=== PATIENT | male | born 1975 | race Caucasian/White ===

== ENCOUNTER 2023-07-24 17:08 | Inpatient (IN) ==
[2023-07-24 18:01] LABS: Basophils # (auto) 0.06 K/uL (0.00-0.20); Basophils % (auto) 0.9 %; Eosinophils # (auto) 0.17 K/uL (0.00-0.50); Eosinophils % (auto) 2.6 %; Hematocrit (blood only) 46.2 % (42.0-52.0); Hemoglobin 16.9 g/dl (14.0-18.0); Immature Granulocytes # (auto) 0.01 K/uL (0.01-0.20); Immature Granulocytes % (auto) 0.2 %; Lymphocytes # (auto) 1.49 K/uL (1.20-3.40); Lymphocytes % (auto) 23.1 %; Mean Corpuscular Hemoglobin 31.5 pg (25.0-34.0); Mean Corpuscular Hgb Conc 36.6 g/dL (32.0-36.0); Mean Corpuscular Volume 86.2 fL (80.0-100.0); Mean Platelet Volume 10.9 fL (9.4-12.4); Monocytes # (auto) 0.62 K/uL (0.11-0.59); Monocytes % (auto) 9.6 %; Neutrophils % (auto) 63.6 %; Platelet Count 216 K/uL (130-400); RDW Coefficient of Variation 12.5 % (11.5-14.5); RDW Standard Deviation 39.3 fL (36.4-46.3); Red Blood Count 5.36 M/uL (4.70-6.10); White Blood Count 6.45 K/ul (4.8-10.8)
[2023-07-24 18:17] LABS: Albumin Globulin Ratio 1.7 (0.9-2); Albumin Level 4.6 gm/dl (3.4-5.0); BUN Creatinine Ratio 18.9 (10-20); Bilirubin,Total 0.5 mg/dl (0.2-1.0); Calcium 9.6 mg/dl (8.6-10.3); Creatinine Clr Calc Pharmacy 104.6 ml/min; Est GFR (Non-African American) 99.2 ml/min; Globulin 2.7 gm/dl (2.5-4.0); Potassium 3.9 mmol/L (3.5-5.1); Total Protein 7.3 gm/dl (6.0-8.3)
[2023-07-24 18:20] LABS: Appearance Urine Clear (Clear); Bilirubin Urine Negative (Negative); Blood Urine Negative (Negative); Color Urine Yellow; Glucose Urine UA Negative (Negative); Ketones Urine Negative (Negative); Leukocyte Esterase Urine Negative (Negative); Nitrite Urine Negative (Negative); Protein Urine Negative (Negative); Specific Gravity Urine 1.006 (1.000-1.030); Urobilinogen Urine Negative (Negative)
[2023-07-24 18:22] LABS: Acetaminophen < 3 ug/ml (10-30); Salicylate < 3.0 mg/dl (3.0-30)
[2023-07-24 18:30] LABS: Thyroid Stimulating Hormone 2.228 uIu/ml (0.300-4.500)
[2023-07-24] MEDS ORDERED: LORazepam 1 MG TAB SL STA (19:07)
[2023-07-24 19:25] LABS: Amphetamines+Metham, Urine Neg (Neg); Barbiturates, Urine Neg (Neg); Benzodiazepine, Urine Neg (Neg); Cocaine, Urine Neg (Neg); MDMA (Ecstacy), Urine Neg (Neg); Marijuana, Urine Neg (Neg); Methadone, Urine Neg (Neg); Opiate, Urine Neg (Neg); Phencyclidine, Urine Neg (Neg)
[2023-07-24] MEDS ORDERED: MAGNESIUM HYDROXIDE SUSP 30 ML UDC PO PRN (21:13)
[2023-07-24] MEDS ORDERED: BISMUTH SUBSALICYLATE LIQD 236 ML PO PRN (21:13)
[2023-07-24] MEDS ORDERED: ALUMINUM/MAGNESIUM SUSP 30 ML UDC PO PRN (21:13)
[2023-07-24] MEDS ORDERED: ACETAMINOPHEN 325 MG TAB PO PRN (21:13)
[2023-07-24] MEDS ORDERED: SODIUM CHLORIDE 0.65% NA SOLN 45 ML (OCEAN) PRN (21:13)
[2023-07-24] MEDS ORDERED: hydrOXYzine HCl 25 MG TAB PO PRN (21:13)
--- NOTE | 2023-07-24 21:30 | Emergency Department Note ---
History of Present Illness General Chief complaint: Mental Health Evaluation Stated complaint: MENTAL EVAL Time Seen by Provider: 07/24/23 17:19 Source: patient and family () History of Present Illness Provider complaint: Mental health evaluation 48-year-old male presents emergency department for mental health evaluation. Patient states he has a history of depression and anxiety. He states he has been feeling suicidal for the last 2 months and recently confessed to his that he is plan to kill himself by shooting himself. He does have access to guns. reports that the patient has not been taking his medications Lexapro or buspirone. The patient does report increased alcohol usage in the last week due to his depression. Past Med/Surg History Medical History No pertinent family history Depression Anxiety Surgical History No pertinent past surgical history Social History Smoking Status: Current some day smoker Preferred Language: Guyanese Feels Safe at Home: Yes Gender Identity: Male Physical Exam Vital Signs Vital Signs - 24 hr 07/24/23 17:13 07/24/23 18:09 Temperature 36.7 C 36.5 C Temperature Source Temporal Artery Scan Oral Pulse Rate 86 Respiratory Rate 19 20 Respiratory Effort / Characteristics Non-Labored Non-Labored Respiratory Depth Normal Normal Blood Pressure 138/93 Blood Pressure [Right Arm] 126/96 Blood Pressure Mean 108 Blood Pressure Mean [Right Arm] 106 Blood Pressure Position [Right Arm] Sitting Pulse Oximetry 99 97 Oxygen Delivery Method Room Air Room Air Sepsis Recent Fever Within 48 Hours No Sepsis New/Unexplained Change in Mental Status No Sepsis Action Taken by Nursing No Action Required Physical Exam GENERAL: oriented to person, place, and time. appears well-developed and well- nourished. HENT: Exam performed. - Head: Normocephalic and atraumatic. EYES: Conjunctivae and EOM are normal. Right eye exhibits no discharge. Left eye exhibits no discharge. No scleral icterus. NECK: Normal range of motion. Neck supple. No JVD present. CV: Normal rate, regular rhythm, normal heart sounds and intact distal pulses. There is no peripheral edema. Palpable radial pulses bue. PULM/CHEST: Effort normal and breath sounds normal. No respiratory distress. No stridor. no wheezes. no rales. ABD: The abdomen is soft. There is no tenderness. NEURO: Motor and sensation grossly intact. SKIN: Skin is warm and dry. He is not diaphoretic. PSYCH: Depressed suicidal. Course Course 171: The patient was evaluated in room B8. A complete history and physical exam was performed 1800: Patient medically cleared. Awaiting psychiatric evaluation and placement. Patient placed in observation at this time. 2100: Patient excepted to 3 S. Administered Medications Discontinued Medications Lorazepam (Lorazepam 1 Mg Tab) 1 mg SL NOW STA Stop: 07/24/23 19:08 Last Admin: 07/24/23 19:12 Dose: 1 mg Documented By: ED Medical Decision Making Laboratory Data Attestation: I reviewed the patient's lab results. 07/24/23 17:31 07/24/23 17:31 Lab Results 07/24/23 07/24/23 07/24/23 Range/Units 17:31 17:32 18:05 WBC 6.45 (4.8-10.8) K/ul RBC 5.36 (4.70-6.10) M/uL Hgb 16.9 (14.0-18.0) g/dl Hct 46.2 (42.0-52.0) % MCV 86.2 (80.0-100.0) fL MCH 31.5 (25.0-34.0) pg MCHC 36.6 H (32.0-36.0) g/dL RDW Std Deviation 39.3 (36.4-46.3) fL RDW Coeff of David 12.5 (11.5-14.5) % Plt Count 216 (130-400) K/uL MPV 10.9 (9.4-12.4) fL Immature Gran % (Auto) 0.2 % Neut % (Auto) 63.6 % Lymph % (Auto) 23.1 % [place] % (Auto) 9.6 % Eos % (Auto) 2.6 % Baso % (Auto) 0.9 % Neut # (Auto) 4.10 (1.40-6.50) K/uL Lymph # (Auto) 1.49 (1.20-3.40) K/uL [place] # (Auto) 0.62 H (0.11-0.59) K/uL Eos # (Auto) 0.17 (0.00-0.50) K/uL Baso # (Auto) 0.06 (0.00-0.20) K/uL Immature Gran # (Auto) 0.01 (0.01-0.20) K/uL Sodium 139 (136-145) mmol/L Potassium 3.9 (3.5-5.1) mmol/L Chloride 104 (98-107) mmol/L Carbon Dioxide 29 (21-32) mmol/L Anion Gap 6 (3-11) BUN 17 (6-23) mg/dl Creatinine 0.90 (0.6-1.4) mg/dl Est Cr Clr Drug Dosing 104.6 ml/min Est GFR ( Amer) 115.0 ml/min Est GFR (Non-Af Amer) 99.2 ml/min BUN/Creatinine Ratio 18.9 (10-20) Glucose 104 H (70-99(Fasting)) mg/dl Calcium 9.6 (8.6-10.3) mg/dl Total Bilirubin 0.5 (0.2-1.0) mg/dl AST 24 (13-39) U/L ALT 29 (7-52) U/L Alkaline Phosphatase 74 (34-104) U/L Total Protein 7.3 (6.0-8.3) gm/dl Albumin 4.6 (3.4-5.0) gm/dl Globulin 2.7 (2.5-4.0) gm/dl Albumin/Globulin Ratio 1.7 (0.9-2) TSH 2.228 (0.300-4.500) uIu/ml Urine Color Yellow Urine Appearance Clear (Clear) Urine pH 7.0 (4.5-7.5) Ur Specific [place] 1.006 (1.000-1.030) Urine Protein Negative (Negative) Urine Glucose (UA) Negative (Negative) Urine Ketones Negative (Negative) Urine Blood Negative (Negative) Urine Nitrite Negative (Negative) Urine Bilirubin Negative (Negative) Urine Urobilinogen Negative (Negative) Ur Leukocyte Esterase Negative (Negative) Salicylates < 3.0 L (3.0-30) mg/dl Urine Opiates Screen Neg (Neg) Ur Methadone, Qual Neg (Neg) Acetaminophen < 3 L (10-30) ug/ml Urine Barbiturates Neg (Neg) Ur Phencyclidine (PCP) Neg (Neg) U Amphetamin/Meth Scrn Neg (Neg) MDMA (Ecstasy) Screen Neg (Neg) U Benzodiazepines Scrn Neg (Neg) Ur Cocaine Metabolite Neg (Neg) U Marijuana (THC) Screen Neg (Neg) Ethyl Alcohol mg/dL < 10.0 (<10.0) mg/dl SARS-CoV-2, RNA, NAAT NEGATIVE (NEGATIVE) MDM Narrative 1719: The patient was evaluated in room B8. A complete history and physical exam was performed 1800: Patient medically cleared. Awaiting psychiatric evaluation and placement. Patient placed in observation at this time. 2100: Patient excepted to 3 S. Observation note Indication: Psych eval/placement Patient, with depression, anxiety was first seen at 1719 hrs and the observation time began at 1800 hrs and was necessary in order to have psych evaluation completed . Upon re-evaluation, 3 hours of observation revealed that the patient should be admitted to 3 S. Disposition date and time July 24, 2023 2100. Impression & Plan Depression with suicidal ideation Discharge Plan Visit Data Chief Complaint: Mental Health Evaluation Stated Complaint: MENTAL EVAL ED Provider: Miguel Laws Discharge Problem: Depression with suicidal ideation Patient Disposition: Admitted As Inpatient Forms Stand Alone Forms: [facility], Suicide Prevention Resources Referrals Referrals: Tate Deluca D.O. [Primary Care Provider] -
[2023-07-24] MEDS: hydrOXYzine HCl 25 MG TAB PO PRN (22:23)
--- NOTE | 2023-07-25 08:02 | History & Physical ---
Date of Service July 25, 2023 Impression / Recommendations Impression 48 yo male with hx of anxiety and previous depression with worsening symptoms in past 2-4 weeks, hx of side effects to multiple SSRIs, Lexapro was most helpful but will not restart as caused hair loss and ?burning in arms. 65 min spent Overall, I spent with this case, including review of chart, direct evaluation of the patient, counseling the patient, coordination with nursing and social work , risk assessment, and documentation. (1) Major depressive disorder, recurrent episode: (2) Generalized anxiety disorder: Plan The patient was admitted to the [facility] ([facility]) on q15 min checks (behavioral with suicide precautions) for safety. The patient will participate in group, recreational, and milieu therapies and will be off ered additional individual and family sessions as clinically appropriate. Discussed possible trial of an SNRI. Inventory Assets Strengths: verbal, utilizes family supports Needs: improve coping skills, safety plan around weapons Suicide Risk Level Suicide Risk Level: High-Moderate (q15 min suicide checks) Risk Factors Assessment Male: Yes : Yes Do You Have Access To A Gun?: Yes ( to secure) Mental Health Diagnoses: Yes Substance Use Disorders: No Previous Attempt: No Family History of Suicide: Yes Previous Psychiatric Hospitalization: No Protective Factors Assessment Baptism Beliefs: Yes : Yes Employed: Yes Supportive Family: Yes Psychiatric History Identifying Data COLIN MEJIAS is a 48-year-old M who currently lives in [place], has no prior inpatient hospitalizations, and was admitted on 07/24/23 21:13 on a 201 voluntary commitment for SI with plan. Chief Complaint "It's hard to explain, I just feel like I could melt." History of Present Illness Today the patient reports dealing with longstanding anxiety mixed with intermittent periods of depression since his 20s. He has taken several medications through his primary care office with some perceived benefit but side effects such as restlessness, "stopped working," or having skin irritation. He hasn't taken any medication for a few months after feeling "off" with Seroquel and Buspar. He notes that life in general is "fine" in that he has stable employment and good relationships with his family. 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 But there is a general decline in his ability to interact socially, and he is very sefl-critical. His sleep is more disrupted due to his anxiety and he has had thoughts of suicide over the past 2 weeks. His therapist encouraged him to go to the ED. His most recent exacerbation was over the summer following a shoulder s urgery. He denies any history of stephy. He confirmed his history as documented by ED CM. as per ED CM last pm: Completed psychiatric assessment with Colin. His Nona remains in the room with his consent and provides some history. Colin follows with an outpatient therapist, Josephine Priest, who referred him to [facility] for treatment. He has no psychiatrist - he was previously prescribed Lexapro and Buspar by his family doctor. He is not taking any medications and has not for approximately one year. He endorses depressive symptoms of sadness, crying spells, feelings of helplessness and hopelessness, self-devaluation, poor concentration, decreased appetite, and difficulty with his sleep. He wakes frequently during the night with severe anxious. He struggles to rate his anxiet y but his states that it is a 10/10. Colin reports that he lives with significant anxiety most of the time so it is hard for him to recognize when it becomes more acute. He endorses hx of panic attacks that can range in frequency and duration. He reports some last several hours and some have lasted several days. He has a family history of depression and anxiety with an uncle and a cousin completing suicide. Colin denies A/V hallucinations, HI and SIB. Denies more than occasional alcohol usage, no tobacco, and no substances. He lives at home with his and two daughters and is employed at [employer]. He does feel his work has been negatively impacted by his mental health. He denies any health problems and does not take any maintenance medications for his health. He is willing and voluntary for treatment with preference to placement to [address] [place] [address]. Past Psychiatric History Previous Psych History: meds per PCP, previous course of therapy Current Psychiatric Diagnosis: MDD, KANA Outpatient Services: therapy with Josephine Priest Previous Psych Admissions: no Do You Have Access To A Gun?: Yes ( to secure) History of Previous Suicide Attempt: No Past Medication Trials: Paxil, Lexapro, Buspar, Wellbutrin (for tobacco cessation), Prozac, Seroquel Allergies Allergy/AdvReac Type Severity Reaction Status Date / Time escitalopram [From Lexapro] AdvReac Intermediate Rash Unverified 07/24/23 22:25 Family History Family History of: Depression (father but also vet) and Suicide Completion (maternal uncle, cousin) Alcohol History Hx of Alcohol Use Over the Past 12 Months: Yes (occasional drinker) AUDIT Total Score: 2 Smoking Use Have You Smoked or Used Tobacco Products in the Last 30 Days: Yes tobacco type: cigars Smoking Status: Current some day smoker Smoking packs per day: 1 Substance History Hx of Prescription Med Misuse Over the Past 12 Months: No Hx of Over the Counter Med Misuse Over the Past 12 Months: No Hx of Inhalent Misuse Over the Past 12 Months: No Hx of Organic Substance Use Over the Past 12 Months: No Hx of Illegal Substances/Street Drug Use Over Past 12 Months: No Problems as a Result of Past Substance Use: None Identified Personal History Living Arrangements: Home Highest Grade Completed: Some College (2 years at [employer]) 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 Marital Status: Number Of Children: 2 young adult daughters living at home Beliefs That Will Affect Care: None Current Legal Problems: No Hx Traumatic Life Events: No Patient History Medical History (Updated 07/25/23 @ 10:34 by Tonya Chen MD) Crohn's disease No pertinent family history Depression Anxiety Surgical History No pertinent past surgical history Social History Smoking Status: Current some day smoker Preferred Language: Luxembourgish Communication Ability: Effective 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: No Beliefs That Will Affect Care: None Feels Safe at Home: Yes Gender Identity: Male Assistive Devices: None Review of Systems Review of Systems: All systems reviewed & are unremarkable except as noted in HPI & below Physical Exam Psychiatric: Orientation: alert and oriented x 3 Apperance: appropriately dressed and appropriately groomed Eye Contact: good eye contact Motor Behavior: no abnormal motor movements Speech: normal rate/rhythm/volume of speech Affect: + depressed affect Mood: + depressed mood Thought Proces s: goal directed thought process Thought Content: reality based without delusions Suicidal Thoughts: + reports suicidal thoughts and + reports suicidal plan (gun was "one way") Homicidal Thoughts: denies homicidal thoughts Hallucinations: no auditory hallucinations and no visual hallucinations Cognition: attention grossly intact and language grossly intact Estimated Intelligence: consistent with education level Insight: + limited insight Judgment: + limited judgement Vital Signs (Past 24 Hours): Last Vital Signs Temp 36.7 C 07/25/23 06:40 Pulse 81 07/25/23 06:41 Resp 18 07/25/23 06:40 BP 117/74 07/25/23 06:41 Pulse Ox 98 07/24/23 21:55 O2 Del Method Room Air 07/24/23 21:55 Exam Statement: A physical exam was performed in the ED by Dr. Laws for the purposes of medical clearance. I accept that physical as correct and adequate for the purposes of the inpatient physical exam. Results & Data ([facility]) Laboratory Results Laboratory Results - last 24 hr 07/24/23 07/24/23 07/24/23 17:31 17:32 18:05 WBC 6.45 RBC 5.36 Hgb 16.9 Hct 46.2 MCV 86.2 MCH 31.5 MCHC 36.6 H RDW Std Deviation 39.3 RDW Coeff of David 12.5 Plt Count 216 MPV 10.9 Immature Gran % (Auto) 0.2 Neut % (Auto) 63.6 Lymph % (Auto) 23.1 [place] % (Auto) 9.6 Eos % (Auto) 2.6 Baso % (Auto) 0.9 Neut # (Auto) 4.10 Lymph # (Auto) 1.49 [place] # (Auto) 0.62 H Eos # (Auto) 0.17 Baso # (Auto) 0.06 Immature Gran # (Auto) 0.01 Sodium 139 Potassium 3.9 Chloride 104 Carbon Dioxide 29 Anion Gap 6 BUN 17 Creatinine 0.90 Est Cr Clr Drug Dosing 104.6 Est GFR ( Amer) 115.0 Est GFR (Non-Af Amer) 99.2 BUN/Creatinine Ratio 18.9 Glucose 104 H Calcium 9.6 Total Bilirubin 0.5 AST 24 ALT 29 Alkaline Phosphatase 74 Total Protein 7.3 Albumin 4.6 Globulin 2.7 Albumin/Globulin Ratio 1.7 TSH 2.228 Urine Color Yellow Urine Appearance Clear Urine pH 7.0 Ur Specific [place] 1.006 Urine Protein Negative Urine Glucose (UA) Negative Urine Ketones Negative Urine Blood Negative Urine Nitrite Negative Urine Bilirubin Negative Urine Urobilinogen Negative Ur Leukocyte Esterase Negative Salicylates < 3.0 L Urine Opiates Screen Neg Ur Methadone, Qual Neg Acetaminophen < 3 L Urine Barbiturates Neg Ur Phencyclidine (PCP) Neg U Amphetamin/Meth Scrn Neg MDMA (Ecstasy) Screen Neg U Benzodiazepines Scrn Neg Ur Cocaine Metabolite Neg U Marijuana (THC) Screen Neg Ethyl Alcohol mg/dL < 10.0 SARS-CoV-2, RNA, NAAT NEGATIVE Current Inpatient Medications Current Inpatient Medications: Current Inpatient Medications Acetaminophen (Acetaminophen 325 Mg Tab) 650 mg PO Q4H PRN PRN Reason: Headache or Minor Fever Stop: 08/23/23 21:12 Al Hydrox/Mg Hydrox/Simethicone (Aluminum/Magnesium Susp 30 Ml Udc) 30 ml PO Q4H PRN PRN Reason: GI Upset Stop: 08/23/23 21:12 Bismuth Subsalicylate (Bismuth Subsalicylate Liqd 236 Ml) 15 ml PO PRN PRN PRN Reason: Loose Stool Stop: 08/23/23 21:12 Hydroxyzine HCl (Hydroxyzine Hcl 25 Mg Tab) 50 mg PO HSZ PRN PRN Reason: Insomnia Stop: 08/23/23 21:12 Last Admin: 07/24/23 22:23 Dose: 50 mg Hydroxyzine HCl (Hydroxyzine Hcl 25 Mg Tab) 25 mg PO Q4H PRN PRN Reason: Anxiety Stop: 08/23/23 21:12 Lorazepam (Lorazepam 1 Mg Tab) 1 mg PO BID PRN PRN Reason: Anxiety/Insomnia Stop: 08/23/23 21:23 Magnesium Hydroxide (Magnesium Hydroxide Susp 30 Ml Udc) 30 ml PO DAILY PRN PRN Reason: Constipation Stop: 08/23/23 21:12 Sodium Chloride (Sodium Chloride 0.65% Na Soln 45 Ml ([place])) 1 - 2 sprays NA PRN PRN PRN Reason: Nasal Dryness/Congestion Stop: 08/23/23 21:12
[2023-07-25] MEDS: LORazepam 1 MG TAB PO PRN (19:44)
[2023-07-25] MEDS: hydrOXYzine HCl 25 MG TAB PO PRN (22:12)
[2023-07-26] MEDS ORDERED: buPROPion HCl 75 MG TABLET PO STA (13:31)
--- NOTE | 2023-07-26 15:31 | Electrocardiogram Report ---
Test Reason : Blood Pressure : / mmHG Vent. Rate : 070 BPM Atrial Rate : 070 BPM P-R Int : 144 ms QRS Dur : 106 ms QT Int : 402 ms P-R-T Axes : 038 029 029 degrees QTc Int : 434 ms Normal sinus rhythm Normal ECG No previous ECGs available Confirmed by Saurabh Thomas ([id number]) on 07/26/2023 3:30:50 PM Referred By: REFERRED SELF Confirmed By:Saurabh Thomas
[2023-07-26] MEDS: LORazepam 1 MG TAB PO PRN (15:40)
--- NOTE | 2023-07-26 18:24 | Psychiatric Progress Note ---
Date of Service July 26, 2023 Impression / Recommendations Impression 48 yo male with hx of anxiety and previous depression with worsening symptoms in past 2-4 weeks, hx of side effects to multiple SSRIs, Lexapro was most helpful but will not restart as caused hair loss and ?burning in arms. 45 min spent spent with this case, including review of chart, direct evaluation of the patient, counseling the patient, coordination with treatment team, ordering medication, documentation. (1) Major depressive disorder, recurrent episode: (2) Generalized anxiety disorder: Plan 07/26/2023: Risks/benefits/alternatives reviewed re: antidepressants for the treatment of depression and/or anxiety. The patient agreed to a trial of Wellbutrin 75 mg this afternoon then 150 mg SR qam with plan to shift to XL if sleep remains OK. 07/25/2023: The patient was admitted to the [facility] ([facility] mental health unit) on q15 min checks (behavioral with suicide precautions) for safety. The patient will participate in group, recreational, and milieu therapies and will be offered additional individual and family sessions as clinically appropriate. Discussed possible trial of an SNRI. Inventory Assets Strengths: verbal, utilizes family supports Needs: improve coping skills, safety plan around weapons Suicide Risk Level Suicide Risk Level: Moderate (q15 min suicide checks) Risk Factors Assessment Male: Yes : Yes Do You Have Access To A Gun?: Yes ( to secure) Mental Health Diagnoses: Yes Substance Use Disorders: No Previous Attempt: No Family History of Suicide: Yes Previous Psychiatric Hospitalization: No Protective Factors Assessment Gnosticist Beliefs: Yes : Yes Employed: Yes Supportive Family: Yes Interval History Identifying Information DALIA MEJIAS is a 48-year-old M who currently lives in [place], has no prior inpatient hospitalizations, and was admitted on 07/24/23 21:13 on a 201 voluntary commitment for SI with plan. Chief Complaint "I didn't realize so many people had problems." Review of Systems Sleep Information Total Hours of Sleep: 6.5 Meal Information Percent Meal Consumed - Breakfast: 100 Percent Meal Consumed - Lunch: 100 Percent Meal Consumed - Dinner: 100 Subjective Subjective Patient was seen & assessed and interval progress reviewed with treatment team. Notes relief of meeting other patients with similar symptoms as doesn't feel as overwhelmed or alone. He is agreeable to retry antidepressant medication. Although anxiety is "constant for years" views his depressive symptoms as more impairing as harder to make decisions, motivate and focus. He has taken Wellbutrin previously and tolerated it without jitteriness so feels most comfortable starting there. Physical Exam Psychiatric Orientation: alert and oriented x 3 Apperance: appropriately dressed and appropriately groomed Eye Contact: good eye contact Motor Behavior: no abnormal motor movements Speech: normal rate/rhythm/volume of speech Affect: + depressed affect Mood: + depressed mood Thought Process: goal directed thought process Thought Content: reality based without delusions Suicidal Thoughts: denies suicidal thoughts (but worried how he'd deal at home) Homicidal Thoughts: denies homicidal thoughts Hallucinations: no auditory hallucinations and no visual hallucinations Cognition: attention grossly intact and language grossly intact Estimated Intelligence: consistent with education level Insight: + limited insight Judgment: + limited judgement Vital Signs (Past 24 Hours) Last Vital Signs Temp 37 C 07/26/23 06:50 Pulse 101 H 07/26/23 06:50 Resp 16 07/26/23 06:50 BP 112/75 07/26/23 06:50 Pulse Ox 98 07/24/23 21:55 O2 Del Method Room Air 07/24/23 21:55 Results & Data ([facility]) Current Inpatient Medications Current Inpatient Medications: Current Inpatient Medications Acetaminophen (Acetaminophen 325 Mg Tab) 650 mg PO Q4H PRN PRN Reason: Headache or Minor Fever Stop: 08/23/23 21:12 Al Hydrox/Mg Hydrox/Simethicone (Aluminum/Magnesium Susp 30 Ml Udc) 30 ml PO Q4H PRN PRN Reason: GI Upset Stop: 08/23/23 21:12 Bismuth Subsalicylate (Bismuth Subsalicylate Liqd 236 Ml) 15 ml PO PRN PRN PRN Reason: Loose Stool Stop: 08/23/23 21:12 Bupropion HCl (Bupropion Sr 150 Mg Tabcr) 150 mg PO QAM JOSELYN Stop: 08/26/23 08:59 Hydroxyzine HCl (Hydroxyzine Hcl 25 Mg Tab) 50 mg PO HSZ PRN PRN Reason: Insomnia Stop: 08/23/23 21:12 Last Admin: 07/25/23 22:12 Dose: 50 mg Hydroxyzine HCl (Hydroxyzine Hcl 25 Mg Tab) 25 mg PO Q4H PRN PRN Reason: Anxiety Stop: 08/23/23 21:12 Lorazepam (Lorazepam 1 Mg Tab) 1 mg PO BID PRN PRN Reason: Anxiety/Insomnia Stop: 08/23/23 21:23 Last Admin: 07/26/23 15:40 Dose: 1 mg Magnesium Hydroxide (Magnesium Hydroxide Susp 30 Ml Udc) 30 ml PO DAILY PRN PRN Reason: Constipation Stop: 08/23/23 21:12 Sodium Chloride (Sodium Chloride 0.65% Na Soln 45 Ml ([place])) 1 - 2 sprays NA PRN PRN PRN Reason: Nasal Dryness/Congestion Stop: 08/23/23 21:12 Mental Health & Subst Abuse Tx Therapist Name of Therapist: Josephine Priest
[2023-07-26] MEDS: hydrOXYzine HCl 25 MG TAB PO PRN (22:35)
[2023-07-27] MEDS: buPROPion SR 150 MG TABCR PO SCH (08:54)
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
[2023-07-27] MEDS: hydrOXYzine HCl 25 MG TAB PO PRN (22:12)
[2023-07-28] MEDS: buPROPion SR 150 MG TABCR PO SCH (08:57)
--- NOTE | 2023-07-28 15:37 | Psychiatric Progress Note ---
Date of Service July 28, 2023 Impression / Recommendations Impression 48 yo male with hx of anxiety and previous depression with worsening symptoms in past 2-4 weeks, hx of side effects to multiple SSRIs, Lexapro was most helpful but will not restart as caused hair loss and ?burning in arms. 07/28/23: improving, tolerating Wellbutrin 40 min spent spent with this case, including review of chart, direct evaluation of the patient, counseling the patient, coordination with treatment team, documentation. (1) Major depressive disorder, recurrent episode: (2) Generalized anxiety disorder: Plan 07/28/23: continue Wellbutrin SR 150 mg. Family meeting. 07/27/23: no evidence of activation on Wellbutrin. Obessive thoughts experiencing are typical of what he was experiencing at home. New disclosure re: past trauma exposure and act of furtherance. 07/26/23: Risks/benefits/alternatives reviewed re: antidepressants for the treatment of depression and/or anxiety. The patient agreed to a trial of Wellbutrin 75 mg this afternoon then 150 mg SR qam with plan to shift to XL if sleep remains OK. 07/25/23: The patient was admitted to the [facility] ([facility] mental health unit) on q15 min checks (behavioral with suicide precautions) for safety. The patient will participate in group, recreational, and milieu therapies and will be offered additional individual and family sessions as clinically appropriate. Discussed possible trial of an SNRI. Inventory Assets Strengths: verbal, utilizes family supports Needs: improve coping skills, safety plan around weapons Suicide Risk Level Suicide Risk Level: Moderate (q15 min suicide checks) Risk Factors Assessment Male: Yes : Yes Do You Have Access To A Gun?: Yes ( to secure) Mental Health Diagnoses: Yes Substance Use Disorders: No Previous Attempt: No Family History of Suicide: Yes Previous Psychiatric Hospitalization: No Protective Factors Assessment Mormonism Beliefs: Yes : Yes Employed: Yes Supportive Family: Yes Interval History Identifying Information DALIA MEJIAS is a 48-year-old M who currently lives in [place], has no prior inpatient hospitalizations, and was admitted on 07/24/23 21:13 on a 201 voluntary commitment for SI with plan. Chief Complaint "I feel more hopeful today". Review of Systems Sleep Information Total Hours of Sleep: 6.5 Meal Information Percent Meal Consumed - Breakfast: 100 Percent Meal Consumed - Lunch: 100 Percent Meal Consumed - Dinner: 100 Subjective Subjective Patient was seen & assessed and interval progress reviewed with treatment team. Patients mood improved as day progressed and denies any recurrence of intrussive suicidal thoughts. He notes minimal jitteriness/light headedness due to medication. Doesn't seem worse any time of day and sleep is intact. Declines decrease to 100 mg SR. Discussed various dosing options (SR vs XL). Physical Exam Psychiatric Orientation: alert and oriented x 3 Apperance: appropriately dressed and appropriately groomed Eye Contact: good eye contact Motor Behavior: no abnormal motor movements Speech: normal rate/rhythm/volume of speech Affect: euthymic affect Mood: + depressed mood Thought Process: goal directed thought process Thought Content: reality based without delusions Suicidal Thoughts: denies suicidal thoughts Homicidal Thoughts: denies homicidal thoughts Hallucinations: no auditory hallucinations and no visual hallucinations Cognition: attention grossly intact and language grossly intact Estimated Intelligence: consistent with education level Vital Signs (Past 24 Hours) Last Vital Signs Temp 36.7 C 07/28/23 06:37 Pulse 82 07/28/23 06:37 Resp 16 07/28/23 06:37 BP 115/80 07/28/23 06:37 Pulse Ox 98 07/24/23 21:55 O2 Del Method Room Air 07/24/23 21:55 Results & Data ([facility]) Current Inpatient Medications Current Inpatient Medications: Current Inpatient Medications Acetaminophen (Acetaminophen 325 Mg Tab) 650 mg PO Q4H PRN PRN Reason: Headache or Minor Fever Stop: 08/23/23 21:12 Al Hydrox/Mg Hydrox/Simethicone (Aluminum/Magnesium Susp 30 Ml Udc) 30 ml PO Q4H PRN PRN Reason: GI Upset Stop: 08/23/23 21:12 Bismuth Subsalicylate (Bismuth Subsalicylate Liqd 236 Ml) 15 ml PO PRN PRN PRN Reason: Loose Stool Stop: 08/23/23 21:12 Bupropion HCl (Bupropion Sr 150 Mg Tabcr) 150 mg PO QAM JOSELYN Stop: 08/26/23 08:59 Last Admin: 07/28/23 08:57 Dose: 150 mg Hydroxyzine HCl (Hydroxyzine Hcl 25 Mg Tab) 50 mg PO HSZ PRN PRN Reason: Insomnia Stop: 08/23/23 21:12 Last Admin: 07/27/23 22:12 Dose: 50 mg Hydroxyzine HCl (Hydroxyzine Hcl 25 Mg Tab) 25 mg PO Q4H PRN PRN Reason: Anxiety Stop: 08/23/23 21:12 Lorazepam (Lorazepam 1 Mg Tab) 1 mg PO BID PRN PRN Reason: Anxiety/Insomnia Stop: 08/23/23 21:23 Last Admin: 07/26/23 15:40 Dose: 1 mg Magnesium Hydroxide (Magnesium Hydroxide Susp 30 Ml Udc) 30 ml PO DAILY PRN PRN Reason: Constipation Stop: 08/23/23 21:12 Sodium Chloride (Sodium Chloride 0.65% Na Soln 45 Ml ([place])) 1 - 2 sprays NA PRN PRN PRN Reason: Nasal Dryness/Congestion Stop: 08/23/23 21:12 Mental Health & Subst Abuse Tx Psychiatrist Name of Psychiatrist: [facility] Date Of Appointment With Psychiatric Provider: 09/05/2022 Time of Appointment with Psychiatrist: 10:30am Psychiatric Appointment Comment: [address] [facility] [place] [id number] Therapist Name of Therapist: Josephine Priest Post Discharge Appointments Primary Care Physician Name Of Family Doctor/PCP: Jason Deluca DO at [facility] Date of Future Appointment with PCP: 07/04/23 Time of Appointment with PCP: 1:30pm Provider Appointment Comment: [place] [id number]
[2023-07-29] MEDS: hydrOXYzine HCl 25 MG TAB PO PRN ×2 (00:23→22:38)
[2023-07-29] MEDS: LORazepam 1 MG TAB PO PRN ×2 (14:43→23:08)
[2023-07-29] MEDS: buPROPion SR 150 MG TABCR PO SCH (15:32)
--- NOTE | 2023-07-29 17:43 | Psychiatric Progress Note ---
Date of Service July 29, 2023 Impression / Recommendations Impression 48 yo male with hx of anxiety and previous depression with worsening symptoms in past 2-4 weeks, hx of side effects to multiple SSRIs, Lexapro was most helpful but will not restart as caused hair loss and ?burning in arms. : Profoundly depressed man who during an extended meeting with nephrology social worker and revealed broad extent of suicidality, e.g., carrying a rifle when he went for walks, scoping out the most appropriate place to shoot himself so his body would be found in time that his organs could be transplanted while minimizing distress to those who found his body; having written a suicide note that he locked in the gun safe so his wouldn't happen upon it and become distressed, but so it'd be ready for use when he needed it. Pt has been very anxious and says this is one of the reasons he's been contemplating suicide. Today reports feeling "wound up" since bupropion was started. Reviewed a broad range of options, including adding an SNRI to the bupropion. However, pt acknowledges a predisposition against using medication and doesn't think he'd continue a multi-drug regimen. Risks and benefits of, and alternatives to, the use of duloxetine (Cymbalta) for Major Depression and Generalized Anxiety Disorder symptoms were reviewed. This discussion included but was not limited to issues known potentially to be associated with use of such medication, especially at high doses or with longer use, including sedation, weight gain, GI side effects, or rarely elevated blood pressure or severe diaphoresis. Discussed the need to avoid abrupt cessation due to risk of discontinuation syndrome. The patient agreed to start a trial of duloxetine. 07/28/23: improving, tolerating Wellbutrin (1) Major depressive disorder, recurrent episode: (2) Generalized anxiety disorder: Plan 07/29/2023: * stop bupropion XL - started 07/26/2023 at 75 mg, increased to 150 mg * start duloxetine 20 mg QAM, anticipate rapid titration to target of 60 mg daily * In addition to the screening labs ordered in the ED, will order vitamin B12 level, folic acid level, 25-OH vitamin D level, ESR to rule out conditions pertinent to psychiatric symptoms. 07/28/23: continue Wellbutrin SR 150 mg. Family meeting. 07/27/23: no evidence of activation on Wellbutrin. Obessive thoughts experiencing are typical of what he was experiencing at home. New disclosure re: past trauma exposure and act of furtherance. 07/26/23: Risks/benefits/alternatives reviewed re: antidepressants for the treatment of depression and/or anxiety. The patient agreed to a trial of Wellbutrin 75 mg this afternoon then 150 mg SR qam with plan to shift to XL if sleep remains OK. 07/25/23: The patient was admitted to the [facility] ([facility] mental health unit) on q15 min checks (behavioral with suicide precautions) for safety. The patient will participate in group, recreational, and milieu therapies and will be offered additional individual and family sessions as clinically appropriate. Discussed possible trial of an SNRI. Inventory Assets Strengths: verbal, utilizes family supports Needs: improve coping skills, safety plan around weapons Suicide Risk Level Suicide Risk Level: Moderate (q15 min suicide checks) Risk Factors Assessment Male: Yes : Yes Do You Have Access To A Gun?: Yes ( to secure) Health Problems: No Mental Health Diagnoses: Yes Substance Use Disorders: No Previous Attempt: No Family History of Suicide: Yes Previous Psychiatric Hospitalization: No Hopelessness: Yes Protective Factors Assessment Judaism Beliefs: Yes : Yes Employed: Yes Stable Relationships: Yes Supportive Family: Yes Interval History Identifying Information DALIA MEJIAS is a 48-year-old M who currently lives in [place], has no prior inpatient hospitalizations, and was admitted on 07/24/23 21:13 on a 201 voluntary commitment for SI with plan. Chief Complaint "Been more wound up". Review of Systems Sleep Information Total Hours of Sleep: 3.5 Meal Information Percent Meal Consumed - Breakfast: 100 Percent Meal Consumed - Lunch: 100 Percent Meal Consumed - Dinner: 100 Subjective Subjective The patient was seen and assessed and interval progress reviewed in a multidisciplinary team meeting with the treatment team. For details, see the "Impression" section. Overall I spent a total of 74 minutes for this inpatient follow-up including review of chart records, review of test results, direct evaluation of the patient [id number], counseling the patient, reconciling and ordering medication, medication education with the patient, risk assessment, discussion during interdisciplinary treatment rounds, and documentation in the electronic health record. Physical Exam Psychiatric Orientation: alert, oriented to person, oriented to place, oriented to time and cooperative Apperance: appropriately dressed and appropriately groomed Eye Contact: + fair eye contact Motor Behavior: no abnormal motor movements Speech: normal rate/rhythm/volume of speech Affect: + constricted affect Mood: + depressed mood and + anxious mood Thought Process: goal directed thought process Thought Content: reality based without delusions Suicidal Thoughts: denies suicidal thoughts, denies suicidal plan (on unit) and denies suicidal intent Homicidal Thoughts: denies homicidal thoughts Hallucinations: no auditory hallucinations and no visual hallucinations Cognition: attention grossly intact and language grossly intact Estimated Intelligence: consistent with education level Insight: + limited insight Judgment: + limited judgement Vital Signs (Past 24 Hours) Last Vital Signs Temp 36.6 C 07/29/23 06:43 Pulse 73 07/29/23 06:43 Resp 18 07/29/23 06:43 BP 128/76 07/29/23 06:43 Pulse Ox 98 07/29/23 06:43 O2 Del Method Room Air 07/29/23 06:43 Results & Data ([facility]) Current Inpatient Medications Current Inpatient Medications: Current Inpatient Medications Acetaminophen (Acetaminophen 325 Mg Tab) 650 mg PO Q4H PRN PRN Reason: Headache or Minor Fever Stop: 08/23/23 21:12 Al Hydrox/Mg Hydrox/Simethicone (Aluminum/Magnesium Susp 30 Ml Udc) 30 ml PO Q4H PRN PRN Reason: GI Upset Stop: 08/23/23 21:12 Bismuth Subsalicylate (Bismuth Subsalicylate Liqd 236 Ml) 15 ml PO PRN PRN PRN Reason: Loose Stool Stop: 08/23/23 21:12 Duloxetine HCl (Duloxetine Hcl 20 Mg Cap) 20 mg PO QAM JOSELYN Stop: 08/29/23 08:59 Hydroxyzine HCl (Hydroxyzine Hcl 25 Mg Tab) 50 mg PO HSZ PRN PRN Reason: Insomnia Stop: 08/23/23 21:12 Last Admin: 07/29/23 00:23 Dose: 50 mg Hydroxyzine HCl (Hydroxyzine Hcl 25 Mg Tab) 25 mg PO Q4H PRN PRN Reason: Anxiety Stop: 08/23/23 21:12 Lorazepam (Lorazepam 1 Mg Tab) 1 mg PO BID PRN PRN Reason: Anxiety/Insomnia Stop: 08/23/23 21:23 Last Admin: 07/29/23 14:43 Dose: 1 mg Magnesium Hydroxide (Magnesium Hydroxide Susp 30 Ml Udc) 30 ml PO DAILY PRN PRN Reason: Constipation Stop: 08/23/23 21:12 Sodium Chloride (Sodium Chloride 0.65% Na Soln 45 Ml ([place])) 1 - 2 sprays NA PRN PRN PRN Reason: Nasal Dryness/Congestion Stop: 08/23/23 21:12 Mental Health & Subst Abuse Tx Psychiatrist Name of Psychiatrist: [facility] Date Of Appointment With Psychiatric Provider: 09/05/2022 Time of Appointment with Psychiatrist: 10:30am Psych[facility] [address] [facility] [place] [address] Therapist Name of Therapist: Josephine Priest Post Discharge Appointments Primary Care Physician Name Of Family Doctor/PCP: Jason Deluca DO at [facility] Date of Future Appointment with PCP: 07/04/23 Time of Appointment with PCP: 1:30pm Provider Appointment Comment: [place] [id number]
[2023-07-29 19:16] LABS: Folate (Folic Acid),Ser orPlas 8.22 ng/ml (>5.38)
[2023-07-30] MEDS ORDERED: DULoxetine HCL 20 MG CAP PO SCH (09:00)
[2023-07-30] MEDS: LORazepam 1 MG TAB PO PRN (09:04)
[2023-07-30] MEDS: ERGOCALCIFEROL 50,000 UNITS 1250 MCG CAP PO SCH (14:22)
[2023-07-30] MEDS: LORazepam 1 MG TAB PO SCH ×2 (14:22→21:51)
--- NOTE | 2023-07-30 16:57 | Psychiatric Progress Note ---
Date of Service July 30, 2023 Impression / Recommendations Impression 48 yo male with hx of anxiety and previous depression with worsening symptoms in past 2-4 weeks, hx of side effects to multiple SSRIs, Lexapro was most helpful but will not restart as caused hair loss and ?burning in arms. 07/30/2023: Guardedly reports feeling somewhat less awful. He says he slept better last night. He tolerated start of duloxetine 20 mg this morning, would like to proceed as planned with increase to 40 mg. Reviewed lab results showing moderate vitamin D deficience and the need to treat this. Discussed again likely benefit and more rapid benefit with addition of a mood stabilizer, to which he remains opposed. : Profoundly depressed man who during an extended meeting with high school social studies tutor and revealed broad extent of suicidality, e.g., carrying a rifle when he went for walks, scoping out the most appropriate place to shoot himself so his body would be found in time that his organs could be transplanted while minimizing distress to those who found his body; having written a suicide note that he locked in the gun safe so his wouldn't happen upon it and become distressed, but so it'd be ready for use when he needed it. Pt has been very anxious and says this is one of the reasons he's been contemplating suicide. Today reports feeling "wound up" since bupropion was started. Reviewed a broad range of options, including adding an SNRI to the bupropion. However, pt acknowledges a predisposition against using medication and doesn't think he'd continue a multi-drug regimen. Risks and benefits of, and alternatives to, the use of duloxetine (Cymbalta) for Major Depression and Generalized Anxiety Disorder symptoms were reviewed. This discussion included but was not limited to issues known potentially to be associated with use of such medication, especially at high doses or with longer use, including sedation, weight gain, GI side effects, or rarely elevated blood pressure or severe diaphoresis. Discussed the need to avoid abrupt cessation due to risk of discontinuation syndrome. The patient agreed to start a trial of duloxetine. 07/28/23: improving, tolerating Wellbutrin (1) Major depressive disorder, recurrent episode: (2) Generalized anxiety disorder: (3) Vitamin D deficiency: Plan 07/30/2023: * increase duloxetine to 40 mg QAM, anticipate rapid titration to target of 60 mg daily * start ergocalciferol 50,000 IU 2 x/wk 07/29/2023: * stop bupropion XL - started 07/26/2023 at 75 mg, increased to 150 mg * start duloxetine 20 mg QAM, anticipate rapid titration to target of 60 mg radha ly * In addition to the screening labs ordered in the ED, will order vitamin B12 level, folic acid level, 25-OH vitamin D level, ESR to rule out conditions pertinent to psychiatric symptoms. 07/28/23: continue Wellbutrin SR 150 mg. Family meeting. 07/27/23: no evidence of activation on Wellbutrin. Obessive thoughts experiencing are typical of what he was experiencing at home. New disclosure re: past trauma exposure and act of furtherance. 07/26/23: Risks/benefits/alternatives reviewed re: antidepressants for the treatment of depression and/or anxiety. The patient agreed to a trial of Wellb utrin 75 mg this afternoon then 150 mg SR qam with plan to shift to XL if sleep remains OK. 07/25/23: The patient was admitted to the [facility] ([facility] unit) on q15 min checks (behavioral with suicide precautions) for safety. The patient will participate in group, recreational, and milieu therapies and will be offered additional individual and family sessions as clinically appropriate. Discussed possible trial of an SNRI. Inventory Assets Strengths: verbal, utilizes family supports Needs: improve coping skills, safety plan around weapons Suicide Risk Level Suicide Risk Level: Moderate (q15 min suicide checks) Risk Factors Assessment Male: Yes : Yes Do You Have Access To A Gun?: Yes ( to secure) Health Problems: No Mental Health Diagnoses: Yes Substance Use Disorders: No Previous Attempt: No Family History of Suicide: Yes Previous Psychiatric Hospitalization: No Hopelessness: Yes Protective Factors Assessment Yazidism Beliefs: Yes : Yes Employed: Yes Stable Relationships: Yes Supportive Family: Yes Interval History Identifying Information DALIA MEJIAS is a 48-year-old M who currently lives in [place], has no prior inpatient hospitalizations, and was admitted on 07/24/23 21:13 on a 201 voluntary commitment for SI with plan. Chief Complaint "I'm not sure how I'm doing". Review of Systems Sleep Information Total Hours of Sleep: 6 Meal Information Percent Meal Consumed - Breakfast: 100 Percent Meal Consumed - Lunch: 100 Percent Meal Consumed - Dinner: 100 Subjective Subjective The patient was seen and assessed and interval progress reviewed in a multidisciplinary team meeting with the treatment team. For details, see the "Impression" section. Overall I spent a total of 57 minutes for this inpatient follow-up including review of chart records, review of test results, direct evaluation of the patient [id number], counseling the patient, reconciling and ordering medication, medication education with the patient, risk assessment, discussion during interdisciplinary treatment rounds, and documentation in the electronic health record. Physical Exam Psychiatric Orientation: alert, oriented to person, oriented to place, oriented to time and cooperative Apperance: appropriately dressed and appropriately groomed Eye Contact: + fair eye contact Motor Behavior: no abnormal motor movements Speech: normal rate/rhythm/volume of speech Affect: + constricted affect Mood: + depressed mood and + anxious mood Thought Process: goal directed thought process Thought Content: reality based without delusions Suicidal Thoughts: denies suicidal thoughts, denies suicidal plan (on unit) and denies suicidal intent Homicidal Thoughts: denies homicidal thoughts Hallucinations: no auditory hallucinations and no visual hallucinations Cognition: attention grossly intact and language grossly intact Estimated Intelligence: consistent with education level Insight: + limited insight Judgment: + limited judgement Vital Signs (Past 24 Hours) Last Vital Signs Temp 36.5 C 07/30/23 06:00 Pulse 80 07/30/23 06:47 Resp 14 07/30/23 06:00 BP 113/79 07/30/23 06:47 Pulse Ox 98 07/29/23 06:43 O2 Del Method Room Air 07/29/23 06:43 Results & Data ([facility]) Laboratory Results Laboratory Results - last 24 hr 07/29/23 18:05 ESR < 1 Vitamin B12 404 25-OH Vitamin D Total 19.5 L Folate 8.22 Current Inpatient Medications Current Inpatient Medications: Current Inpatient Medications Acetaminophen (Acetaminophen 325 Mg Tab) 650 mg PO Q4H PRN PRN Reason: Headache or Minor Fever Stop: 08/23/23 21:12 Al Hydrox/Mg Hydrox/Simethicone (Aluminum/Magnesium Susp 30 Ml Udc) 30 ml PO Q4H PRN PRN Reason: GI Upset Stop: 08/23/23 21:12 Bismuth Subsalicylate (Bismuth Subsalicylate Liqd 236 Ml) 15 ml PO PRN PRN PRN Reason: Loose Stool Stop: 08/23/23 21:12 Duloxetine HCl (Duloxetine Hcl 20 Mg Cap) 40 mg PO QAM [facility] Stop: 08/30/23 08:59 Ergocalciferol (Ergocalciferol 50,000 Units 1250 Mcg Cap) 50,000 units PO SuWe@1400 [facility] Stop: 08/29/23 13:59 Last Admin: 07/30/23 14:22 Dose: 50,000 units Hydroxyzine HCl (Hydroxyzine Hcl 25 Mg Tab) 50 mg PO HSZ PRN PRN Reason: Insomnia Stop: 08/23/23 21:12 Last Admin: 07/29/23 22:38 Dose: 50 mg Hydroxyzine HCl (Hydroxyzine Hcl 25 Mg Tab) 25 mg PO Q4H PRN PRN Reason: Anxiety Stop: 08/23/23 21:12 Lorazepam (Lorazepam 1 Mg Tab) 1 mg PO BID PRN PRN Reason: Anxiety/Insomnia Stop: 08/23/23 21:23 Last Admin: 07/30/23 09:04 Dose: 1 mg Lorazepam (Lorazepam 1 Mg Tab) 1 mg PO Q8 [facility] Stop: 08/29/23 13:59 Last Admin: 07/30/23 14:22 Dose: 1 mg Magnesium Hydroxide (Magnesium Hydroxide Susp 30 Ml Udc) 30 ml PO DAILY PRN PRN Reason: Constipation Stop: 08/23/23 21:12 Sodium Chloride (Sodium Chloride 0.65% Na Soln 45 Ml ([place])) 1 - 2 sprays NA PRN PRN PRN Reason: Nasal Dryness/Congestion Stop: 08/23/23 21:12 Mental Health & Subst Abuse Tx Psychiatrist Name of Psychiatrist: [facility] Date Of Appointment With Psychiatric Provider: 09/05/2022 Time of Appointment with Psychiatrist: 10:30am Psychiatric Appointment Comment: [address] [facility] [place] [address] Therapist Name of Therapist: Josephine Priest Post Discharge Appointments Primary Care Physician Name Of Family Doctor/PCP: Jason Deluca DO at [facility] Date of Future Appointment with PCP: 07/04/23 Time of Appointment with PCP: 1:30pm Provider Appointment Comment: [place] [address] [id number]
[2023-07-30] MEDS: hydrOXYzine HCl 25 MG TAB PO PRN (21:51)
[2023-07-31] MEDS: LORazepam 1 MG TAB PO SCH ×3 (06:27→22:30)
[2023-07-31] MEDS: DULoxetine HCL 20 MG CAP PO SCH (08:54)
--- NOTE | 2023-07-31 10:39 | Psychiatric Progress Note ---
Date of Service July 31, 2023 Impression / Recommendations Impression 48 yo male with hx of anxiety and previous depression with worsening symptoms in past 2-4 weeks, hx of side effects to multiple SSRIs, Lexapro was most helpful but will not restart as caused hair loss and ?burning in arms. 07/31/2023: Reviewed pt's suicide note (scanned into chart, q.v.) that was oddly cheerful and didn't address directly suicidality rather than alluding to it obliquely. It ended by encouraging to take a beach vacation. Presents as brighter, with occasional smile. Has been participating in groups fairly well. Still minimizes reasons for concern about suicide, since as far as he's concerned that was in the past. Discussed at some length plan of titrating duloxetine and whether to add a mood stabilizer such as aripiprazole. 07/30/2023: Guardedly reports feeling somewhat less awful. He says he slept better last night. He tolerated start of duloxetine 20 mg this morning, would like to proceed as planned with increase to 40 mg. Reviewed lab results showing moderate vitamin D deficiency and the need to treat this. Discussed again likely benefit and more rapid benefit with addition of a mood stabilizer, to which he remains opposed. : Profoundly depressed man who during an extended meeting with social science instructor and revealed broad extent of suicidality, e.g., carrying a rifle when he went for walks, scoping out the most appropriate place to shoot himself so his body would be found in time that his organs could be transplanted while minimizing distress to those who found his body; having written a suicide note that he locked in the gun safe so his wouldn't happen upon it and become distressed, but so it'd be ready for use when he needed it. Pt has been very anxious and says this is one of the reasons he's been contemplating suicide. Today reports feeling "wound up" since bupropion was started. Reviewed a broad range of options, including adding an SNRI to the bupropion. However, pt acknowledges a predisposition against using medication and doesn't think he'd continue a multi-drug regimen. Risks and benefits of, and alternatives to, the use of duloxetine (Cymbalta) for Major Depression and Generalized Anxiety Disorder symptoms were reviewed. This discussion included but was not limited to issues known potentially to be associated with use of such medication, especially at high doses or with longer use, including sedation, weight gain, GI side effects, or rarely elevated blood pressure or severe diaphoresis. Discussed the need to avoid abrupt cessation due to risk of discontinuation syndrome. The patient agreed to start a trial of duloxetine. 07/28/23: improving, tolerating Wellbutrin (1) Major depressive disorder, recurrent episode: (2) Generalized anxiety disorder: (3) Vitamin D deficiency: Plan 07/31/2023: * increase duloxetine to 60 mg daily * continue ergocalciferol 50,000 IU 2 x/wk 07/30/2023: * increase duloxetine to 40 mg QAM, anticipate rapid titration to target of 60 mg daily * start ergocalciferol 50,000 IU 2 x/wk 07/29/2023: * stop bupropion XL - started 07/26/2023 at 75 mg, increased to 150 mg * start duloxetine 20 mg QAM, anticipate rapid titration to target of 60 mg daily * In addition to the screening labs ordered in the ED, will order vitamin B12 level, folic acid level, 25-OH vitamin D level, ESR to rule out conditions pertinent to psychiatric symptoms. 07/28/23: continue Wellbutrin SR 150 mg. Family meeting. 07/27/23: no evidence of activation on Wellbutrin. Obessive thoughts experiencing are typical of what he was experiencing at home. New disclosure re: past trauma exposure and act of furtherance. 07/26/23: Risks/benefits/alternatives reviewed re: antidepressants for the treatment of depression and/or anxiety. The patient agreed to a trial of Wellbutrin 75 mg this afternoon then 150 mg SR qam with plan to shift to XL if sleep remains OK. 07/25/23: The patient was admitted to the [facility] ([facility] mental health unit) on q15 min checks (behavioral with suicide precautions) for safety. The patient will participate in group, recreational, and milieu therapies and will be offered additional individual and family sessions as clinically appropriate. Discussed possible trial of an SNRI. Inventory Assets Strengths: verbal, utilizes family supports Needs: improve coping skills, safety plan around weapons Suicide Risk Level Suicide Risk Level: Moderate (q15 min suicide checks) Risk Factors Assessment Male: Yes : Yes Do You Have Access To A Gun?: Yes ( to secure) Health Problems: No Mental Health Diagnoses: Yes Substance Use Disorders: No Previous Attempt: No Family History of Suicide: Yes Previous Psychiatric Hospitalization: No Hopelessness: Yes Protective Factors Assessment Mormon Beliefs: Yes : Yes Employed: Yes Stable Relationships: Yes Supportive Family: Yes Interval History Identifying Information DALIA MEJIAS is a 48-year-old M who currently lives in [place], has no prior inpatient hospitalizations, and was admitted on 07/24/23 21:13 on a 201 voluntary commitment for SI with plan. Chief Complaint "I've been able to smile". Review of Systems Sleep Information Total Hours of Sleep: 6 Meal Information Percent Meal Consumed - Breakfast: 100 Percent Meal Consumed - Lunch: 100 Percent Meal Consumed - Dinner: 100 Subjective Subjective The patient was seen and assessed and interval progress reviewed in a multidisc iplinary team meeting with the treatment team. For details, see the "Impression" section. Overall I spent a total of 63 minutes for this inpatient follow-up including review of chart records, direct evaluation of the patient [id number], counseling the patient, reconciling and ordering medication, medication education with the patient, risk assessment, discussion during interdisciplinary treatment rounds, and documentation in the electronic health record. Physical Exam Psychiatric Orientation: alert, oriented to person, oriented to place, oriented to time and cooperative Apperance: appropriately dressed and appropriately groomed Eye Contact: + fair eye contact Motor Behavior: no abnormal motor movements Speech: normal rate/rhythm/volume of speech Affect: + constricted affect Mood: + depressed mood and + anxious mood Thought Process: goal directed thought process Thought Content: reality based without delusions Suicidal Thoughts: denies suicidal thoughts, denies suicidal plan (on unit) and denies suicidal intent Homicidal Thoughts: denies homicidal thoughts Hallucinations: no auditory hallucinations and no visual hallucinations Cognition: attention grossly intact and language grossly intact Estimated Intelligence: consistent with education level Insight: + limited insight Judgment: + limited judgement Vital Signs (Past 24 Hours) Last Vital Signs Temp 36.8 C 07/31/23 06:41 Pulse 80 07/31/23 06:41 Resp 16 07/31/23 06:41 BP 121/76 07/31/23 06:41 Pulse Ox 97 07/31/23 06:41 O2 Del Method Room Air 07/31/23 06:41 Results & Data ([facility]) Current Inpatient Medications Current Inpatient Medications: Current Inpatient Medications Acetaminophen (Acetaminophen 325 Mg Tab) 650 mg PO Q4H PRN PRN Reason: Headache or Minor Fever Stop: 08/23/23 21:12 Al Hydrox/Mg Hydrox/Simethicone (Aluminum/Magnesium Susp 30 Ml Udc) 30 ml PO Q4H PRN PRN Reason: GI Upset Stop: 08/23/23 21:12 Bismuth Subsalicylate (Bismuth Subsalicylate Liqd 236 Ml) 15 ml PO PRN PRN PRN Reason: Loose Stool Stop: 08/23/23 21:12 Duloxetine HCl (Duloxetine Hcl 20 Mg Cap) 40 mg PO QAM [facility] Stop: 08/30/23 08:59 Last Admin: 07/31/23 08:54 Dose: 40 mg Ergocalciferol (Ergocalciferol 50,000 Units 1250 Mcg Cap) 50,000 units PO SuWe@1400 [facility] Stop: 08/29/23 13:59 Last Admin: 07/30/23 14:22 Dose: 50,000 units Hydroxyzine HCl (Hydroxyzine Hcl 25 Mg Tab) 50 mg PO HSZ PRN PRN Reason: Insomnia Stop: 08/23/23 21:12 Last Admin: 07/30/23 21:51 Dose: 50 mg Hydroxyzine HCl (Hydroxyzine Hcl 25 Mg Tab) 25 mg PO Q4H PRN PRN Reason: Anxiety Stop: 08/23/23 21:12 Lorazepam (Lorazepam 1 Mg Tab) 1 mg PO BID PRN PRN Reason: Anxiety/Insomnia Stop: 08/23/23 21:23 Last Admin: 07/30/23 09:04 Dose: 1 mg Lorazepam (Lorazepam 1 Mg Tab) 1 mg PO Q8 [facility] Stop: 08/29/23 13:59 Last Admin: 07/31/23 06:27 Dose: 1 mg Magnesium Hydroxide (Magnesium Hydroxide Susp 30 Ml Udc) 30 ml PO DAILY PRN PRN Reason: Constipation Stop: 08/23/23 21:12 Sodium Chloride (Sodium Chloride 0.65% Na Soln 45 Ml ([place])) 1 - 2 sprays NA PRN PRN PRN Reason: Nasal Dryness/Congestion Stop: 08/23/23 21:12 Mental Health & Subst Abuse Tx Psychiatrist Name of Psychiatrist: [facility] Date Of Appointment With Psychiatric Provider: 09/05/2022 Time of Appointment with Psychiatrist: 10:30am Psychiatric App[facility]ment [facility] [address] [facility] [place] [address] Therapist Name of Therapist: Josephine Priest Post Discharge Appointments Primary Care Physician Name Of Family Doctor/PCP: Jason Deluca DO at [facility] Date of Future Appointment with PCP: 07/04/23 Time of Appointment with PCP: 1:30pm Provider Appointment Comment: [place] [id number] (1) Major depressive disorder, recurrent episode Major depression episode severity: severe Psychotic features: with psychotic features Qualified Code(s): F33.3 - Major depressive disorder, recurrent, severe with psychotic symptoms
[2023-08-01] MEDS: LORazepam 1 MG TAB PO SCH ×3 (06:19→21:41)
[2023-08-01] MEDS: DULoxetine HCL 20 MG CAP PO SCH (09:20)
--- NOTE | 2023-08-01 12:08 | Psychiatric Progress Note ---
Date of Service August 01, 2023 Impression / Recommendations Impression 48 yo male with hx of anxiety and previous depression with worsening symptoms in past 2-4 weeks, hx of side effects to multiple SSRIs, Lexapro was most helpful but will not restart as caused hair loss and ?burning in arms. 08/01/2023: Humorously chides me for not yet having tried a local brand of bologna he'd recommended to me yesterday. Affect continues gradually to brighten. He attends groups but doesn't interact much with peers outside of them. He thinks his anxiety is under much better control but worries because improvement in depressed mood has been much less noticeable. He tells me he's "not really" having any suicidal thoughts and is pretty vague when I try to get him to be more specific about "not really". He asks about transfer to a facility where ECT could be an option based on a discussion about ECT after I'd completed my note yesterday. I reminded him that while ECT is probably the depression treatment with the fastest results, it still usually takes a couple of weeks to see benefit and that I'm pretty confident that his symptoms will respond to medication. Duloxetine dose has just been increased to 60 mg, at which dose he reports no side effects. Reports middle insomnia but doesn't want to take "one of those sleeping pills that make things weird". Discussed a trial of melatonin, which he has not used before. As he typically does, asks when he can be discharged to which I responded that despite his improvement I still didn't think it was safe for him to be discharged and that he was clearly benefiting from being in the hospital as evidenced by consistent if incremental im provement. 07/31/2023: Reviewed pt's suicide note (scanned into chart, q.v.) that was oddly cheerful and didn't address directly suicidality rather than alluding to it obliquely. It ended by encouraging to take a beach vacation. Presents as brighter, with occasional smile. Has been participating in groups fairly well. Still minimizes reasons for concern about suicide, since as far as he's concerned that was in the past. Discussed at some length plan of titrating duloxetine and whether to add a mood stabilizer such as aripiprazole. 07/30/2023: Guardedly reports feeling somewhat less awful. He says he slept better last night. He tolerated start of duloxetine 20 mg this morning, would like to proceed as planned with increase to 40 mg. Reviewed lab results showing moderate vitamin D deficiency and the need to treat this. Discussed again likely benefit and more rapid benefit with addition of a mood stabilizer, to which he remains opposed. : Profoundly depressed man who during an extended meeting with manager social responsibility and revealed broad extent of suicidality, e.g., carrying a rifle when he went for walks, scoping out the most appropriate place to shoot himself so his body would be found in time that his organs could be transplanted while minimizing distress to those who found his body; having written a suicide note that he locked in the gun safe so his wouldn't happen upon it and become distressed, but so it'd be ready for use when he needed it. Pt has been very anxious and says this is one of the reasons he's been contemplating suicide. Today reports feeling "wound up" since bupropion was started. Reviewed a broad range of options, including adding an SNRI to the bupropion. However, pt acknowledges a predisposition against using medication and doesn't think he'd continue a multi-drug regimen. Risks and benefits of, and alternatives to, the use of duloxetine (Cymbalta) for Major Depression and Generalized Anxiety Disorder symptoms were reviewed. This discussion included but was not limited to issues known potentially to be associated with use of such medication, especially at high doses or with longer use, including sedation, weight gain, GI side effects, or rarely elevated blood pressure or severe diaphoresis. Discussed the need to avoid abrupt cessation due to risk of discontinuation syndrome. The patient agreed to start a trial of duloxetine. 07/28/23: improving, tolerating Wellbutrin (1) Major depressive disorder, recurrent episode: (2) Generalized anxiety disorder: (3) Vitamin D deficiency: Plan 07/31/2023: * continue duloxetine 60 mg daily * continue lorazepam 1 mg Q8H (scheduled) * continue ergocalciferol 50,000 IU 2 x/wk * trial melatonin 6 mg QHS (scheduled) 07/31/2023: * increase duloxetine to 60 mg daily * continue ergocalciferol 50,000 IU 2 x/wk 07/30/2023: * increase duloxetine to 40 mg QAM, anticipate rapid titration to target of 60 mg daily * start ergocalciferol 50,000 IU 2 x/wk 07/29/2023: * stop bupropion XL - started 07/26/2023 at 75 mg, increased to 150 mg * start duloxetine 20 mg QAM, anticipate rapid titration to target of 60 mg daily * In addition to the screening labs ordered in the ED, will order vitamin B12 level, folic acid level, 25-OH vitamin D level, ESR to rule out conditions pertinent to psychiatric symptoms. 07/28/23: continue Wellbutrin SR 150 mg. Family meeting. 07/27/23: no evidence of activation on Wellbutrin. Obessive thoughts experiencing are typical of what he was experiencing at home. New disclosure re: past trauma exposure and act of furtherance. 07/26/23: Risks/benefits/alternatives reviewed re: antidepressants for the treatment of depression and/or anxiety. The patient agreed to a trial of Wellbutrin 75 mg this afternoon then 150 mg SR qam with plan to shift to XL if sleep remains OK. 07/25/23: The patient was admitted to the [facility] ([facility] inpatient mental [facility] unit) on q15 min checks (behavioral with suicide precautions) for safety. The patient will participate in group, recreational, and milieu therapies and will be offered additional individual and family sessions as clinically appropriate. Discussed possible trial of an SNRI. Inventory Assets Strengths: verbal, utilizes family supports Needs: improve coping skills, safety plan around weapons Suicide Risk Level Suicide Risk Level: Moderate (q15 min suicide checks) Risk Factors Assessment Male: Yes : Yes Do You Have Access To A Gun?: Yes ( to secure) Health Problems: No Mental Health Diagnoses: Yes Substance Use Disorders: No Previous Attempt: No Family History of Suicide: Yes Previous Psychiatric Hospitalization: No Hopelessness: Yes Protective Factors Assessment Zoroastrian Beliefs: Yes : Yes Employed: Yes Stable Relationships: Yes Supportive Family: Yes Interval History Identifying Information DALIA MEJIAS is a 48-year-old M who currently lives in [place], has no prior inpatient hospitalizations, and was admitted on 07/24/23 21:13 on a 201 voluntary commitment for SI with plan. Chief Complaint "Anxiety's a lot better". Review of Systems Sleep Information Total Hours of Sleep: 6.5 Meal Information Percent Meal Consumed - Breakfast: 100 Percent Meal Consumed - Lunch: 100 Percent Meal Consumed - Dinner: 100 Subjective Subjective The patient was seen and assessed and interval progress reviewed in a multidisciplinary team meeting with the treatment team. For details, see the "Impression" section. Overall I spent a total of 48 minutes for this inpatient follow-up including review of chart records, direct evaluation of the patient [id number], counseling the patient, reconciling and ordering medication, medication education with the patient, risk assessment, discussion during interdisciplinary treatment rounds, and documentation in the electronic health record. Physical Exam Psychiatric Orientation: alert, oriented to person, oriented to place, oriented to time and cooperative Apperance: appropriately dressed and appropriately groomed Eye Contact: + fair eye contact Motor Behavior: no abnormal motor movements Speech: normal rate/rhythm/volume of speech Affect: + depressed affect and + constricted affect Mood: + depressed mood and + anxious mood Thought Process: goal directed thought process Thought Content: reality based without delusions Suicidal Thoughts: denies suicidal thoughts, denies suicidal plan (on unit) and denies suicidal intent Homicidal Thoughts: denies homicidal thoughts Hallucinations: no auditory hallucinations and no visual hallucinations Cognition: attention grossly intact and language grossly intact Estimated Intelligence: consistent with education level Insight: + limited insight Judgment: + limited judgement Vital Signs (Past 24 Hours) Last Vital Signs Temp 36.8 C 08/01/23 06:22 Pulse 94 H 08/01/23 06:23 Resp 16 08/01/23 06:22 BP 123/73 08/01/23 06:23 Pulse Ox 97 07/31/23 06:41 O2 Del Method Room Air 07/31/23 06:41 Results & Data ([facility]) Current Inpatient Medications Current Inpatient Medications: Current Inpatient Medications Acetaminophen (Acetaminophen 325 Mg Tab) 650 mg PO Q4H PRN PRN Reason: Headache or Minor Fever Stop: 08/23/23 21:12 Al Hydrox/Mg Hydrox/Simethicone (Aluminum/Magnesium Susp 30 Ml Udc) 30 ml PO Q4H PRN PRN Reason: GI Upset Stop: 08/23/23 21:12 Bismuth Subsalicylate (Bismuth Subsalicylate Liqd 236 Ml) 15 ml PO PRN PRN PRN Reason: Loose Stool Stop: 08/23/23 21:12 Duloxetine HCl (Duloxetine Hcl 20 Mg Cap) 40 mg PO QAM JOSELYN Stop: 08/30/23 08:59 Last Admin: 08/01/23 09:20 Dose: 40 mg Ergocalciferol (Ergocalciferol 50,000 Units 1250 Mcg Cap) 50,000 units PO SuWe@1400 JOSELYN Stop: 08/29/23 13:59 Last Admin: 07/30/23 14:22 Dose: 50,000 units Hydroxyzine HCl (Hydroxyzine Hcl 25 Mg Tab) 50 mg PO HSZ PRN PRN Reason: Insomnia Stop: 08/23/23 21:12 Last Admin: 07/30/23 21:51 Dose: 50 mg Hydroxyzine HCl (Hydroxyzine Hcl 25 Mg Tab) 25 mg PO Q4H PRN PRN Reason: Anxiety Stop: 08/23/23 21:12 Lorazepam (Lorazepam 1 Mg Tab) 1 mg PO BID PRN PRN Reason: Anxiety/Insomnia Stop: 08/23/23 21:23 Last Admin: 07/30/23 09:04 Dose: 1 mg Lorazepam (Lorazepam 1 Mg Tab) 1 mg PO Q8 JOSELYN Stop: 08/29/23 13:59 Last Admin: 08/01/23 06:19 Dose: 1 mg Magnesium Hydroxide (Magnesium Hydroxide Susp 30 Ml Udc) 30 ml PO DAILY PRN PRN Reason: Constipation Stop: 08/23/23 21:12 Sodium Chloride (Sodium Chloride 0.65% Na Soln 45 Ml ([place])) 1 - 2 sprays NA PRN PRN PRN Reason: Nasal Dryness/Congestion Stop: 08/23/23 21:12 Mental Health & Subst Abuse Tx Psychiatrist Name of Psychiatrist: [facility] Date Of Appointment With Psychiatric Provider: 09/05/2022 Time of Appointment with Psychiatrist: 10:30am Psychiatric Appointment Comment: [address] [place] [address] Therapist Name of Therapist: Josephine Priest Post Discharge Appointments Primary Care Physician Name Of Family Doctor/PCP: Jason Deluca DO at [facility] Date of Future Appointment with PCP: 07/04/23 Time of Appointment with PCP: 1:30pm Provider Appointment Comment: [place] [address] (1) Major depressive disorder, recurrent episode Major depression episode severity: severe Psychotic features: with psychotic features Qualified Code(s): F33.3 - Major depressive disorder, recurrent, severe with psychotic symptoms
[2023-08-01] MEDS ORDERED: MELATONIN 3 MG TAB PO SCH (22:00)
[2023-08-02] MEDS: LORazepam 1 MG TAB PO SCH ×3 (06:28→21:28)
[2023-08-02] MEDS: DULoxetine HCL 60 MG CAP PO SCH (08:51)
[2023-08-02] MEDS: ERGOCALCIFEROL 50,000 UNITS 1250 MCG CAP PO SCH (13:00)
--- NOTE | 2023-08-02 13:45 | Psychiatric Progress Note ---
Date of Service August 02, 2023 Impression / Recommendations Impression 48 yo male with hx of anxiety and previous depression with worsening symptoms in past 2-4 weeks, hx of side effects to multiple SSRIs, Lexapro was most helpful but will not restart as caused hair loss and ?burning in arms. 08/02/2023: Affect continues slowly to improve. He's attending most groups. Melatonin 6 mg taken last night appears to have been of no benefit for sleep. He reports finding himself very distracted by his roommate (who isn't objectively difficult-seeming) and unable to sleep with another person in the room. He's somewhat hesitant to use "a prescription for sleep". Reviewed the possibility of a mood stabilizer with sedating effects, which could also lead to faster mood response, but he was not comfortable with that option. Reviewed trazodone at some length, including rare risk of priapism. He'd like to try that. Has been tolerating duloxetine at a 60 mg dose without evidence of side effects. Will continue this dose. 08/01/2023: Humorously chides me for not yet having tried a local brand of bologna he'd recommended to me yesterday. Affect continues gradually to brighten. He attends groups but doesn't interact much with peers outside of them. He thinks his anxiety is under much better control but worries because improvement in depressed mood has been much less noticeable. He tells me he's "not really" having any suicidal thoughts and is pretty vague when I try to get him to be more specific about "not really". He asks about transfer to a facility where ECT could be an option based on a discussion about ECT after I'd completed my note yesterday. I reminded him that while ECT is probably the depression treatment with the fastest results, it still usually takes a couple of weeks to see benefit and that I'm pretty confident that his symptoms will respond to medication. Duloxetine dose has just been increased to 60 mg, at which dose he reports no side effects. Reports middle insomnia but doesn't want to take "one of those sleeping pills that make things weird". Discussed a trial of melatonin, which he has not used before. As he typically does, asks when he can be discharged to which I responded that despite his improvement I still didn't think it was safe for him to be discharged and that he was clearly benefiting from being in the hospital as evidenced by consistent if incremental improvement. 07/31/2023: Reviewed pt's suicide note (scanned into chart, q.v.) that was oddly cheerful and didn't address directly suicidality rather than alluding to it obliquely. It ended by encouraging to take a beach vacation. Presents as brighter, with occasional smile. Has been participating in groups fairly well. Still minimizes reasons for concern about suicide, since as far as he's concerned that was in the past. Discussed at some length plan of titrating duloxetine and whether to add a mood stabilizer such as aripiprazole. 07/30/2023: Guardedly reports feeling somewhat less awful. He says he slept better last night. He tolerated start of duloxetine 20 mg this morning, would like to proceed as planned with increase to 40 mg. Reviewed lab results showing moderate vitamin D deficiency and the need to treat this. Discussed again likely benefit and more rapid benefit with addition of a mood stabilizer, to which he remains opposed. : Profoundly depressed man who during an extended meeting with social professionals and revealed broad extent of suicidality, e.g., carrying a rifle when he went for walks, scoping out the most appropriate place to shoot himself so his body would be found in time that his organs could be transplanted while minimizing distress to those who found his body; having written a suicide note that he locked in the gun safe so his wouldn't happen upon it and become distressed, but so it'd be ready for use when he needed it. Pt has been very anxious and says this is one of the reasons he's been contemplating suicide. Today reports feeling "wound up" since bupropion was started. Reviewed a broad range of options, including adding an SNRI to the bupropion. However, pt acknowledges a predisposition against using medication and doesn't think he'd continue a multi-drug regimen. Risks and benefits of, and alternatives to, the use of duloxetine (Cymbalta) for Major Depression and Generalized Anxiety Disorder symptoms were reviewed. This discussion included but was not limited to issues known potentially to be associated with use of such medication, especially at high doses or with longer use, including sedation, weight gain, GI side effects, or rarely elevated blood pressure or severe diaphoresis. Discussed the need to avoid abrupt cessation due to risk of discontinuation syndrome. The patient agreed to start a trial of duloxetine. 07/28/23: improving, tolerating Wellbutrin (1) Major depressive disorder, recurrent episode: (2) Generalized anxiety disorder: (3) Vitamin D deficiency: Plan 08/02/2023: * continue duloxetine 60 mg daily * continue lorazepam 1 mg Q8H (scheduled) * continue ergocalciferol 50,000 IU 2 x/wk * stop melatonin * trial trazodone 100 mg QHS with repeat of 50 mg if not asleep within 1 hour * A private room is medically necessary for the safety of self and others. 08/01/2023: * continue duloxetine 60 mg daily * continue lorazepam 1 mg Q8H (scheduled) * continue ergocalciferol 50,000 IU 2 x/wk * trial melatonin 6 mg QHS (scheduled) 07/31/2023: * increase duloxetine to 60 mg daily * continue ergocalciferol 50,000 IU 2 x/wk 07/30/2023: * increase duloxetine to 40 mg QAM, anticipate rapid titration to target of 60 mg daily * start ergocalciferol 50,000 IU 2 x/wk 07/29/2023: * stop bupropion XL - started 07/26/2023 at 75 mg, increased to 150 mg * start duloxetine 20 mg QAM, anticipate rapid titration to target of 60 mg daily * In addition to the screening labs ordered in the ED, will order vitamin B12 level, folic acid level, 25-OH vitamin D level, ESR to rule out conditions pertinent to psychiatric symptoms. 07/28/23: continue Wellbutrin SR 150 mg. Family meeting. 07/27/23: no evidence of activation on Wellbutrin. Obessive thoughts experiencing are typical of what he was experiencing at home. New disclosure re: past trauma exposure and act of furtherance. 07/26/23: Risks/benefits/alternatives reviewed re: antidepressants for the treatment of depression and/or anxiety. The patient agreed to a trial of Wellbutrin 75 mg this afternoon then 150 mg SR qam with plan to shift to XL if sleep remains OK. 07/25/23: The patient was admitted to the [facility] ([facility] mental [facility] unit) on q15 min checks (behavioral with suicide precautions) for safety. The patient will participate in group, recreational, and milieu therapies and will be offered additional individual and family sessions as clinically appropriate. Discussed possible trial of an SNRI. Inventory Assets Strengths: verbal, utilizes family supports Needs: improve coping skills, safety plan around weapons Suicide Risk Level Suicide Risk Level: Moderate (q15 min suicide checks) Risk Factors Assessment Male: Yes : Yes Do You Have Access To A Gun?: Yes ( to secure) Health Problems: No Mental Health Diagnoses: Yes Substance Use Disorders: No Previous Attempt: No Family History of Suicide: Yes Previous Psychiatric Hospitalization: No Hopelessness: Yes Protective Factors Assessment Adventism Beliefs: Yes : Yes Employed: Yes Stable Relationships: Yes Supportive Family: Yes Interval History Identifying Information DALIA MEJIAS is a 48-year-old M who currently lives in [place], has no prior inpatient hospitalizations, and was admitted on 07/24/23 21:13 on a 201 voluntary commitment for SI with plan. Chief Complaint "Not sleeping too well". Review of Systems Sleep Information Total Hours of Sleep: 6.5 Sleep Comments: Pt gets Ativan and Melatonin for sleep. Meal Information Percent Meal Consumed - Breakfast: 100 Percent Meal Consumed - Lunch: 100 Percent Meal Consumed - Dinner: 100 Subjective Subjective The patient was seen and assessed and interval progress reviewed in a multidisciplinary team meeting with the treatment team. For details, see the "Impression" section. Overall I spent a total of 53 minutes for this inpatient follow-up including review of chart records, review of test results, direct evaluation of the patient [id number], counseling the patient, reconciling and ordering medication, medication education with the patient, risk assessment, discussion during interdisciplinary treatment rounds, and documentation in the electronic health record. Physical Exam Psychiatric Orientation: alert, oriented to person, oriented to place, oriented to time and cooperative Apperance: appropriately dressed and appropriately groomed Eye Contact: + fair eye contact Motor Behavior: no abnormal motor movements Speech: normal rate/rhythm/volume of speech Affect: + depressed affect and + constricted affect Mood: + depressed mood and + anxious mood Thought Process: goal directed thought process Thought Content: reality based without delusions Suicidal Thoughts: denies suicidal thoughts, denies suicidal plan (on unit) and denies suicidal intent Homicidal Thoughts: denies homicidal thoughts Hallucinations: no auditory hallucinations and no visual hallucinations Cognition: attention grossly intact and language grossly intact Estimated Intelligence: consistent with education level Insight: + limited insight Judgment: + limited judgement Vital Signs (Past 24 Hours) Last Vital Signs Temp 36.4 C L 08/02/23 06:27 Pulse 81 08/02/23 06:28 Resp 16 08/02/23 06:27 BP 114/73 08/02/23 06:28 Pulse Ox 97 07/31/23 06:41 O2 Del Method Room Air 07/31/23 06:41 Results & Data ([facility]) Current Inpatient Medications Current Inpatient Medications: Current Inpatient Medications Acetaminophen (Acetaminophen 325 Mg Tab) 650 mg PO Q4H PRN PRN Reason: Headache or Minor Fever Stop: 08/23/23 21:12 Al Hydrox/Mg Hydrox/Simethicone (Aluminum/Magnesium Susp 30 Ml Udc) 30 ml PO Q4H PRN PRN Reason: GI Upset Stop: 08/23/23 21:12 Bismuth Subsalicylate (Bismuth Subsalicylate Liqd 236 Ml) 15 ml PO PRN PRN PRN Reason: Loose Stool Stop: 08/23/23 21:12 Duloxetine HCl (Duloxetine Hcl 60 Mg Cap) 60 mg PO QAM JOSELYN Stop: 09/01/23 08:59 Last Admin: 08/02/23 08:51 Dose: 60 mg Ergocalciferol (Ergocalciferol 50,000 Units 1250 Mcg Cap) 50,000 units PO SuWe@1400 JOSELYN Stop: 08/29/23 13:59 Last Admin: 08/02/23 13:00 Dose: 50,000 units Hydroxyzine HCl (Hydroxyzine Hcl 25 Mg Tab) 50 mg PO HSZ PRN PRN Reason: Insomnia Stop: 08/23/23 21:12 Last Admin: 07/30/23 21:51 Dose: 50 mg Hydroxyzine HCl (Hydroxyzine Hcl 25 Mg Tab) 25 mg PO Q4H PRN PRN Reason: Anxiety Stop: 08/23/23 21:12 Lorazepam (Lorazepam 1 Mg Tab) 1 mg PO BID PRN PRN Reason: Anxiety/Insomnia Stop: 08/23/23 21:23 Last Admin: 07/30/23 09:04 Dose: 1 mg Lorazepam (Lorazepam 1 Mg Tab) 1 mg PO Q8 JOSELYN Stop: 08/29/23 13:59 Last Admin: 08/02/23 13:00 Dose: 1 mg Magnesium Hydroxide (Magnesium Hydroxide Susp 30 Ml Udc) 30 ml PO DAILY PRN PRN Reason: Constipation Stop: 08/23/23 21:12 Melatonin (Melatonin 3 Mg Tab) 6 mg PO HS JOSELYN Stop: 08/31/23 21:59 Last Admin: 08/01/23 21:41 Dose: 6 mg Sodium Chloride (Sodium Chloride 0.65% Na Soln 45 Ml ([place])) 1 - 2 sprays NA PRN PRN PRN Reason: Nasal Dryness/Congestion Stop: 08/23/23 21:12 Mental Health & Subst Abuse Tx Psychiatrist Name of Psychiatrist: [facility] Date Of Appointment With Psychiatric Provider: 09/05/2022 Time of Appointment with Psychiatrist: 10:30am Psychiatric Appointment Comment: [address] [facility] [place] [address] Therapist Name of Therapist: Josephine Priest Post Discharge Appointments Primary Care Physician Name Of Family Doctor/PCP: Jason Deluca DO at [facility] Date of Future Appointment with PCP: 07/04/23 Time of Appointment with PCP: 1:30pm Provider Appointment Comment: [place], [place] [id number] (1) Major depressive disorder, recurrent episode Major depression episode severity: severe Psychotic features: with psychotic features Qualified Code(s): F33.3 - Major depressive disorder, recurrent, severe with psychotic symptoms
[2023-08-02] MEDS ORDERED: traZODone HCL 50 MG TAB PO PRN (18:14)
[2023-08-02] MEDS: traZODone HCL 100 MG TAB PO SCH (21:28)
[2023-08-03] MEDS: LORazepam 1 MG TAB PO SCH ×3 (06:32→21:22)
[2023-08-03] MEDS: DULoxetine HCL 60 MG CAP PO SCH (08:30)
--- NOTE | 2023-08-03 10:33 | Psychiatric Progress Note ---
Date of Service August 03, 2023 Impression / Recommendations Impression 48 yo male with hx of anxiety and previous depression with worsening symptoms in past 2-4 weeks, hx of side effects to multiple SSRIs, Lexapro was most helpful but will not restart as caused hair loss and ?burning in arms. 08/03/2023: Slept much better last night after taking trazodone (with no repeat) and with no roommate. His affect continues to improve, but he reports ongoing suicidal thoughts. These have a ruminative or almost obsessive quality and he tells me that at times these thoughts are ego-dystonic but that the more he "chews them over, the harder they are to shake". He really doesn't seem to have any other obsessive thoughts or any compulsive behaviors so I doubt this represents OCD. However, there certainly is a strong ruminative quality to what he describes. Discussed with pt that duloxetine is a good option for actual OCD and that the mood stabilizer olanzapine has been shown to reduce obsessive thoughts and might help reduce the intrusive and repetitive suicidal thoughts. He's really not interested in adding such a medication. 08/02/2023: Affect continues slowly to improve. He's attending most groups. Melatonin 6 mg taken last night appears to have been of no benefit for sleep. He reports finding himself very distracted by his roommate (who isn't objectively difficult-seeming) and unable to sleep with another person in the room. He's somewhat hesitant to use "a prescription for sleep". Reviewed the possibility of a mood stabilizer with sedating effects, which could also lead to faster mood response, but he was not comfortable with that option. Reviewed trazodone at so me length, including rare risk of priapism. He'd like to try that. Has been tolerating duloxetine at a 60 mg dose without evidence of side effects. Will continue this dose. 08/01/2023: Humorously chides me for not yet having tried a local brand of bologna he'd recommended to me yesterday. Affect continues gradually to brighten. He attends groups but doesn't interact much with peers outside of [facility]. He thinks his anxiety is under much better control but worries because improvement in depressed mood has been much less noticeable. He tells me he's "not really" having any suicidal thoughts and is pretty vague when I try to get him to be more specific about "not really". He asks about transfer to a facility where ECT could be an option based on a discussion about ECT after I'd completed my note yesterday. I reminded him that while ECT is probably the depression treatment with the fastest results, it still usually takes a couple of weeks to see benefit and that I'm pretty confident that his symptoms will respond to medication. Duloxetine dose has just been increased to 60 mg, at which dose he reports no side effects. Reports middle insomnia but doesn't want to take "one of those sleeping pills that make things weird". Discussed a trial of melatonin, which he has not used before. As he typically does, asks when he can be discharged to which I responded that despite his improvement I still didn't think it was safe for him to be discharged and that he was clearly benefiting from being in the hospital as evidenced by consistent if incremental improvement. 07/31/2023: Reviewed pt's suicide note (scanned into [facility], [employer] that was oddly cheerful and didn't address directly suicidality rather than alluding to it obliquely. It ended by encouraging to take a beach vacation. Presents as brighter, with occasional smile. Has been participating in groups fairly well. Still minimizes reasons for concern about suicide, since as far as he's concerned that was in the past. Discussed at some length plan of titrating duloxetine and whether to add a mood stabilizer such as aripiprazole. 07/30/2023: Guardedly reports feeling somewhat less awful. He says he slept better last night. He tolerated start of duloxetine 20 mg this morning, would like to proceed as planned with increase to 40 mg. Reviewed lab results showing moderate vitamin D deficiency and the need to treat this. Discussed again likely benefit and more rapid benefit with addition of a mood stabilizer, to which he remains opposed. : Profoundly depressed man who during an extended meeting with social media specialist and revealed broad extent of suicidality, e.g., carrying a rifle when he went for walks, scoping out the most appropriate place to shoot himself so his body would be found in time that his organs could be transplanted while minimizing distress to those who found his body; having written a suicide note that he locked in the gun safe so his wouldn't happen upon it and become distressed, but so it'd be ready for use when he needed it. Pt has been very anxious and says this is one of the reasons he's been contemplating suicide. Today reports feeling "wound up" since bupropion was started. Reviewed a broad range of options, including adding an SNRI to the bupropion. However, pt acknowledges a predisposition against using medication and doesn't think he'd continue a multi-drug regimen. Risks and benefits of, and alternatives to, the use of duloxetine (Cymbalta) for Major Depression and Generalized Anxiety Disorder symptoms were reviewed. This discussion included but was not limited to issues known potentially to be associated with use of such medication, especially at high doses or with longer use, including sedation, weight gain, GI side effects, or rarely elevated blood pressure or severe diaphoresis. Discussed the need to avoid abrupt cessation due to risk of discontinuation syndrome. The patient agreed to start a trial of duloxetine. 07/28/23: improving, tolerating Wellbutrin (1) Major depressive disorder, recurrent episode: (2) Generalized anxiety disorder: (3) Vitamin D deficiency: Plan 08/03/2023: * continue duloxetine 60 mg daily * continue lorazepam 1 mg Q8H (scheduled) * continue ergocalciferol 50,000 IU 2 x/wk * continue trazodone 100 mg QHS with repeat of 50 mg if not asleep within 1 hour * A private room is medically necessary for the safety of self and others. 08/02/2023: * continue duloxetine 60 mg daily * continue lorazepam 1 mg Q8H (scheduled) * continue ergocalciferol 50,000 IU 2 x/wk * stop melatonin * trial trazodone 100 mg QHS with repeat of 50 mg if not asleep within 1 hour * A private room is medically necessary for the safety of self and others. 08/01/2023: * continue duloxetine 60 mg daily * continue lorazepam 1 mg Q8H (scheduled) * continue ergocalciferol 50,000 IU 2 x/wk * trial melatonin 6 mg QHS (scheduled) 07/31/2023: * increase duloxetine to 60 mg daily * continue ergocalciferol 50,000 IU 2 x/wk 07/30/2023: * increase duloxetine to 40 mg QAM, anticipate rapid titration to target of 60 mg daily * start ergocalciferol 50,000 IU 2 x/wk 07/29/2023: * stop bupropion XL - started 07/26/2023 at 75 mg, increased to 150 mg * start duloxetine 20 mg QAM, anticipate rapid titration to target of 60 mg daily * In addition to the screening labs ordered in the ED, will order vitamin B12 level, folic acid level, 25-OH vitamin D level, ESR to rule out conditions pertinent to psychiatric symptoms. 07/28/23: continue Wellbutrin SR 150 mg. Family meeting. 07/27/23: no evidence of activation on Wellbutrin. Obessive thoughts experiencing are typical of what he was experiencing at home. New disclosure re: past trauma exposure and act of furtherance. 07/26/23: Risks/benefits/alternatives reviewed re: antidepressants for the treatment of depression and/or anxiety. The patient agreed to a trial of Wellbutrin 75 mg this afternoon then 150 mg SR qam with plan to shift to XL if sleep remains OK. 07/25/23: The patient was admitted to the [facility] ([facility] inpatient mental health unit) on q15 min checks (behavioral with suicide precautions) for safety. The patient will participate in group, recreational, and milieu therapies and will be offered additional individual and family sessions as clinically appropriate. Discussed possible trial of an SNRI. Inventory Assets Strengths: verbal, utilizes family supports Needs: improve coping skills, safety plan around weapons Suicide Risk Level Suicide Risk Level: Moderate (q15 min suicide checks) Risk Factors Assessment Male: Yes : Yes Do You Have Access To A Gun?: Yes ( to secure) Health Problems: No Mental Health Diagnoses: Yes Substance Use Disorders: No Previous Attempt: No Family History of Suicide: Yes Previous Psychiatric Hospitalization: No Hopelessness: Yes Protective Factors Assessment Jain Beliefs: Yes : Yes Employed: Yes Stable Relationships: Yes Supportive Family: Yes Interval History Identifying Information DALIA MEJIAS is a 48-year-old M who currently lives in [place], has no prior inpatient hospitalizations, and was admitted on 07/24/23 21:13 on a 201 voluntary commitment for SI with plan. Chief Complaint "Slept a lot better". Review of Systems Sleep Information Total Hours of Sleep: 6.75 Meal Information Percent Meal Consumed - Breakfast: 100 Percent Meal Consumed - Lunch: 100 Percent Meal Consumed - Dinner: 100 Subjective Subjective The patient was seen and assessed and interval progress reviewed in a multidisciplinary team meeting with the treatment team. For details, see the "Impression" section. Overall I spent a total of 54 minutes for this inpatient follow-up including review of chart records, direct evaluation of the patient [id number], counseling the patient, reconciling and ordering medication, medication education with the patient, risk assessment, discussion during interdisciplinary treatment rounds, and documentation in the electronic health record. Physical Exam Psychiatric Orientation: alert, oriented to person, oriented to place, oriented to time and cooperative Apperance: appropriately dressed and appropriately groomed Eye Contact: + fair eye contact Motor Behavior: no abnormal motor movements Speech: normal rate/rhythm/volume of speech Affect: + constricted affect Mood: + depressed mood and + anxious mood Thought Process: goal directed thought process Thought Content: reality based without delusions Suicidal Thoughts: denies suicidal plan (on unit) and denies suicidal intent; + reports suicidal thoughts Homicidal Thoughts: denies homicidal thoughts Hallucinations: no auditory hallucinations and no visual hallucinations Cognition: attention grossly intact and language grossly intact Estimated Intelligence: consistent with education level Insight: + limited insight Judgment: + limited judgement Vital Signs (Past 24 Hours) Last Vital Signs Temp 36.9 C 08/03/23 06:00 Pulse 89 08/03/23 07:01 Resp 16 08/03/23 06:00 BP 98/61 L 08/03/23 07:01 Pulse Ox 97 07/31/23 06:41 O2 Del Method Room Air 07/31/23 06:41 Results & Data ([facility]) Current Inpatient Medications Current Inpatient Medications: Current Inpatient Medications Acetaminophen (Acetaminophen 325 Mg Tab) 650 mg PO Q4H PRN PRN Reason: Headache or Minor Fever Stop: 08/23/23 21:12 Al Hydrox/Mg Hydrox/Simethicone (Aluminum/Magnesium Susp 30 Ml Udc) 30 ml PO Q4H PRN PRN Reason: GI Upset Stop: 08/23/23 21:12 Bismuth Subsalicylate (Bismuth Subsalicylate Liqd 236 Ml) 15 ml PO PRN PRN PRN Reason: Loose Stool Stop: 08/23/23 21:12 Duloxetine HCl (Duloxetine Hcl 60 Mg Cap) 60 mg PO QAM [facility] Stop: 09/01/23 08:59 Last Admin: 08/03/23 08:30 Dose: 60 mg Ergocalciferol (Ergocalciferol 50,000 Units 1250 Mcg Cap) 50,000 units PO SuWe@1400 [facility] Stop: 08/29/23 13:59 Last Admin: 08/02/23 13:00 Dose: 50,000 units Hydroxyzine HCl (Hydroxyzine Hcl 25 Mg Tab) 50 mg PO HSZ PRN PRN Reason: Insomnia Stop: 08/23/23 21:12 Last Admin: 07/30/23 21:51 Dose: 50 mg Hydroxyzine HCl (Hydroxyzine Hcl 25 Mg Tab) 25 mg PO Q4H PRN PRN Reason: Anxiety Stop: 08/23/23 21:12 Lorazepam (Lorazepam 1 Mg Tab) 1 mg PO BID PRN PRN Reason: Anxiety/Insomnia Stop: 08/23/23 21:23 Last Admin: 07/30/23 09:04 Dose: 1 mg Lorazepam (Lorazepam 1 Mg Tab) 1 mg PO Q8 [facility] Stop: 08/29/23 13:59 Last Admin: 08/03/23 06:32 Dose: 1 mg Magnesium Hydroxide (Magnesium Hydroxide Susp 30 Ml Udc) 30 ml PO DAILY PRN PRN Reason: Constipation Stop: 08/23/23 21:12 Sodium Chloride (Sodium Chloride 0.65% Na Soln 45 Ml ([place])) 1 - 2 sprays NA PRN PRN PRN Reason: Nasal Dryness/Congestion Stop: 08/23/23 21:12 Trazodone HCl (Trazodone Hcl 100 Mg Tab) 100 mg PO HS [facility] Stop: 09/01/23 21:59 Last Admin: 08/02/23 21:28 Dose: 100 mg Trazodone HCl (Trazodone Hcl 50 Mg Tab) 50 mg PO HS PRN PRN Reason: if not asleep within 1 hour of initial dose Stop: 09/01/23 21:59 Mental Health & Subst Abuse Tx Psychiatrist Name of Psychiatrist: [facility] Date Of Appointment With Psychiatric Provider: 09/05/2022 Time of Appointment with Psychiatrist: 10:30am Psychiatric Appointment Comment: [address], [place] [id number] Therapist Name of Therapist: Josephine Priest [facility] Discharge Appointments Primary Care Physician Name Of Family Doctor/PCP: Jason Deluca DO at [facility] Date of Future Appointment with PCP: 07/04/23 Time of Appointment with PCP: 1:30pm Provider Appointment Comment: [place] [address] (1) Major depressive disorder, recurrent episode Major depression episode severity: severe Psychotic features: with psychotic features Qualified Code(s): F33.3 - Major depressive disorder, recurrent, severe with psychotic symptoms
[2023-08-03] MEDS: traZODone HCL 100 MG TAB PO SCH (21:21)
[2023-08-04] MEDS: LORazepam 1 MG TAB PO SCH ×3 (06:09→22:07)
[2023-08-04] MEDS: DULoxetine HCL 60 MG CAP PO SCH (08:39)
--- NOTE | 2023-08-04 09:27 | Psychiatric Progress Note ---
Date of Service August 04, 2023 Impression / Recommendations Impression 48 yo male with hx of anxiety and previous depression with worsening symptoms in past 2-4 weeks, hx of side effects to multiple SSRIs, Lexapro was most helpful but will not restart as caused hair loss and ?burning in arms. 08/04/2023: Again reports having slept very well last night. He says his "mood has been a little better". He now says that the "dark" (suicidal) thoughts have been somewhat less frequent, though no less severe. Reports no new or worse symptoms. Discussed mood stabilizer to augment antidepressant response. Risks and benefits of, and alternatives to, the use of aripiprazole (Abilify) for mood were reviewed. This discussion included but was not limited to issues known potentially to be associated with use of such medication, especially at high doses or with longer use, including sedation, weight gain, problems with glucose metabolism including Type II diabetes, problems with lipid metabolism, cardiac conduction problems, or rarely involuntary movements, parkinsonian symptoms, or even acute dystonia or life-threatening Neuroleptic Malignant Syndrome. Discussed the need for periodic monitoring of fasting glucose or Hemoglobin A1c and fasting lipid panel, which the patient declined, for baseline monitoring. The patient agreed to start a trial of aripiprazole. 08/03/2023: Slept much better last night after taking trazodone (with no repeat) and with no roommate. His affect continues to improve, but he reports ongoing suicidal thoughts. These have a ruminative or almost obsessive quality and he tells me that at times these thoughts are ego-dystonic but that the more he "c hews them over, the harder they are to shake". He really doesn't seem to have any other obsessive thoughts or any compulsive behaviors so I doubt this represents OCD. However, there certainly is a strong ruminative quality to what he describes. Discussed with pt that duloxetine is a good option for actual OCD and that the mood stabilizer olanzapine has been shown to reduce obsessive thoughts and might help reduce the intrusive and repetitive suicidal thoughts. He's really not interested in adding such a medication. 08/02/2023: Affect continues slowly to improve. He's attending most groups. Me latonin 6 mg taken last night appears to have been of no benefit for sleep. He reports finding himself very distracted by his roommate (who isn't objectively difficult-seeming) and unable to sleep with another person in the room. He's somewhat hesitant to use "a prescription for sleep". Reviewed the possibility of a mood stabilizer with sedating effects, which could also lead to faster mood response, but he was not comfortable with that option. Reviewed trazodone at some length, including rare risk of priapism. He'd like to try that. Has been tolerating duloxetine at a 60 mg dose without evidence of side effects. Will continue this dose. 08/01/2023: Humorously chides me for not yet having tried a local brand of bologna he'd recommended to me yesterday. Affect continues gradually to brigh ten. He attends groups but doesn't interact much with peers outside of them. He thinks his anxiety is under much better control but worries because improvement in depressed mood has been much less noticeable. He tells me he's "not really" having any suicidal thoughts and is pretty vague when I try to get him to be more specific about "not really". He asks about transfer to a facility where ECT could be an option based on a discussion about ECT after I'd completed my note yesterday. I reminded him that while ECT is probably the depression treatment with the fastest results, it still usually takes a couple of weeks to see benefit and that I'm pretty confident that his symptoms will respond to medication. Duloxetine dose has just been increased to 60 mg, at which dose he reports no side effects. Reports middle insomnia but doesn't want to take "one of those sleeping pills that make things weird". Discussed a trial of melatonin, which he has not used before. As he typically does, asks when he can be discharged to which I responded that despite his improvement I still didn't think it was safe for him to be discharged and that he was clearly benefiting from being in the hospital as evidenced by consistent if incremental improvement. 07/31/2023: Reviewed pt's suicide note (scanned into chart, q.v.) that was oddly cheerful and didn't address directly suicidality rather than alluding to it obliquely. It ended by encouraging to take a beach vacation. Presents as brighter, with occasional smile. Has been participating in groups fairly well. Still minimizes reasons for concern about suicide, since as far as he's concerned that was in the past. Discussed at some length plan of titrating duloxetine and whether to add a mood stabilizer such as aripiprazole. 07/30/2023: Guardedly reports feeling somewhat less awful. He says he slept better last night. He tolerated start of duloxetine 20 mg this morning, would like to proceed as planned with increase to 40 mg. Reviewed lab results showing moderate vitamin D deficiency and the need to treat this. Discussed again likely benefit and more rapid benefit with addition of a mood stabilizer, to which he remains opposed. : Profoundly depressed man who during an extended meeting with social work specialist and revealed broad extent of suicidality, e.g., carrying a rifle when he went for walks, scoping out the most appropriate place to shoot himself so his body would be found in time that his organs could be transplanted while minimizing distress to those who found his body; having written a suicide note that he locked in the gun safe so his wouldn't happen upon it and become distressed, but so it'd be ready for use when he needed it. Pt has been very anxious and says this is one of the reasons he's been contemplating suicide. Today reports feeling "wound up" since bupropion was started. Reviewed a broad range of options, including adding an SNRI to the bupropion. However, pt acknowledges a predisposition against using medication and doesn't think he'd continue a multi-drug regimen. Risks and benefits of, and alternatives to, the use of duloxetine (Cymbalta) for Major Depression and Generalized Anxiety Disorder symptoms were reviewed. This discussion included but was not limited to issues known potentially to be associated with use of such medication, especially at high doses or with longer use, including sedation, weight gain, GI side effects, or rarely elevated blood pressure or severe diaphoresis. Discussed the need to avoid abrupt cessation due to risk of discontinuation syndrome. The patient agreed to start a trial of duloxetine. 07/28/23: improving, tolerating Wellbutrin (1) Major depressive disorder, recurrent episode: (2) Generalized anxiety disorder: (3) Vitamin D deficiency: Plan 08/04/2023: * continue duloxetine 60 mg daily * continue lorazepam 1 mg Q8H (scheduled) * continue ergocalciferol 50,000 IU 2 x/wk * continue trazodone 100 mg QHS with repeat of 50 mg if not asleep within 1 hour * A private room is medically necessary for the safety of self and others. 08/03/2023: * continue duloxetine 60 mg daily * continue lorazepam 1 mg Q8H (scheduled) * continue ergocalciferol 50,000 IU 2 x/wk * continue trazodone 100 mg QHS with repeat of 50 mg if not asleep within 1 hour * A private room is medically necessary for the safety of self and others. 08/02/2023: * continue duloxetine 60 mg daily * continue lorazepam 1 mg Q8H (scheduled) * continue ergocalciferol 50,000 IU 2 x/wk * stop melatonin * trial trazodone 100 mg QHS with repeat of 50 mg if not asleep within 1 hour * A private room is medically necessary for the safety of self and others. 08/01/2023: * continue duloxetine 60 mg daily * continue lorazepam 1 mg Q8H (scheduled) * continue ergocalciferol 50,000 IU 2 x/wk * trial melatonin 6 mg QHS (scheduled) 07/31/2023: * increase duloxetine to 60 mg daily * continue ergocalciferol 50,000 IU 2 x/wk 07/30/2023: * increase duloxetine to 40 mg QAM, anticipate rapid titration to target of 60 mg daily * start ergocalciferol 50,000 IU 2 x/wk 07/29/2023: * stop bupropion XL - started 07/26/2023 at 75 mg, increased to 150 mg * start duloxetine 20 mg QAM, anticipate rapid titration to target of 60 mg daily * In addition to the screening labs ordered in the ED, will order vitamin B12 level, folic acid level, 25-OH vitamin D level, ESR to rule out conditions pertinent to psychiatric symptoms. 07/28/23: continue Wellbutrin SR 150 mg. Family meeting. 07/27/23: no evidence of activation on Wellbutrin. Obessive thoughts experiencing are typical of what he was experiencing at home. New disclosure re: past trauma exposure and act of furtherance. 07/26/23: Risks/benefits/alternatives reviewed re: antidepressants for the treatment of depression and/or anxiety. The patient agreed to a trial of Wellbutrin 75 mg this afternoon then 150 mg SR qam with plan to shift to XL if sleep remains OK. 07/25/23: The patient was admitted to the [facility] ([facility]) on q15 min checks (behavioral with suicide precautions) for safety. The patient will participate in group, recreational, and milieu therapies and will be offered additional individual and family sessions as clinically appropriate. Discussed possible trial of an SNRI. Inventory Assets Strengths: verbal, utilizes family supports Needs: improve coping skills, safety plan around weapons Suicide Risk Level Suicide Risk Level: Moderate (q15 min suicide checks) Risk Factors Assessment Male: Yes : Yes Do You Have Access To A Gun?: Yes ( to secure) Health Problems: No Mental Health Diagnoses: Yes Substance Use Disorders: No Previous Attempt: No Family History of Suicide: Yes Previous Psychiatric Hospitalization: No Hopelessness: Yes Protective Factors Assessment Judaism Beliefs: Yes : Yes Employed: Yes Stable Relationships: Yes Supportive Family: Yes Interval History Identifying Information DALIA MEJIAS is a 48-year-old M who currently lives in [place], has no prior inpatient hospitalizations, and was admitted on 07/24/23 21:13 on a 201 vo luntary commitment for SI with plan. Chief Complaint "Mood's a little better". Review of Systems Sleep Information Total Hours of Sleep: 7 Meal Information Percent Meal Consumed - Breakfast: 100 Percent Meal Consumed - Lunch: 100 Percent Meal Consumed - Dinner: 100 Subjective Subjective The patient was seen and assessed and interval progress reviewed in a multidisciplinary team meeting with the treatment team. For details, see the "Impression" section. Overall I spent a total of 52 minutes for this inpatient follow-up including review of test results, direct evaluation of the patient [id number], counseling the patient, reconciling and ordering medication, medication education with the patient, risk assessment, discussion during interdisciplinary treatment rounds, and documentation in the electronic health record. Physical Exam Psychiatric Orientation: alert, oriented to person, oriented to place, oriented to time and cooperative Apperance: appropriately dressed and appropriately groomed Eye Contact: good eye contact and + fair eye contact Motor Behavior: no abnormal motor movements Speech: normal rate/rhythm/volume of speech Affect: + depressed affect and + constricted affect Mood: + depressed mood and + anxious mood Thought Process: goal directed thought process Thought Content: reality based without delusions Suicidal Thoughts: denies suicidal plan (on unit) and denies suicidal intent; + reports suicidal thoughts Homicidal Thoughts: denies homicidal thoughts Hallucinations: no auditory hallucinations and no visual hallucinations Cognition: attention grossly intact and language grossly intact Estimated Intelligence: consistent with education level Insight: + limited insight Judgment: + limited judgement Vital Signs (Past 24 Hours) Last Vital Signs Temp 36 C L 08/04/23 06:00 Pulse 93 H 08/04/23 06:24 Resp 16 08/04/23 06:00 BP 94/58 L 08/04/23 06:24 Pulse Ox 97 07/31/23 06:41 O2 Del Method Room Air 07/31/23 06:41 Results & Data ([facility]) Current Inpatient Medications Current Inpatient Medications: Current Inpatient Medications Acetaminophen (Acetaminophen 325 Mg Tab) 650 mg PO Q4H PRN PRN Reason: Headache or Minor Fever Stop: 08/23/23 21:12 Al Hydrox/Mg Hydrox/Simethicone (Aluminum/Magnesium Susp 30 Ml Udc) 30 ml PO Q4H PRN PRN Reason: GI Upset Stop: 08/23/23 21:12 Bismuth Subsalicylate (Bismuth Subsalicylate Liqd 236 Ml) 15 ml PO PRN PRN PRN Reason: Loose Stool Stop: 08/23/23 21:12 Duloxetine HCl (Duloxetine Hcl 60 Mg Cap) 60 mg PO QAM COUNT INCLUDES THE [facility] Stop: 09/01/23 08:59 Last Admin: 08/04/23 08:39 Dose: 60 mg Ergocalciferol (Ergocalciferol 50,000 Units 1250 Mcg Cap) 50,000 units PO SuWe@1400 COUNT INCLUDES THE [facility] Stop: 08/29/23 13:59 Last Admin: 08/02/23 13:00 Dose: 50,000 units Hydroxyzine HCl (Hydroxyzine Hcl 25 Mg Tab) 50 mg PO HSZ PRN PRN Reason: Insomnia Stop: 08/23/23 21:12 Last Admin: 07/30/23 21:51 Dose: 50 mg Hydroxyzine HCl (Hydroxyzine Hcl 25 Mg Tab) 25 mg PO Q4H PRN PRN Reason: Anxiety Stop: 08/23/23 21:12 Lorazepam (Lorazepam 1 Mg Tab) 1 mg PO BID PRN PRN Reason: Anxiety/Insomnia Stop: 08/23/23 21:23 Last Admin: 07/30/23 09:04 Dose: 1 mg Lorazepam (Lorazepam 1 Mg Tab) 1 mg PO Q8 JOSELYN Stop: 08/29/23 13:59 Last Admin: 08/04/23 06:09 Dose: 1 mg Magnesium Hydroxide (Magnesium Hydroxide Susp 30 Ml Udc) 30 ml PO DAILY PRN PRN Reason: Constipation Stop: 08/23/23 21:12 Sodium Chloride (Sodium Chloride 0.65% Na Soln 45 Ml (Price)) 1 - 2 sprays NA PRN PRN PRN Reason: Nasal Dryness/Congestion Stop: 08/23/23 21:12 Trazodone HCl (Trazodone Hcl 100 Mg Tab) 100 mg PO HS JOSELYN Stop: 09/01/23 21:59 Last Admin: 08/03/23 21:21 Dose: 100 mg Trazodone HCl (Trazodone Hcl 50 Mg Tab) 50 mg PO HS PRN PRN Reason: if not asleep within 1 hour of initial dose Stop: 09/01/23 21:59 Mental Health & Subst Abuse Tx Psychiatrist Name of Psychiatrist: [facility] Date Of Appointment With Psychiatric Provider: 09/05/2022 Time of Appointment with Psychiatrist: 10:30am Psychiatric Appointment Comment[facility] [address] [place] [address] Therapist Name of Therapist: Josephine Priest [facility] Appointments Primary Care Physician Name Of Family Doctor/PCP: Jason Deluca DO at [facility] Date of Future Appointment with PCP: 08/10/23 Time of Appointment with PCP: 1:15pm Provider Appointment Comment: [place] [id number] (1) Major depressive disorder, recurrent episode Major depression episode severity: severe Psychotic features: with psychotic features Qualified Code(s): F33.3 - Major depressive disorder, recurrent, severe with psychotic symptoms
[2023-08-04] MEDS: LORazepam 1 MG TAB PO PRN (14:44)
[2023-08-04] MEDS: traZODone HCL 100 MG TAB PO SCH (22:11)
[2023-08-05] MEDS: LORazepam 1 MG TAB PO SCH ×3 (06:15→21:54)
[2023-08-05] MEDS: ARIPiprazole 5 MG TAB PO SCH (08:47)
[2023-08-05] MEDS: DULoxetine HCL 60 MG CAP PO SCH (08:47)
--- NOTE | 2023-08-05 15:32 | Psychiatric Progress Note ---
Date of Service August 05, 2023 Impression / Recommendations Impression 48 yo male with hx of anxiety and previous depression with worsening symptoms in past 2-4 weeks, hx of side effects to multiple SSRIs, Lexapro was most helpful but will not restart as caused hair loss and ?burning in arms. 08/05/2023: Continues to sleep well using 100 mg trazodone. "Morning went great". However, starting in the afternoon he started to feel more "foggy", less energetic, more depressed. He can't identify any precipitant. Pt also notes some subtle "double vision". This was not apparent this morning. The only clear change today is the first dose of aripiprazole this morning. No other things that seem as if they might be a side effect. More perseverative, hyperviscous today. 08/04/2023: Again reports having slept very well last night. He says his "mood has been a little better". He now says that the "dark" (suicidal) thoughts have been somewhat less frequent, though no less severe. Reports no new or worse symptoms. Discussed mood stabilizer to augment antidepressant response. Risks and benefits of, and alternatives to, the use of aripiprazole (Abilify) for mood were reviewed. This discussion included but was not limited to issues known potentially to be associated with use of such medication, especially at high doses or with longer use, including sedation, weight gain, problems with glucose metabolism including Type II diabetes, problems with lipid metabolism, cardiac conduction problems, or rarely involuntary movements, parkinsonian symptoms, or even acute dystonia or life-threatening Neuroleptic Malignant Syndrome. Discussed the need for periodic monitoring of fasting glucose or Hemoglobin A1c and fasting lipid panel, which the patient declined, for baseline monitoring. The patient agreed to start a trial of aripiprazole. 08/03/2023: Slept much better last night after taking trazodone (with no repeat) and with no roommate. His affect continues to improve, but he reports ongoing suicidal thoughts. These have a ruminative or almost obsessive quality and he tells me that at times these thoughts are ego-dystonic but that the more he "chews them over, the harder they are to shake". He really doesn't seem to have any other obsessive thoughts or any compulsive behaviors so I doubt this represents OCD. However, there certainly is a strong ruminative quality to what he describes. Discussed with pt that duloxetine is a good option for actual OCD and that the mood stabilizer olanzapine has been shown to reduce obsessive thoughts and might help reduce the intrusive and repetitive suicidal thoughts. He's really not interested in adding such a medication. 08/02/2023: Affect continues slowly to improve. He's attending most groups. Melatonin 6 mg taken last night appears to have been of no benefit for sleep. He reports finding himself very distracted by his roommate (who isn't objectively difficult-seeming) and unable to sleep with another person in the room. He's somewhat hesitant to use "a prescription for sleep". Reviewed the possibility of a mood stabilizer with sedating effects, which could also lead to faster mood response, but he was not comfortable with that option. Reviewed trazodone at some length, including rare risk of priapism. He'd like to try that. Has been tolerating duloxetine at a 60 mg dose without evidence of side effects. Will continue this dose. 08/01/2023: Humorously chides me for not yet having tried a local brand of stacy ogna he'd recommended to me yesterday. Affect continues gradually to brighten. He attends groups but doesn't interact much with peers outside of them. He thinks his anxiety is under much better control but worries because improvement in depressed mood has been much less noticeable. He tells me he's "not really" having any suicidal thoughts and is pretty vague when I try to get him to be more specific about "not really". He asks about transfer to a facility where ECT could be an option based on a discussion about ECT after I'd completed my note yesterday. I reminded him that while ECT is probably the depression treatment with the fastest results, it still usually takes a couple of weeks to see benefit and that I'm pretty confident that his symptoms will respond to medication. Duloxetine dose has just been increased to 60 mg, at which dose he reports no side effects. Reports middle insomnia but doesn't want to take "one of those sleeping pills that make things weird". Discussed a trial of melatonin, which he has not used before. As he typically does, asks when he can be discharged to which I responded that despite his improvement I still didn't think it was safe for him to be discharged and that he was clearly benefiting from being in the hospital as evidenced by consistent if incremental improvement. 07/31/2023: Reviewed pt's suicide note (scanned into chart, q.v.) that was oddly cheerful and didn't address directly suicidality rather than alluding to it obliquely. It ended by encouraging to take a beach vacation. Presents as brighter, with occasional smile. Has been participating in groups fairly well. Still minimizes reasons for concern about suicide, since as far as he's concerned that was in the past. Discussed at some length plan of titrating duloxetine and whether to add a mood stabilizer such as aripiprazole. 07/30/2023: Guardedly reports feeling somewhat less awful. He says he slept better last night. He tolerated start of duloxetine 20 mg this morning, would like to proceed as planned with increase to 40 mg. Reviewed lab results showing moderate vitamin D deficiency and the need to treat this. Discussed again likely benefit and more rapid benefit with addition of a mood stabilizer, to which he remains opposed. : Profoundly depressed man who during an extended meeting with social studies teacher and revealed broad extent of suicidality, e.g., carrying a rifle when he went for walks, scoping out the most appropriate place to shoot himself so his body would be found in time that his organs could be transplanted while minimizing distress to those who found his body; having written a suicide note that he locked in the gun safe so his wouldn't happen upon it and become distressed, but so it'd be ready for use when he needed it. Pt has been very anxious and says this is one of the reasons he's been contemplating suicide. Today reports feeling "wound up" since bupropion was started. Reviewed a broad range of options, including adding an SNRI to the bupropion. However, pt acknowledges a predisposition against using medication and doesn't think he'd continue a multi-drug regimen. Risks and benefits of, and alternatives to, the use of duloxetine (Cymbalta) for Major Depression and Generalized Anxiety Disorder symptoms were reviewed. This discussion included but was not limited to issues known potentially to be associated with use of such medication, especially at high doses or with longer use, including sedation, weight gain, GI side effects, or rarely elevated blood pressure or severe diaphoresis. Discussed the need to avoid abrupt cessation due to risk of discontinuation syndrome. The patient agreed to start a trial of duloxetine. 07/28/23: improving, tolerating Wellbutrin (1) Major depressive disorder, recurrent episode: (2) Generalized anxiety disorder: (3) Vitamin D deficiency: Plan 08/05/2023: * continue aripiprazole 5 mg QAM - started 08/04/2023 * continue duloxetine 60 mg daily * continue lorazepam 1 mg Q8H (scheduled) * continue ergocalciferol 50,000 IU 2 x/wk * continue trazodone 100 mg QHS with repeat of 50 mg if not asleep within 1 hour * A private room is medically necessary for the safety of self and others. 08/04/2023: * start aripiprazole 5 mg QAM * continue duloxetine 60 mg daily * continue lorazepam 1 mg Q8H (scheduled) * continue ergocalciferol 50,000 IU 2 x/wk * continue trazodone 100 mg QHS with repeat of 50 mg if not asleep within 1 hour * A private room is medically necessary for the safety of self and others. 08/03/2023: * continue duloxetine 60 mg daily * continue lorazepam 1 mg Q8H (scheduled) * continue ergocalciferol 50,000 IU 2 x/wk * continue trazodone 100 mg QHS with repeat of 50 mg if not asleep within 1 hour * A private room is medically necessary for the safety of self and others. 08/02/2023: * continue duloxetine 60 mg daily * continue lorazepam 1 mg Q8H (scheduled) * continue ergocalciferol 50,000 IU 2 x/wk * stop melatonin * trial trazodone 100 mg QHS with repeat of 50 mg if not asleep within 1 hour * A private room is medically necessary for the safety of self and others. 08/01/2023: * continue duloxetine 60 mg daily * continue lorazepam 1 mg Q8H (scheduled) * continue ergocalciferol 50,000 IU 2 x/wk * trial melatonin 6 mg QHS (scheduled) 07/31/2023: * increase duloxetine to 60 mg daily * continue ergocalciferol 50,000 IU 2 x/wk 07/30/2023: * increase duloxetine to 40 mg QAM, anticipate rapid titration to target of 60 mg daily * start ergocalciferol 50,000 IU 2 x/wk 07/29/2023: * stop bupropion XL - started 07/26/2023 at 75 mg, increased to 150 mg * start duloxetine 20 mg QAM, anticipate rapid titration to target of 60 mg daily * In addition to the screening labs ordered in the ED, will order vitamin B12 level, folic acid level, 25-OH vitamin D level, ESR to rule out conditions pertinent to psychiatric symptoms. 07/28/23: continue Wellbutrin SR 150 mg. Family meeting. 07/27/23: no evidence of activation on Wellbutrin. Obessive thoughts experiencing are typical of what he was experiencing at home. New disclosure re: past trauma exposure and act of furtherance. 07/26/23: Risks/benefits/alternatives reviewed re: antidepressants for the treatment of depression and/or anxiety. The patient agreed to a trial of Wellbutrin 75 mg this afternoon then 150 mg SR qam with plan to shift to XL if sleep remains OK. 07/25/23: The patient was admitted to the [facility] ([facility]) on q15 min checks (behavioral with suicide precautions) for safety. The patient will participate in group, recreational, and milieu therapies and will be offered additional individual and family sessions as clinically appropriate. Discussed possible trial of an SNRI. Inventory Assets Strengths: verbal, utilizes family supports Needs: improve coping skills, safety plan around weapons Suicide Risk Level Suicide Risk Level: Moderate (q15 min suicide checks) Risk Factors Assessment Male: Yes : Yes Do You Have Access To A Gun?: Yes ( to secure) Health Problems: No Mental Health Diagnoses: Yes Substance Use Disorders: No Previous Attempt: No Family History of Suicide: Yes Previous Psychiatric Hospitalization: No Hopelessness: Yes Protective Factors Assessment Muslim Beliefs: Yes : Yes Employed: Yes Stable Relationships: Yes Supportive Family: Yes Interval History Identifying Information DALIA MEJIAS is a 48-year-old M who currently lives in [place], has no prior inpatient hospitalizations, and was admitted on 07/24/23 21:13 on a 201 voluntary commitment for SI with plan. Chief Complaint "Not so good today". Review of Systems Sleep Information Total Hours of Sleep: 6.75 Meal Information Percent Meal Consumed - Breakfast: 100 Percent Meal Consumed - Lunch: 100 Percent Meal Consumed - Dinner: 100 Subjective Subjective The patient was seen and assessed and interval progress reviewed in a multidisciplinary team meeting with the treatment team. For details, see the "Impression" section. Overall I spent a total of 40 minutes for this inpatient follow-up including review of chart records, review of test results, direct evaluation of the patient [id number], counseling the patient, medication education with the patient, risk assessment, discussion during interdisciplinary treatment rounds, and documentation in the electronic health record. Physical Exam Psychiatric Orientation: alert, oriented to person, oriented to place, oriented to time and cooperative Apperance: appropriately dressed and appropriately groomed Eye Contact: good eye contact Motor Behavior: no abnormal motor movements Speech: normal rate/rhythm/volume of speech Affect: euthymic affect Mood: + depressed mood and + anxious mood Thought Process: goal directed thought process Thought Content: reality based without delusions Suicidal Thoughts: denies suicidal plan (on unit) and denies suicidal intent; + reports suicidal thoughts Homicidal Thoughts: denies homicidal thoughts Hallucinations: no auditory hallucinations and no visual hallucinations Cognition: attention grossly intact and language grossly intact Estimated Intelligence: consistent with education level Insight: + limited insight Judgment: + limited judgement Vital Signs (Past 24 Hours) Last Vital Signs Temp 36.0 C L 08/05/23 06:34 Pulse 98 H 08/05/23 06:39 Resp 16 08/05/23 06:34 BP 106/69 08/05/23 06:39 Pulse Ox 97 07/31/23 06:41 O2 Del Method Room Air 07/31/23 06:41 Results & Data ([facility]) Current Inpatient Medications Current Inpatient Medications: Current Inpatient Medications Acetaminophen (Acetaminophen 325 Mg Tab) 650 mg PO Q4H PRN PRN Reason: Headache or Minor Fever Stop: 08/23/23 21:12 Al Hydrox/Mg Hydrox/Simethicone (Aluminum/Magnesium Susp 30 Ml Udc) 30 ml PO Q4H PRN PRN Reason: GI Upset Stop: 08/23/23 21:12 Aripiprazole (Aripiprazole 5 Mg Tab) 5 mg PO QAM JOSELYN Stop: 09/04/23 08:59 Last Admin: 08/05/23 08:47 Dose: 5 mg Bismuth Subsalicylate (Bismuth Subsalicylate Liqd 236 Ml) 15 ml PO PRN PRN PRN Reason: Loose Stool Stop: 08/23/23 21:12 Duloxetine HCl (Duloxetine Hcl 60 Mg Cap) 60 mg PO QAM [facility] Stop: 09/01/23 08:59 Last Admin: 08/05/23 08:47 Dose: 60 mg Ergocalciferol (Ergocalciferol 50,000 Units 1250 Mcg Cap) 50,000 units PO SuWe@1400 [facility] Stop: 08/29/23 13:59 Last Admin: 08/02/23 13:00 Dose: 50,000 units Hydroxyzine HCl (Hydroxyzine Hcl 25 Mg Tab) 50 mg PO HSZ PRN PRN Reason: Insomnia Stop: 08/23/23 21:12 Last Admin: 07/30/23 21:51 Dose: 50 mg Hydroxyzine HCl (Hydroxyzine Hcl 25 Mg Tab) 25 mg PO Q4H PRN PRN Reason: Anxiety Stop: 08/23/23 21:12 Lorazepam (Lorazepam 1 Mg Tab) 1 mg PO BID PRN PRN Reason: Anxiety/Insomnia Stop: 08/23/23 21:23 Last Admin: 07/30/23 09:04 Dose: 1 mg Lorazepam (Lorazepam 1 Mg Tab) 1 mg PO Q8 [facility] Stop: 08/29/23 13:59 Last Admin: 08/05/23 14:47 Dose: 1 mg Magnesium Hydroxide (Magnesium Hydroxide Susp 30 Ml Udc) 30 ml PO DAILY PRN PRN Reason: Constipation Stop: 08/23/23 21:12 Sodium Chloride (Sodium Chloride 0.65% Na Soln 45 Ml ([place])) 1 - 2 sprays NA PRN PRN PRN Reason: Nasal Dryness/Congestion Stop: 08/23/23 21:12 Trazodone HCl (Trazodone Hcl 100 Mg Tab) 100 mg PO HS [facility] Stop: 09/01/23 21:59 Last Admin: 08/04/23 22:11 Dose: 100 mg Trazodone HCl (Trazodone Hcl 50 Mg Tab) 50 mg PO HS PRN PRN Reason: if not asleep within 1 hour of initial dose Stop: 09/01/23 21:59 Mental Health & Subst Abuse Tx Psychiatrist Name of Psychiatrist: [facility] Date Of Appointment With Psychiatric Provider: 09/05/2022 Time of Appointment with Psychiatrist: 10:30am Psychiatric Appointment Comment: [address] [place] [address] Therapist Name of Therapist: Josephine Priest [facility] Appointments Primary Care Physician Name Of Family Doctor/PCP: Jason Deluca DO at [facility] Date of Future Appointment with PCP: 08/10/23 Time of Appointment with PCP: 1:15pm Provider Appointment Comment: Hayden Styles, [place] [phone] (1) Major depressive disorder, recurrent episode Major depression episode severity: severe Psychotic features: with psychotic features Qualified Code(s): F33.3 - Major depressive disorder, recurrent, severe with psychotic symptoms
[2023-08-05] MEDS: traZODone HCL 100 MG TAB PO SCH (21:55)
[2023-08-06] MEDS: LORazepam 1 MG TAB PO SCH ×3 (06:24→22:03)
[2023-08-06] MEDS: DULoxetine HCL 60 MG CAP PO SCH (08:58)
[2023-08-06] MEDS: ARIPiprazole 5 MG TAB PO SCH (08:59)
--- NOTE | 2023-08-06 12:18 | Psychiatric Progress Note ---
Date of Service August 06, 2023 Impression / Recommendations Impression 48 yo male with hx of anxiety and previous depression with worsening symptoms in past 2-4 weeks, hx of side effects to multiple SSRIs, Lexapro was most helpful but will not restart as caused hair loss and ?burning in arms. 08/06/2023: Reports middle awakenings last night with suicidal ruminations. Somewhat less negative and perseverative today but is worried that the cognitive tools he's been using to good effect haven't been as useful for his current symptoms. Chronology suggests that addition of aripiprazole may be a factor. Reviewed alternative cognitive interventions at some length. 08/05/2023: Continues to sleep well using 100 mg trazodone. "Morning went great". However, starting in the afternoon he started to feel more "foggy", less energetic, more depressed. He can't identify any precipitant. Pt also notes some subtle "double vision". This was not apparent this morning. The only clear change today is the first dose of aripiprazole this morning. No other things that seem as if they might be a side effect. More perseverative, hyperviscous today. 08/04/2023: Again reports having slept very well last night. He says his "mood has been a little better". He now says that the "dark" (suicidal) thoughts have been somewhat less frequent, though no less severe. Reports no new or worse symptoms. Discussed mood stabilizer to augment antidepressant response. Risks and benefits of, and alternatives to, the use of aripiprazole (Abilify) for mood were reviewed. This discussion included but was not limited to issues known potentially to be associated with use of such medication, especially at high doses or with longer use, including sedation, weight gain, problems with glucose metabolism including Type II diabetes, problems with lipid metabolism, cardiac conduction problems, or rarely involuntary movements, parkinsonian symptoms, or even acute dystonia or life-threatening Neuroleptic Malignant Syndrome. Discussed the need for periodic monitoring of fasting glucose or Hemoglobin A1c and fasting lipid panel, which the patient declined, for baseline monitoring. The patient agreed to start a trial of aripiprazole. 08/03/2023: Slept much better last night after taking trazodone (with no repeat) and with no roommate. His affect continues to improve, but he reports ongoing suicidal thoughts. These have a ruminative or almost obsessive quality and he tells me that at times these thoughts are ego-dystonic but that the more he "chews them over, the harder they are to shake". He really doesn't seem to have any other obsessive thoughts or any compulsive behaviors so I doubt this rep resents OCD. However, there certainly is a strong ruminative quality to what he describes. Discussed with pt that duloxetine is a good option for actual OCD and that the mood stabilizer olanzapine has been shown to reduce obsessive thoughts and might help reduce the intrusive and repetitive suicidal thoughts. He's really not interested in adding such a medication. 08/02/2023: Affect continues slowly to improve. He's attending most groups. Melatonin 6 mg taken last night appears to have been of no benefit for sleep. He reports finding himself very distracted by his roommate (who isn't objectively difficult-seeming) and unable to sleep with another person in the room. He's somewhat hesitant to use "a prescription for sleep". Reviewed the possibility of a mood stabilizer with sedating effects, which could also lead to faster mood response, but he was not comfortable with that option. Reviewed trazodone at some length, including rare risk of priapism. He'd like to try that. Has been tolerating duloxetine at a 60 mg dose without evidence of side effects. Will continue this dose. 08/01/2023: Humorously chides me for not yet having tried a local brand of bologna he'd recommended to me yesterday. Affect continues gradually to brighten. He attends groups but doesn't interact much with peers outside of them. He thinks his anxiety is under much better control but worries because improvement in depressed mood has been much less noticeable. He tells me he's "not really" having any suicidal thoughts and is pretty vague when I try to get him to be more specific about "not really". He asks about transfer to a facility where ECT could be an option based on a discussion about ECT after I'd completed my note yesterday. I reminded him that while ECT is probably the depression treatment with the fastest results, it still usually takes a couple of weeks to see benefit and that I'm pretty confident that his symptoms will respond to medication. Duloxetine dose has just been increased to 60 mg, at which dose he reports no side effects. Reports middle insomnia but doesn't want to take "one of those sleeping pills that make things weird". Discussed a trial of melatonin, which he has not used before. As he typically does, asks when he can be discharged to which I responded that despite his improvement I still didn't think it was safe for him to be discharged and that he was clearly benefiting from being in the hospital as evidenced by consistent if incremental improvement. 07/31/2023: Reviewed pt's suicide note (scanned into chart, q.v.) that was oddly cheerful and didn't address directly suicidality rather than alluding to it obliquely. It ended by encouraging to take a beach vacation. Presents as brighter, with occasional smile. Has been participating in groups fairly well. Still minimizes reasons for concern about suicide, since as far as he's concerned that was in the past. Discussed at some length plan of titrating duloxetine and whether to add a mood stabilizer such as aripiprazole. 07/30/2023: Guardedly reports feeling somewhat less awful. He says he slept better last night. He tolerated start of duloxetine 20 mg this morning, would like to proceed as planned with increase to 40 mg. Reviewed lab results showing moderate vitamin D deficiency and the need to treat this. Discussed again likely benefit and more rapid benefit with addition of a mood stabilizer, to which he remains opposed. : Profoundly depressed man who during an extended meeting with social and political studies professor and revealed broad extent of suicidality, e.g., carrying a rifle whe n he went for walks, scoping out the most appropriate place to shoot himself so his body would be found in time that his organs could be transplanted while minimizing distress to those who found his body; having written a suicide note that he locked in the gun safe so his wouldn't happen upon it and become distressed, but so it'd be ready for use when he needed it. Pt has been very anxious and says this is one of the reasons he's been contemplating suicide. Today reports feeling "wound up" since bupropion was started. Reviewed a broad range of options, including adding an SNRI to the bupropion. However, pt acknowledges a predisposition against using medication and doesn't think he'd continue a multi-drug regimen. Risks and benefits of, and alternatives to, the use of duloxetine (Cymbalta) for Major Depression and Generalized Anxiety Disorder symptoms were reviewed. This discussion included but was not limited to issues known potentially to be associated with use of such medication, especially at high doses or with longer use, including sedation, weight gain, GI side effects, or rarely elevated blood pressure or severe diaphoresis. Discussed the need to avoid abrupt cessation due to risk of discontinuation syndrome. The patient agreed to start a trial of duloxetine. 07/28/23: improving, tolerating Wellbutrin (1) Major depressive disorder, recurrent episode: (2) Generalized anxiety disorder: (3) Vitamin D deficiency: Plan 08/06/2023: * stop aripiprazole 5 mg QAM - started 08/04/2023 * continue duloxetine 60 mg daily * continue lorazepam 1 mg Q8H (scheduled) * continue ergocalciferol 50,000 IU 2 x/wk * increase trazodone to 150 mg QHS with repeat of 50 mg if not asleep within 1 hour * A private room is medically necessary for the safety of self and others. 08/05/2023: * continue aripiprazole 5 mg QAM - started 08/04/2023 * continue duloxetine 60 mg daily * continue lorazepam 1 mg Q8H (scheduled) * continue ergocalciferol 50,000 IU 2 x/wk * continue trazodone 100 mg QHS with repeat of 50 mg if not asleep within 1 hour * A private room is medically necessary for the safety of self and others. 08/04/2023: * start aripiprazole 5 mg QAM * continue duloxetine 60 mg daily * continue lorazepam 1 mg Q8H (scheduled) * continue ergocalciferol 50,000 IU 2 x/wk * continue trazodone 100 mg QHS with repeat of 50 mg if not asleep within 1 hour * A private room is medically necessary for the safety of self and others. 08/03/2023: * continue duloxetine 60 mg daily * continue lorazepam 1 mg Q8H (scheduled) * continue ergocalciferol 50,000 IU 2 x/wk * continue trazodone 100 mg QHS with repeat of 50 mg if not asleep within 1 hour * A private room is medically necessary for the safety of self and others. 08/02/2023: * continue duloxetine 60 mg daily * continue lorazepam 1 mg Q8H (scheduled) * continue ergocalciferol 50,000 IU 2 x/wk * stop melatonin * trial trazodone 100 mg QHS with repeat of 50 mg if not asleep within 1 hour * A private room is medically necessary for the safety of self and others. 08/01/2023: * continue duloxetine 60 mg daily * continue lorazepam 1 mg Q8H (scheduled) * continue ergocalciferol 50,000 IU 2 x/wk * trial melatonin 6 mg QHS (scheduled) 07/31/2023: * increase duloxetine to 60 mg daily * continue ergocalciferol 50,000 IU 2 x/wk 07/30/2023: * increase duloxetine to 40 mg QAM, anticipate rapid titration to target of 60 mg daily * start ergocalciferol 50,000 IU 2 x/wk 07/29/2023: * stop bupropion XL - started 07/26/2023 at 75 mg, increased to 150 mg * start duloxetine 20 mg QAM, anticipate rapid titration to target of 60 mg daily * In addition to the screening labs ordered in the ED, will order vitamin B12 level, folic acid level, 25-OH vitamin D level, ESR to rule out conditions pertinent to psychiatric symptoms. 07/28/23: continue Wellbutrin SR 150 mg. Family meeting. 07/27/23: no evidence of activation on Wellbutrin. Obessive thoughts experiencing are typical of what he was experiencing at home. New disclosure re: past trauma exposure and act of furtherance. 07/26/23: Risks/benefits/alternatives reviewed re: antidepressants for the treatment of depression and/or anxiety. The patient agreed to a trial of Wellbutrin 75 mg this afternoon then 150 mg SR qam with plan to shift to XL if sleep remains OK. 07/25/23: The patient was admitted to the [facility] ([facility] unit) on q15 min checks (behavioral with suicide precautions) for safety. The patient will participate in group, recreational, and milieu therapies and will be offered additional individual and family sessions as clinically appropriate. Discussed possible trial of an SNRI. Inventory Assets Strengths: verbal, utilizes family supports Needs: improve coping skills, safety plan around weapons Suicide Risk Level Suicide Risk Level: Moderate (q15 min suicide checks) Risk Factors Assessment Male: Yes : Yes Do You Have Access To A Gun?: Yes ( to secure) Health Problems: No Mental Health Diagnoses: Yes Substance Use Disorders: No Previous Attempt: No Family History of Suicide: Yes Previous Psychiatric Hospitalization: No Hopelessness: Yes Protective Factors Assessment Nondenominational Beliefs: Yes : Yes Employed: Yes Stable Relationships: Yes Supportive Family: Yes Interval History Identifying Information DALIA MEJIAS is a 48-year-old M who currently lives in [place], has no prior inpatient hospitalizations, and was admitted on 07/24/23 21:13 on a 201 voluntary commitment for SI with plan. Chief Complaint ""Not as bad as yesterday, but not that great".". Review of Systems Sleep Information Total Hours of Sleep: 6.75 Meal Information Percent Meal Consumed - Breakfast: 100 Percent Meal Consumed - Lunch: 100 Percent Meal Consumed - Dinner: 100 Subjective Subjective The patient was seen and assessed and interval progress reviewed in a multidisciplinary team meeting with the treatment team. For details, see the "Impression" section. Overall I spent a total of 68 minutes for this inpatient follow-up including review of chart records, direct evaluation of the patient [id number], counseling the patient, reconciling and ordering medication, medication education with the patient, risk assessment, discussion during interdisciplinary treatment rounds, and documentation in the electronic health record. Physical Exam Psychiatric Orientation: alert, oriented to person, oriented to place and oriented to time Apperance: appropriately dressed and appropriately groomed Eye Contact: good eye contact Motor Behavior: no abnormal motor movements Speech: normal rate/rhythm/volume of speech Affect: + depressed affect and + anxious affect Mood: + depressed mood and + anxious mood Thought Process: goal directed thought process Thought Content: reality based without delusions Suicidal Thoughts: denies suicidal plan (on unit) and denies suicidal intent; + reports suicidal thoughts Homicidal Thoughts: denies homicidal thoughts Hallucinations: no auditory hallucinations and no visual hallucinations Cognition: attention grossly intact and language grossly intact Estimated Intelligence: consistent with education level Insight: + limited insight Judgment: + limited judgement Vital Signs (Past 24 Hours) Last Vital Signs Temp 36.7 C 08/06/23 06:30 Pulse 94 H 08/06/23 06:30 Resp 16 08/06/23 06:30 BP 109/64 08/06/23 06:30 Pulse Ox 97 07/31/23 06:41 O2 Del Method Room Air 07/31/23 06:41 Results & Data ([facility]) Current Inpatient Medications Current Inpatient Medications: Current Inpatient Medications Acetaminophen (Acetaminophen 325 Mg Tab) 650 mg PO Q4H PRN PRN Reason: Headache or Minor Fever Stop: 08/23/23 21:12 Al Hydrox/Mg Hydrox/Simethicone (Aluminum/Magnesium Susp 30 Ml Udc) 30 ml PO Q4H PRN PRN Reason: GI Upset Stop: 08/23/23 21:12 Aripiprazole (Aripiprazole 5 Mg Tab) 5 mg PO QAM [facility] Stop: 09/04/23 08:59 Last Admin: 08/06/23 08:59 Dose: 5 mg Bismuth Subsalicylate (Bismuth Subsalicylate Liqd 236 Ml) 15 ml PO PRN PRN PRN Reason: Loose Stool Stop: 08/23/23 21:12 Duloxetine HCl (Duloxetine Hcl 60 Mg Cap) 60 mg PO QAM [facility] Stop: 09/01/23 08:59 Last Admin: 08/06/23 08:58 Dose: 60 mg Ergocalciferol (Ergocalciferol 50,000 Units 1250 Mcg Cap) 50,000 units PO SuWe@1400 [facility] Stop: 08/29/23 13:59 Last Admin: 08/02/23 13:00 Dose: 50,000 units Hydroxyzine HCl (Hydroxyzine Hcl 25 Mg Tab) 50 mg PO HSZ PRN PRN Reason: Insomnia Stop: 08/23/23 21:12 Last Admin: 07/30/23 21:51 Dose: 50 mg Hydroxyzine HCl (Hydroxyzine Hcl 25 Mg Tab) 25 mg PO Q4H PRN PRN Reason: Anxiety Stop: 08/23/23 21:12 Lorazepam (Lorazepam 1 Mg Tab) 1 mg PO BID PRN PRN Reason: Anxiety/Insomnia Stop: 08/23/23 21:23 Last Admin: 07/30/23 09:04 Dose: 1 mg Lorazepam (Lorazepam 1 Mg Tab) 1 mg PO Q8 [facility] Stop: 08/29/23 13:59 Last Admin: 08/06/23 06:24 Dose: 1 mg Magnesium Hydroxide (Magnesium Hydroxide Susp 30 Ml Udc) 30 ml PO DAILY PRN PRN Reason: Constipation Stop: 08/23/23 21:12 Sodium Chloride (Sodium Chloride 0.65% Na Soln 45 Ml ([place])) 1 - 2 sprays NA PRN PRN PRN Reason: Nasal Dryness/Congestion Stop: 08/23/23 21:12 Trazodone HCl (Trazodone Hcl 100 Mg Tab) 100 mg PO HS JOSELYN Stop: 09/01/23 21:59 Last Admin: 08/05/23 21:55 Dose: 100 mg Trazodone HCl (Trazodone Hcl 50 Mg Tab) 50 mg PO HS PRN PRN Reason: if not asleep within 1 hour of initial dose Stop: 09/01/23 21:59 Mental Health & Subst Abuse Tx Psychiatrist Name of Psychiatrist: [facility] Date Of Appointment With Psychiatric Provider: 09/05/2022 Time of Appointment with Psychiatrist: 10:30am Psychiatric Appointment Comment[address] [place] [address] Therapist Name of Therapist: Josephine Priest [facility] Appointments Primary Care Physician Name Of Family Doctor/PCP: Jason Deluca DO at [facility] Date of Future Appointment with PCP: 08/10/23 Time of Appointment with PCP: 1:15pm Provider Appointment Comment: [place] [id number] (1) Major depressive disorder, recurrent episode Major depression episode severity: severe Psychotic features: with psychotic features Qualified Code(s): F33.3 - Major depressive disorder, recurrent, severe with psychotic symptoms
[2023-08-06] MEDS: ERGOCALCIFEROL 50,000 UNITS 1250 MCG CAP PO SCH (14:11)
[2023-08-06] MEDS: traZODone HCL 50 MG TAB PO SCH (22:03)
[2023-08-07] MEDS: LORazepam 1 MG TAB PO PRN (06:31)
[2023-08-07] MEDS: LORazepam 1 MG TAB PO SCH ×3 (06:38→21:12)
[2023-08-07] MEDS: DULoxetine HCL 60 MG CAP PO SCH (08:40)
--- NOTE | 2023-08-07 15:34 | Psychiatric Progress Note ---
Date of Service August 07, 2023 Impression / Recommendations Impression 48 yo male with hx of anxiety and previous depression with worsening symptoms in past 2-4 weeks, hx of side effects to multiple SSRIs, Lexapro was most helpful but will not restart as caused hair loss and ?burning in arms. 08/07/2023: Reports he's "feeling a lot better today" than the last 2 days "maybe about like Monday". He slept well with 150 mg trazodone, had 1 middle awakening but was able to get back to sleep quickly after getting up to urinate. He's "feeling more confident about using the tools" he's learned in groups. Doesn't volunteer suicidal thoughts but when asked says they are still quite fr equent and "pretty intense". 08/06/2023: Reports middle awakenings last night with suicidal ruminations. Somewhat less negative and perseverative today but is worried that the cognitive tools he's been using to good effect haven't been as useful for his current symptoms. Chronology suggests that addition of aripiprazole may be a factor. Reviewed alternative cognitive interventions at some length. 08/05/2023: Continues to sleep well using 100 mg trazodone. "Morning went great". However, starting in the afternoon he started to feel more "foggy", less energetic, more depressed. He can't identify any precipitant. Pt also notes some subtle "double vision". This was not apparent this morning. The only clear change today is the first dose of aripiprazole this morning. No other things that seem as if they might be a side effect. More perseverative, hyperviscous today. 08/04/2023: Again reports having slept very well last night. He says his "mood has been a little better". He now says that the "dark" (suicidal) thoughts have been somewhat less frequent, though no less severe. Reports no new or worse symptoms. Discussed mood stabilizer to augment antidepressant response. Risks and benefits of, and alternatives to, the use of aripiprazole (Abilify) for mood were reviewed. This discussion included but was not limited to issues known potentially to be associated with use of such medication, especially at high doses or with longer use, including sedation, weight gain, problems with glucose metabolism including Type II diabetes, problems with lipid metabolism, cardiac conduction problems, or rarely involuntary movements, parkinsonian symptoms, or even acute dystonia or life-threatening Neuroleptic Malignant Syndrome. Discussed the need for periodic monitoring of fasting glucose or Hemoglobin A1c and fasting lipid panel, which the patient declined, for baseline monitoring. The patient agreed to start a trial of aripiprazole. 08/03/2023: Slept much better last night after taking trazodone (with no repeat) and with no roommate. His affect continues to improve, but he reports ongoing suicidal thoughts. These have a ruminative or almost obsessive quality and he tells me that at times these thoughts are ego-dystonic but that the more he "chews them over, the harder they are to shake". He really doesn't seem to have any other obsessive thoughts or any compulsive behaviors so I doubt this represents OCD. However, there certainly is a strong ruminative quality to what he describes. Discussed with pt that duloxetine is a good option for actual OCD and that the mood stabilizer olanzapine has been shown to reduce obsessive thoughts and might help reduce the intrusive and repetitive suicidal thoughts. He's really not interested in adding such a medication. 08/02/2023: Affect continues slowly to improve. He's attending most groups. Melatonin 6 mg taken last night appears to have been of no benefit for sleep. He reports finding himself very distracted by his roommate (who isn't objectively difficult-seeming) and unable to sleep with another person in the room. He's somewhat hesitant to use "a prescription for sleep". Reviewed the possibility of a mood stabilizer with sedating effects, which could also lead to faster mood response, but he was not comfortable with that option. Reviewed trazodone at some length, including rare risk of priapism. He'd like to try that. Has been tolerating duloxetine at a 60 mg dose without evidence of side effects. Will continue this dose. 08/01/2023: Humorously chides me for not yet having tried a local brand of bologna he'd recommended to me yesterday. Affect continues gradually to brighten. He attends groups but doesn't interact much with peers outside of them. He thinks his anxiety is under much better control but worries because improvement in depressed mood has been much less noticeable. He tells me he's "not really" having any suicidal thoughts and is pretty vague when I try to get him to be more specific about "not really". He asks about transfer to a facility where ECT could be an option based on a discussion about ECT after I'd completed my note yesterday. I reminded him that while ECT is probably the depression treatment with the fastest results, it still usually takes a couple of weeks to see benefit and that I'm pretty confident that his symptoms will respond to medication. Duloxetine dose has just been increased to 60 mg, at which dose he reports no side effects. Reports middle insomnia but doesn't want to take "one of those sleeping pills that make things weird". Discussed a trial of melatonin, which he has not used before. As he typically does, asks when he can be discharged to which I responded that despite his improvement I still didn't think it was safe for him to be discharged and that he was clearly benefiting from being in the hospital as evidenced by consistent if incremental improvement. 07/31/2023: Reviewed pt's suicide note (scanned into [employer] that was oddly cheerful and didn't address directly suicidality rather than alluding to it obliquely. It ended by encouraging to take a beach vacation. Presents as brighter, with occasional smile. Has been participating in groups fairly well. Still minimizes reasons for concern about suicide, since as far as he's concerned that was in the past. Discussed at some length plan of titrating duloxetine and whether to add a mood stabilizer such as aripiprazole. 07/30/2023: Guardedly reports feeling somewhat less awful. He says he slept better last night. He tolerated start of duloxetine 20 mg this morning, would like to proceed as planned with increase to 40 mg. Reviewed lab results showing moderate vitamin D deficiency and the need to treat this. Discussed again likely benefit and more rapid benefit with addition of a mood stabilizer, to which he remains opposed. : Profoundly depressed man who during an extended meeting with manager social work and revealed broad extent of suicidality, e.g., carrying a rifle when he went for walks, scoping out the most appropriate place to shoot himself so his body would be found in time that his organs could be transplanted while minimizing distress to those who found his body; having written a suicide note that he locked in the gun safe so his wouldn't happen upon it and become distressed, but so it'd be ready for use when he needed it. Pt has been very anxious and says this is one of the reasons he's been contemplating suicide. Today reports feeling "wound up" since bupropion was started. Reviewed a broad range of options, including adding an SNRI to the bupropion. However, pt acknowledges a predisposition against using medication and doesn't think he'd continue a multi-drug regimen. Risks and benefits of, and alternatives to, the use of duloxetine (Cymbalta) for Major Depression and Generalized Anxiety Disorder symptoms were reviewed. This discussion included but was not limited to issues known potentially to be associated with use of such medication, especially at high doses or with longer use, including sedation, weight gain, GI side effects, or rarely elevated blood pressure or severe diaphoresis. Discussed the need to avoid abrupt cessation due to risk of discontinuation syndrome. The patient agreed to start a trial of duloxetine. 07/28/23: improving, tolerating Wellbutrin (1) Major depressive disorder, recurrent episode: (2) Generalized anxiety disorder: (3) Vitamin D deficiency: Plan 08/06/2023: * continue duloxetine 60 mg daily * continue lorazepam 1 mg Q8H (scheduled) * continue ergocalciferol 50,000 IU 2 x/wk * continue trazodone 150 mg QHS with repeat of 50 mg if not asleep within 1 hour * A private room is medically necessary for the safety of self and others. 08/06/2023: * stop aripiprazole 5 mg QAM - started 08/04/2023 * continue duloxetine 60 mg daily * continue lorazepam 1 mg Q8H (scheduled) * continue ergocalciferol 50,000 IU 2 x/wk * increase trazodone to 150 mg QHS with repeat of 50 mg if not asleep within 1 hour * A private room is medically necessary for the safety of self and others. 08/05/2023: * continue aripiprazole 5 mg QAM - started 08/04/2023 * continue duloxetine 60 mg daily * continue lorazepam 1 mg Q8H (scheduled) * continue ergocalciferol 50,000 IU 2 x/wk * continue trazodone 100 mg QHS with repeat of 50 mg if not asleep within 1 hour * A private room is medically necessary for the safety of self and others. 08/04/2023: * start aripiprazole 5 mg QAM * continue duloxetine 60 mg daily * continue lorazepam 1 mg Q8H (scheduled) * continue ergocalciferol 50,000 IU 2 x/wk * continue trazodone 100 mg QHS with repeat of 50 mg if not asleep within 1 hour * A private room is medically necessary for the safety of self and others. 08/03/2023: * continue duloxetine 60 mg daily * continue lorazepam 1 mg Q8H (scheduled) * continue ergocalciferol 50,000 IU 2 x/wk * continue trazodone 100 mg QHS with repeat of 50 mg if not asleep within 1 hour * A private room is medically necessary for the safety of self and others. 08/02/2023: * continue duloxetine 60 mg daily * continue lorazepam 1 mg Q8H (scheduled) * continue ergocalciferol 50,000 IU 2 x/wk * stop melatonin * trial trazodone 100 mg QHS with repeat of 50 mg if not asleep within 1 hour * A private room is medically necessary for the safety of self and others. 08/01/2023: * continue duloxetine 60 mg daily * continue lorazepam 1 mg Q8H (scheduled) * continue ergocalciferol 50,000 IU 2 x/wk * trial melatonin 6 mg QHS (scheduled) 07/31/2023: * increase duloxetine to 60 mg daily * continue ergocalciferol 50,000 IU 2 x/wk 07/30/2023: * increase duloxetine to 40 mg QAM, anticipate rapid titration to target of 60 mg daily * start ergocalciferol 50,000 IU 2 x/wk 07/29/2023: * stop bupropion XL - started 07/26/2023 at 75 mg, increased to 150 mg * start duloxetine 20 mg QAM, anticipate rapid titration to target of 60 mg daily * In addition to the screening labs ordered in the ED, will order vitamin B12 level, folic acid level, 25-OH vitamin D level, ESR to rule out conditions pertinent to psychiatric symptoms. 07/28/23: continue Wellbutrin SR 150 mg. Family meeting. 07/27/23: no evidence of activation on Wellbutrin. Obessive thoughts experiencing are typical of what he was experiencing at home. New disclosure re: past trauma exposure and act of furtherance. 07/26/23: Risks/benefits/alternatives reviewed re: antidepressants for the treatment of depression and/or anxiety. The patient agreed to a trial of Wellbutrin 75 mg this afternoon then 150 mg SR qam with plan to shift to XL if sleep remains OK. 07/25/23: The patient was admitted to the [facility] ([facility] mental health unit) on q15 min checks (behavioral with suicide precautions) for safety. The patient will participate in group, recreational, and milieu therapies and will be offered additional individual and family sessions as clinically appropriate. Discussed possible trial of an SNRI. Inventory Assets Strengths: verbal, utilizes family supports Needs: improve coping skills, safety plan around weapons Suicide Risk Level Suicide Risk Level: Moderate (q15 min suicide checks) Risk Factors Assessment Male: Yes : Yes Do You Have Access To A Gun?: Yes ( to secure) Health Problems: No Mental Health Diagnoses: Yes Substance Use Disorders: No Previous Attempt: No Family History of Suicide: Yes Previous Psychiatric Hospitalization: No Hopelessness: Yes Protective Factors Assessment Congregation Beliefs: Yes : Yes Employed: Yes Stable Relationships: Yes Supportive Family: Yes Interval History Identifying Information DALIA MEJIAS is a 48-year-old M who currently lives in [place], has no prior inpatient hospitalizations, and was admitted on 07/24/23 21:13 on a 201 voluntary commitment for SI with plan. Chief Complaint "A lot better today". Review of Systems Sleep Information Total Hours of Sleep: 7 Meal Information Percent Meal Consumed - Breakfast: 100 Percent Meal Consumed - Lunch: 100 Percent Meal Consumed - Dinner: 100 Subjective Subjective The patient was seen and assessed and interval progress reviewed in a multidisciplinary team meeting with the treatment team. For details, see the "Impression" section. Overall I spent a total of 58 minutes for this inpatient follow-up including review of chart records, direct evaluation of the patient [id number], counseling the patient, reconciling and ordering medication, medication education with the patient, risk assessment, discussion during interdisciplinary treatment rounds, and documentation in the electronic health record. Physical Exam Psychiatric Orientation: alert, oriented x 3, oriented to person, oriented to place, oriented to time and cooperative Apperance: appropriately dressed and appropriately groomed Eye Contact: good eye contact and + fair eye contact Motor Behavior: no abnormal motor movements Speech: normal rate/rhythm/volume of speech Affect: euthymic affect, + depressed affect, + anxious affect and + constricted affect Mood: + depressed mood and + anxious mood Thought Process: goal directed thought process Thought Content: reality based without delusions Suicidal Thoughts: denies suicidal plan (on unit) and denies suicidal intent; + reports suicidal thoughts Homicidal Thoughts: denies homicidal thoughts Hallucinations: no auditory hallucinations and no visual hallucinations Cognition: attention grossly intact and language grossly intact Estimated Intelligence: consistent with education level Insight: + limited insight Judgment: + limited judgement Vital Signs (Past 24 Hours) Last Vital Signs Temp 36.5 C 08/07/23 06:33 Pulse 88 08/07/23 06:33 Resp 16 08/07/23 06:33 BP 94/59 L 08/07/23 06:33 Pulse Ox 97 07/31/23 06:41 O2 Del Method Room Air 07/31/23 06:41 Results & Data ([facility]) Current Inpatient Medications Current Inpatient Medications: Current Inpatient Medications Acetaminophen (Acetaminophen 325 Mg Tab) 650 mg PO Q4H PRN PRN Reason: Headache or Minor Fever Stop: 08/23/23 21:12 Al Hydrox/Mg Hydrox/Simethicone (Aluminum/Magnesium Susp 30 Ml Udc) 30 ml PO Q4H PRN PRN Reason: GI Upset Stop: 08/23/23 21:12 Bismuth Subsalicylate (Bismuth Subsalicylate Liqd 236 Ml) 15 ml PO PRN PRN PRN Reason: Loose Stool Stop: 08/23/23 21:12 Duloxetine HCl (Duloxetine Hcl 60 Mg Cap) 60 mg PO QAM [facility] Stop: 09/01/23 08:59 Last Admin: 08/07/23 08:40 Dose: 60 mg Ergocalciferol (Ergocalciferol 50,000 Units 1250 Mcg Cap) 50,000 units PO SuWe@1400 JOSELYN Stop: 08/29/23 13:59 Last Admin: 08/06/23 14:11 Dose: 50,000 units Hydroxyzine HCl (Hydroxyzine Hcl 25 Mg Tab) 50 mg PO HSZ PRN PRN Reason: Insomnia Stop: 08/23/23 21:12 Last Admin: 07/30/23 21:51 Dose: 50 mg Hydroxyzine HCl (Hydroxyzine Hcl 25 Mg Tab) 25 mg PO Q4H PRN PRN Reason: Anxiety Stop: 08/23/23 21:12 Lorazepam (Lorazepam 1 Mg Tab) 1 mg PO BID PRN PRN Reason: Anxiety/Insomnia Stop: 08/23/23 21:23 Last Admin: 07/30/23 09:04 Dose: 1 mg Lorazepam (Lorazepam 1 Mg Tab) 1 mg PO Q8 JOSELYN Stop: 08/29/23 13:59 Last Admin: 08/07/23 14:22 Dose: 1 mg Magnesium Hydroxide (Magnesium Hydroxide Susp 30 Ml Udc) 30 ml PO DAILY PRN PRN Reason: Constipation Stop: 08/23/23 21:12 Sodium Chloride (Sodium Chloride 0.65% Na Soln 45 Ml ([place])) 1 - 2 sprays NA PRN PRN PRN Reason: Nasal Dryness/Congestion Stop: 08/23/23 21:12 Trazodone HCl (Trazodone Hcl 50 Mg Tab) 50 mg PO HS PRN PRN Reason: if not asleep within 1 hour of initial dose Stop: 09/01/23 21:59 Trazodone HCl (Trazodone Hcl 50 Mg Tab) 150 mg PO HS JOSELYN Stop: 09/05/23 21:59 Last Admin: 08/06/23 22:03 Dose: 150 mg Mental Health & Subst Abuse Tx Psychiatrist Name of Psychiatrist: [facility] Date Of Appointment With Psychiatric Provider: 09/05/2022 Time of Appointment with Psychiatrist: 10:30am Psychiatric Appointment Comment: [address] [facility] [place] [id number] Therapist Name of Therapist: Josephine Priest [facility] Appointments Primary Care Physician Name Of Family Doctor/PCP: Jason Deluca DO at [facility] Date of Future Appointment with PCP: 08/10/23 Time of Appointment with PCP: 1:15pm Provider Appointment Comment: [place] [id number] (1) Major depressive disorder, recurrent episode Major depression episode severity: severe Psychotic features: with psychotic features Qualified Code(s): F33.3 - Major depressive disorder, recurrent, severe with psychotic symptoms
[2023-08-07] MEDS: traZODone HCL 50 MG TAB PO SCH (21:12)
[2023-08-08] MEDS: LORazepam 1 MG TAB PO SCH ×2 (06:13→14:08)
[2023-08-08] MEDS: DULoxetine HCL 60 MG CAP PO SCH (08:56)
--- NOTE | 2023-08-08 13:32 | Psychiatric Progress Note ---
Date of Service August 08, 2023 Impression / Recommendations Impression 48 yo male with hx of anxiety and previous depression with worsening symptoms in past 2-4 weeks, hx of side effects to multiple SSRIs, Lexapro was most helpful but will not restart as caused hair loss and ?burning in arms. 08/08/2023: Says he slept well again last night, again with 1 awakening. He notes "particularly dark thoughts for a while" but was able to get back to sleep. Continues to report improving mood, with corresponding improvement in affect. He has laughed spontaneously numerous times. Discussed some potential issues following discharge, including the TID lorazepam. I believe that continues to be an important part of his treatment but doubt he's likely to be able to take a midday dose consistently. He agreed. We discussed some options and decided to switch to clonazepam at an equipotent dose of 1.5 mg BID. 08/07/2023: Reports he's "feeling a lot better today" than the last 2 days "maybe about like Monday". He slept well with 150 mg trazodone, had 1 middle awakening but was able to get back to sleep quickly after getting up to urinate. He's "feeling more confident about using the tools" he's learned in groups. Doesn't volunteer suicidal thoughts but when asked says they are still quite frequent and "pretty intense". 08/06/2023: Reports middle awakenings last night with suicidal ruminations. Somewhat less negative and perseverative today but is worried that the cognitive tools he's been using to good effect haven't been as useful for his current symptoms. Chronology suggests that addition of aripiprazole may be a factor. Reviewed alternative cognitive interventions at some length. 08/05/2023: Continues to sleep well using 100 mg trazodone. "Morning went great". However, starting in the afternoon he started to feel more "foggy", less energetic, more depressed. He can't identify any precipitant. Pt also notes some subtle "double vision". This was not apparent this morning. The only clear change today is the first dose of aripiprazole this morning. No other things that seem as if they might be a side effect. More perseverative, hyperviscous today. 08/04/2023: Again reports having slept very well last night. He says his "mood has been a little better". He now says that the "dark" (suicidal) thoughts have been somewhat less frequent, though no less severe. Reports no new or worse symptoms. Discussed mood stabilizer to augment antidepressant response. Risks and benefits of, and alternatives to, the use of aripiprazole (Abilify) for mood were reviewed. This discussion included but was not limited to issues known potentially to be associated with use of such medication, especially at high doses or with longer use, including sedation, weight gain, problems with glucose metabolism including Type II diabetes, problems with lipid metabolism, cardiac conduction problems, or rarely involuntary movements, parkinsonian symptoms, or even acute dystonia or life-threatening Neuroleptic Malignant Syndrome. Discussed the need for periodic monitoring of fasting glucose or Hemoglobin A1c and fasting lipid panel, which the patient declined, for baseline monitoring. The patient agreed to start a trial of aripiprazole. 08/03/2023: Slept much better last night after taking trazodone (with no repeat) and with no roommate. His affect continues to improve, but he reports ongoing suicidal thoughts. These have a ruminative or almost obsessive quality and he tells me that at times these thoughts are ego-dystonic but that the more he "chews them over, the harder they are to shake". He really doesn't seem to have any other obsessive thoughts or any compulsive behaviors so I doubt this represents OCD. However, there certainly is a strong ruminative quality to what he describes. Discussed with pt that duloxetine is a good option for actual OCD and that the mood stabilizer olanzapine has been shown to reduce obsessive thoughts and might help reduce the intrusive and repetitive suicidal thoughts. He's really not interested in adding such a medication. 08/02/2023: Affect continues slowly to improve. He's attending most groups. Melatonin 6 mg taken last night appears to have been of no benefit for sleep. He reports finding himself very distracted by his roommate (who isn't objectively difficult-seeming) and unable to sleep with another person in the room. He's somewhat hesitant to use "a prescription for sleep". Reviewed the possibility of a mood stabilizer with sedating effects, which could also lead to faster mood response, but he was not comfortable with that option. Reviewed trazodone at some length, including rare risk of priapism. He'd like to try that. Has been tolerating duloxetine at a 60 mg dose without evidence of side effects. Will continue this dose. 08/01/2023: Humorously chides me for not yet having tried a local brand of stacy ogna he'd recommended to me yesterday. Affect continues gradually to brighten. He attends groups but doesn't interact much with peers outside of them. He thinks his anxiety is under much better control but worries because improvement in depressed mood has been much less noticeable. He tells me he's "not really" having any suicidal thoughts and is pretty vague when I try to get him to be more specific about "not really". He asks about transfer to a facility where ECT could be an option based on a discussion about ECT after I'd completed my note yesterday. I reminded him that while ECT is probably the depression treatment with the fastest results, it still usually takes a couple of weeks to see benefit and that I'm pretty confident that his symptoms will respond to medication. Duloxetine dose has just been increased to 60 mg, at which dose he reports no side effects. Reports middle insomnia but doesn't want to take "one of those sleeping pills that make things weird". Discussed a trial of melatonin, which he has not used before. As he typically does, asks when he can be discharged to which I responded that despite his improvement I still didn't think it was safe for him to be discharged and that he was clearly benefiting from being in the hospital as evidenced by consistent if incremental improvement. 07/31/2023: Reviewed pt's suicide note (scanned into chart, q.v.) that was oddly cheerful and didn't address directly suicidality rather than alluding to it obliquely. It ended by encouraging to take a beach vacation. Presents as brighter, with occasional smile. Has been participating in groups fairly well. Still minimizes reasons for concern about suicide, since as far as he's concerned that was in the past. Discussed at some length plan of titrating duloxetine and whether to add a mood stabilizer such as aripiprazole. 07/30/2023: Guardedly reports feeling somewhat less awful. He says he slept better last night. He tolerated start of duloxetine 20 mg this morning, would like to proceed as planned with increase to 40 mg. Reviewed lab results showing moderate vitamin D deficiency and the need to treat this. Discussed again likely benefit and more rapid benefit with addition of a mood stabilizer, to which he remains opposed. : Profoundly depressed man who during an extended meeting with social director and revealed broad extent of suicidality, e.g., carrying a rifle when he went for walks, scoping out the most appropriate place to shoot himself so his body would be found in time that his organs could be transplanted while minimizing distress to those who found his body; having written a suicide note that he locked in the gun safe so his wouldn't happen upon it and become distressed, but so it'd be ready for use when he needed it. Pt has been very anxious and says this is one of the reasons he's been contemplating suicide. Today reports feeling "wound up" since bupropion was started. Reviewed a broad range of options, including adding an SNRI to the bupropion. However, pt acknowledges a predisposition against using medication and doesn't think he'd continue a multi-drug regimen. Risks and benefits of, and alternatives to, the use of duloxetine (Cymbalta) for Major Depression and Generalized Anxiety Disorder symptoms were reviewed. This discussion included but was not limited to issues known potentially to be associated with use of such medication, especially at high doses or with longer use, including sedation, weight gain, GI side effects, or rarely elevated blood pressure or severe diaphoresis. Discussed the need to avoid abrupt cessation due to risk of discontinuation syndrome. The patient agreed to start a trial of duloxetine. 07/28/23: improving, tolerating Wellbutrin (1) Major depressive disorder, recurrent episode: (2) Generalized anxiety disorder: (3) Vitamin D deficiency: Plan 08/08/2023: * continue duloxetine 60 mg daily * stop lorazepam 1 mg Q8H (scheduled) * start clonazepam 1.5 mg BID * continue ergocalciferol 50,000 IU 2 x/wk * continue trazodone 150 mg QHS with repeat of 50 mg if not asleep within 1 hour * A private room is medically necessary for the safety of self and others. 08/07/2023: * continue duloxetine 60 mg daily * continue lorazepam 1 mg Q8H (scheduled) * continue ergocalciferol 50,000 IU 2 x/wk * continue trazodone 150 mg QHS with repeat of 50 mg if not asleep within 1 hour * A private room is medically necessary for the safety of self and others. 08/06/2023: * stop aripiprazole 5 mg QAM - started 08/04/2023 * continue duloxetine 60 mg daily * continue lorazepam 1 mg Q8H (scheduled) * continue ergocalciferol 50,000 IU 2 x/wk * increase trazodone to 150 mg QHS with repeat of 50 mg if not asleep within 1 hour * A private room is medically necessary for the safety of self and others. 08/05/2023: * continue aripiprazole 5 mg QAM - started 08/04/2023 * continue duloxetine 60 mg daily * continue lorazepam 1 mg Q8H (scheduled) * continue ergocalciferol 50,000 IU 2 x/wk * continue trazodone 100 mg QHS with repeat of 50 mg if not asleep within 1 hour * A private room is medically necessary for the safety of self and others. 08/04/2023: * start aripiprazole 5 mg QAM * continue duloxetine 60 mg daily * continue lorazepam 1 mg Q8H (scheduled) * continue ergocalciferol 50,000 IU 2 x/wk * continue trazodone 100 mg QHS with repeat of 50 mg if not asleep within 1 hour * A private room is medically necessary for the safety of self and others. 08/03/2023: * continue duloxetine 60 mg daily * continue lorazepam 1 mg Q8H (scheduled) * continue ergocalciferol 50,000 IU 2 x/wk * continue trazodone 100 mg QHS with repeat of 50 mg if not asleep within 1 hour * A private room is medically necessary for the safety of self and others. 08/02/2023: * continue duloxetine 60 mg daily * continue lorazepam 1 mg Q8H (scheduled) * continue ergocalciferol 50,000 IU 2 x/wk * stop melatonin * trial trazodone 100 mg QHS with repeat of 50 mg if not asleep within 1 hour * A private room is medically necessary for the safety of self and others. 08/01/2023: * continue duloxetine 60 mg daily * continue lorazepam 1 mg Q8H (scheduled) * continue ergocalciferol 50,000 IU 2 x/wk * trial melatonin 6 mg QHS (scheduled) 07/31/2023: * increase duloxetine to 60 mg daily * continue ergocalciferol 50,000 IU 2 x/wk 07/30/2023: * increase duloxetine to 40 mg QAM, anticipate rapid titration to target of 60 mg daily * start ergocalciferol 50,000 IU 2 x/wk 07/29/2023: * stop bupropion XL - started 07/26/2023 at 75 mg, increased to 150 mg * start duloxetine 20 mg QAM, anticipate rapid titration to target of 60 mg daily * In addition to the screening labs ordered in the ED, will order vitamin B12 level, folic acid level, 25-OH vitamin D level, ESR to rule out conditions pertinent to psychiatric symptoms. 07/28/23: continue Wellbutrin SR 150 mg. Family meeting. 07/27/23: no evidence of activation on Wellbutrin. Obessive thoughts experiencing are typical of what he was experiencing at home. New disclosure re: past trauma exposure and act of furtherance. 07/26/23: Risks/benefits/alternatives reviewed re: antidepressants for the treatment of depression and/or anxiety. The patient agreed to a trial of Wellbutrin 75 mg this afternoon then 150 mg SR qam with plan to shift to XL if sleep remains OK. 07/25/23: The patient was admitted to the [facility] ([facility] mental [facility] unit) on q15 min checks (behavioral with suicide precautions) for safety. The patient will participate in group, recreational, and milieu therapies and will be offered additional individual and family sessions as clinically appropriate. Discussed possible trial of an SNRI. Inventory Assets Strengths: verbal, utilizes family supports Needs: improve coping skills, safety plan around weapons Suicide Risk Level Suicide Risk Level: Moderate (q15 min suicide checks) Risk Factors Assessment Male: Yes : Yes Do You Have Access To A Gun?: Yes ( to secure) Health Problems: No Mental Health Diagnoses: Yes Substance Use Disorders: No Previous Attempt: No Family History of Suicide: Yes Previous Psychiatric Hospitalization: No Hopelessness: Yes Protective Factors Assessment Taoism Beliefs: Yes : Yes Employed: Yes Stable Relationships: Yes Supportive Family: Yes Interval History Identifying Information DALIA MEJIAS is a 48-year-old M who currently lives in [place], has no prior inpatient hospitalizations, and was admitted on 07/24/23 21:13 on a 201 voluntary commitment for SI with plan. Chief Complaint "Definitely feeling better". Review of Systems Sleep Information Total Hours of Sleep: 7.75 Sleep Comments: HS Trazadone Meal Information Percent Meal Consumed - Breakfast: 100 Percent Meal Consumed - Lunch: 100 Percent Meal Consumed - Dinner: 100 Nutrition Comment: Was documented that pt ate 100% of lunch but wasn't charted yet Subjective Subjective The patient was seen and assessed and interval progress reviewed in a multidisciplinary team meeting with the treatment team. For details, see the "Impression" section. Overall I spent a total of 47 minutes for this inpatient follow-up including review of chart records, direct evaluation of the patient [id number], counseling the patient, medication education with the patient, risk assessment, discussion during interdisciplinary treatment rounds, and documentation in the electronic health record. Physical Exam Psychiatric Orientation: alert, oriented to person, oriented to place, oriented to time and cooperative Apperance: appropriately dressed and appropriately groomed Eye Contact: good eye contact and + fair eye contact Motor Behavior: no abnormal motor movements Speech: normal rate/rhythm/volume of speech Affect: euthymic affect Mood: + depressed mood and + anxious mood Thought Process: goal directed thought process Thought Content: reality based without delusions Suicidal Thoughts: denies suicidal plan (on unit) and denies suicidal intent; + reports suicidal thoughts Homicidal Thoughts: denies homicidal thoughts Hallucinations: no auditory hallucinations and no visual hallucinations Cognition: attention grossly intact and language grossly intact Estimated Intelligence: consistent with education level Insight: + limited insight Judgment: + limited judgement Vital Signs (Past 24 Hours) Last Vital Signs Temp 36.7 C 08/08/23 06:27 Pulse 85 08/08/23 06:27 Resp 16 08/08/23 06:27 BP 111/66 08/08/23 06:27 Pulse Ox 97 07/31/23 06:41 O2 Del Method Room Air 07/31/23 06:41 Results & Data ([facility]) Current Inpatient Medications Current Inpatient Medications: Current Inpatient Medications Acetaminophen (Acetaminophen 325 Mg Tab) 650 mg PO Q4H PRN PRN Reason: Headache or Minor Fever Stop: 08/23/23 21:12 Al Hydrox/Mg Hydrox/Simethicone (Aluminum/Magnesium Susp 30 Ml Udc) 30 ml PO Q4H PRN PRN Reason: GI Upset Stop: 08/23/23 21:12 Bismuth Subsalicylate (Bismuth Subsalicylate Liqd 236 Ml) 15 ml PO PRN PRN PRN Reason: Loose Stool Stop: 08/23/23 21:12 Duloxetine HCl (Duloxetine Hcl 60 Mg Cap) 60 mg PO QAM [facility] Stop: 09/01/23 08:59 Last Admin: 08/08/23 08:56 Dose: 60 mg Ergocalciferol (Ergocalciferol 50,000 Units 1250 Mcg Cap) 50,000 units PO SuWe@1400 [facility] Stop: 08/29/23 13:59 Last Admin: 08/06/23 14:11 Dose: 50,000 units Hydroxyzine HCl (Hydroxyzine Hcl 25 Mg Tab) 50 mg PO HSZ PRN PRN Reason: Insomnia Stop: 08/23/23 21:12 Last Admin: 07/30/23 21:51 Dose: 50 mg Hydroxyzine HCl (Hydroxyzine Hcl 25 Mg Tab) 25 mg PO Q4H PRN PRN Reason: Anxiety Stop: 08/23/23 21:12 Lorazepam (Lorazepam 1 Mg Tab) 1 mg PO BID PRN PRN Reason: Anxiety/Insomnia Stop: 08/23/23 21:23 Last Admin: 07/30/23 09:04 Dose: 1 mg Lorazepam (Lorazepam 1 Mg Tab) 1 mg PO Q8 [facility] Stop: 08/29/23 13:59 Last Admin: 08/08/23 06:13 Dose: 1 mg Magnesium Hydroxide (Magnesium Hydroxide Susp 30 Ml Udc) 30 ml PO DAILY PRN PRN Reason: Constipation Stop: 08/23/23 21:12 Sodium Chloride (Sodium Chloride 0.65% Na Soln 45 Ml ([facility])) 1 - 2 sprays NA PRN PRN PRN Reason: Nasal Dryness/Congestion Stop: 08/23/23 21:12 Trazodone HCl (Trazodone Hcl 50 Mg Tab) 50 mg PO HS PRN PRN Reason: if not asleep within 1 hour of initial dose Stop: 09/01/23 21:59 Trazodone HCl (Trazodone Hcl 50 Mg Tab) 150 mg PO HS JOSELYN Stop: 09/05/23 21:59 Last Admin: 08/07/23 21:12 Dose: 150 mg Mental Health & Subst Abuse Tx Psychiatrist Name of Psychiatrist: [facility] Date Of Appointment With Psychiatric Provider: 09/05/2022 Time of Appointment with Psychiatrist: 10:30am Psychiatric Appointment Comment[address] [place] [address] Therapist Name of Therapist: Josephine Priest [facility] Appointments Primary Care Physician Name Of Family Doctor/PCP: Jason Deluca DO at [facility] Date of Future Appointment with PCP: 08/10/23 Time of Appointment with PCP: 1:15pm Provider Appointment Comment: Hayden Styles, [place] [id number] (1) Major depressive disorder, recurrent episode Major depression episode severity: severe Psychotic features: with psychotic features Qualified Code(s): F33.3 - Major depressive disorder, recurrent, severe with psychotic symptoms
[2023-08-08] MEDS ORDERED: clonazePAM 0.5 MG TAB PO SCH (21:00)
[2023-08-08] MEDS ORDERED: clonazePAM 1 MG TAB PO ONE (21:00)
[2023-08-08] MEDS: traZODone HCL 50 MG TAB PO SCH (21:07)
[2023-08-09] MEDS: DULoxetine HCL 60 MG CAP PO SCH (08:42)
[2023-08-09] MEDS: clonazePAM 0.5 MG TAB PO SCH ×2 (08:43→20:29)
--- NOTE | 2023-08-09 13:27 | Psychiatric Progress Note ---
Date of Service August 09, 2023 Impression / Recommendations Impression 48 yo male with hx of anxiety and previous depression with worsening symptoms in past 2-4 weeks, hx of side effects to multiple SSRIs, Lexapro was most helpful but will not restart as caused hair loss and ?burning in arms. 08/09/2023: "Really feeling a lot better". Reports he "slept pretty good". "Less" in the way of suicidal thoughts. He is "excited about [facility]", hoping for discharge prior to then. Clonazepam has been "so far, so good" in that it appears to control anxiety just as well with no apparent side effects. Discussed [id number] issues. 08/08/2023: Says he slept well again last night, again with 1 awakening. He notes "particularly dark thoughts for a while" but was able to get back to sleep. Continues to report improving mood, with corresponding improvement in affect. He has laughed spontaneously numerous times. Discussed some potential issues following discharge, including the TID lorazepam. I believe that continues to be an important part of his treatment but doubt he's likely to be able to take a midday dose consistently. He agreed. We discussed some options and decided to switch to clonazepam at an equipotent dose of 1.5 mg BID. 08/07/2023: Reports he's "feeling a lot better today" than the last 2 days "maybe about like Monday". He slept well with 150 mg trazodone, had 1 middle awakening but was able to get back to sleep quickly after getting up to urinate. He's "feeling more confident about using the tools" he's learned in groups. Doesn't volunteer suicidal thoughts but when asked says they are still quite frequent and "pretty intense". 08/06/2023: Reports middle awakenings last night with suicidal ruminations. Somewhat less negative and perseverative today but is worried that the cognitive tools he's been using to good effect haven't been as useful for his current symptoms. Chronology suggests that addition of aripiprazole may be a factor. Reviewed alternative cognitive interventions at some length. 08/05/2023: Continues to sleep well using 100 mg trazodone. "Morning went great". However, starting in the afternoon he started to feel more "foggy", less energetic, more depressed. He can't identify any precipitant. Pt also notes some subtle "double vision". This was not apparent this morning. The only clear change today is the first dose of aripiprazole this morning. No other things that seem as if they might be a side effect. More perseverative, hyperviscous today. 08/04/2023: Again reports having slept very well last night. He says his "mood has been a little better". He now says that the "dark" (suicidal) thoughts have been somewhat less frequent, though no less severe. Reports no new or worse symptoms. Discussed mood stabilizer to augment antidepressant response. Risks and benefits of, and alternatives to, the use of aripiprazole (Abilify) for mood were reviewed. This discussion included but was not limited to issues known potentially to be associated with use of such medication, especially at high doses or with longer use, including sedation, weight gain, problems with glucose metabolism including Type II diabetes, problems with lipid metabolism, cardiac conduction problems, or rarely involuntary movements, parkinsonian symptoms, or even acute dystonia or life-threatening Neuroleptic Malignant Syndrome. Discussed the need for periodic monitoring of fasting glucose or Hemoglobin A1c and fasting lipid panel, which the patient declined, for baseline monitoring. The patient agreed to start a trial of aripiprazole. 08/03/2023: Slept much better last night after taking trazodone (with no repeat) and with no roommate. His affect continues to improve, but he reports ongoing suicidal thoughts. These have a ruminative or almost obsessive quality and he tells me that at times these thoughts are ego-dystonic but that the more he "chews them over, the harder they are to shake". He really doesn't seem to have any other obsessive thoughts or any compulsive behaviors so I doubt this represents OCD. However, there certainly is a strong ruminative quality to what he describes. Discussed with pt that duloxetine is a good option for actual OCD and that the mood stabilizer olanzapine has been shown to reduce obsessive th oughts and might help reduce the intrusive and repetitive suicidal thoughts. He's really not interested in adding such a medication. 08/02/2023: Affect continues slowly to improve. He's attending most groups. Melatonin 6 mg taken last night appears to have been of no benefit for sleep. He reports finding himself very distracted by his roommate (who isn't objectively difficult-seeming) and unable to sleep with another person in the room. He's somewhat hesitant to use "a prescription for sleep". Reviewed the possibility of a mood stabilizer with sedating effects, which could also lead to faster mood response, but he was not comfortable with that option. Reviewed trazodone at some length, including rare risk of priapism. He'd like to try that. Has been tolerating duloxetine at a 60 mg dose without evidence of side effects. Will continue this dose. 08/01/2023: Humorously chides me for not yet having tried a local brand of bologna he'd recommended to me yesterday. Affect continues gradually to brighten. He attends groups but doesn't interact much with peers outside of them. He thinks his anxiety is under much better control but worries because improvement in depressed mood has been much less noticeable. He tells me he's "not really" having any suicidal thoughts and is pretty vague when I try to get him to be more specific about "not really". He asks about transfer to a facility where ECT could be an option based on a discussion about ECT after I'd completed my note yesterday. I reminded him that while ECT is probably the depression treatment with the fastest results, it still usually takes a couple of weeks to see benefit and that I'm pretty confident that his symptoms will respond to medication. Duloxetine dose has just been increased to 60 mg, at which dose he reports no side effects. Reports middle insomnia but doesn't want to take "one of those sleeping pills that make things weird". Discussed a trial of melatonin, which he has not used before. As he typically does, asks when he can be discharged to which I responded that despite his improvement I still didn't think it was safe for him to be discharged and that he was clearly benefiting from being in the hospital as evidenced by consistent if incremental improvement. 07/31/2023: Reviewed pt's suicide note (scanned into chart, q.v.) that was oddly cheerful and didn't address directly suicidality rather than alluding to it obliquely. It ended by encouraging to take a beach vacation. Presents as brighter, with occasional smile. Has been participating in groups fairly well. Still minimizes reasons for concern about suicide, since as far as he's concerned that was in the past. Discussed at some length plan of titrating duloxetine and whether to add a mood stabilizer such as aripiprazole. 07/30/2023: Guardedly reports feeling somewhat less awful. He says he slept better last night. He tolerated start of duloxetine 20 mg this morning, would like to proceed as planned with increase to 40 mg. Reviewed lab results showing moderate vitamin D deficiency and the need to treat this. Discussed again likely benefit and more rapid benefit with addition of a mood stabilizer, to which he remains opposed. : Profoundly depressed man who during an extended meeting with health care social worker and revealed broad extent of suicidality, e.g., carrying a rifle when he went for walks, scoping out the most appropriate place to shoot himself so his body would be found in time that his organs could be transplanted while minimizing distress to those who found his body; having written a suicide note that he locked in the gun safe so his wouldn't happen upon it and become distressed, but so it'd be ready for use when he needed it. Pt has been very anxious and says this is one of the reasons he's been contemplating suicide. Today reports feeling "wound up" since bupropion was started. Reviewed a broad range of options, including adding an SNRI to the bupropion. However, pt acknowledges a predisposition against using medication and doesn't think he'd continue a multi-drug regimen. Risks and benefits of, and alternatives to, the use of duloxetine (Cymbalta) for Major Depression and Generalized Anxiety Disorder symptoms were reviewed. This discussion included but was not limited to issues known potentially to be associated with use of such medication, especially at high doses or with longer use, including sedation, weight gain, GI side effects, or rarely elevated blood pressure or severe diaphoresis. Discussed the need to avoid abrupt cessation due to risk of discontinuation syndrome. The patient agreed to start a trial of duloxetine. 07/28/23: improving, tolerating Wellbutrin (1) Major depressive disorder, recurrent episode: (2) Generalized anxiety disorder: (3) Vitamin D deficiency: Plan 08/09/2023: * continue duloxetine 60 mg daily * continue clonazepam 1.5 mg BID - started 08/08/2023 to replace lorazepam 1 mg TID * continue ergocalciferol 50,000 IU 2 x/wk * continue trazodone 150 mg QHS with repeat of 50 mg if not asleep within 1 hour * A private room is medically necessary for the safety of self and others. 08/08/2023: * continue duloxetine 60 mg daily * stop lorazepam 1 mg Q8H (scheduled) * start clonazepam 1.5 mg BID * continue ergocalciferol 50,000 IU 2 x/wk * continue trazodone 150 mg QHS with repeat of 50 mg if not asleep within 1 hour * A private room is medically necessary for the safety of self and others. 08/07/2023: * continue duloxetine 60 mg daily * continue lorazepam 1 mg Q8H (scheduled) * continue ergocalciferol 50,000 IU 2 x/wk * continue trazodone 150 mg QHS with repeat of 50 mg if not asleep within 1 hour * A private room is medically necessary for the safety of self and others. 08/06/2023: * stop aripiprazole 5 mg QAM - started 08/04/2023 * continue duloxetine 60 mg daily * continue lorazepam 1 mg Q8H (scheduled) * continue ergocalciferol 50,000 IU 2 x/wk * increase trazodone to 150 mg QHS with repeat of 50 mg if not asleep within 1 hour * A private room is medically necessary for the safety of self and others. 08/05/2023: * continue aripiprazole 5 mg QAM - started 08/04/2023 * continue duloxetine 60 mg daily * continue lorazepam 1 mg Q8H (scheduled) * continue ergocalciferol 50,000 IU 2 x/wk * continue trazodone 100 mg QHS with repeat of 50 mg if not asleep within 1 hour * A private room is medically necessary for the safety of self and others. 08/04/2023: * start aripiprazole 5 mg QAM * continue duloxetine 60 mg daily * continue lorazepam 1 mg Q8H (scheduled) * continue ergocalciferol 50,000 IU 2 x/wk * continue trazodone 100 mg QHS with repeat of 50 mg if not asleep within 1 hour * A private room is medically necessary for the safety of self and others. 08/03/2023: * continue duloxetine 60 mg daily * continue lorazepam 1 mg Q8H (scheduled) * continue ergocalciferol 50,000 IU 2 x/wk * continue trazodone 100 mg QHS with repeat of 50 mg if not asleep within 1 hour * A private room is medically necessary for the safety of self and others. 08/02/2023: * continue duloxetine 60 mg daily * continue lorazepam 1 mg Q8H (scheduled) * continue ergocalciferol 50,000 IU 2 x/wk * stop melatonin * trial trazodone 100 mg QHS with repeat of 50 mg if not asleep within 1 hour * A private room is medically necessary for the safety of self and others. 08/01/2023: * continue duloxetine 60 mg daily * continue lorazepam 1 mg Q8H (scheduled) * continue ergocalciferol 50,000 IU 2 x/wk * trial melatonin 6 mg QHS (scheduled) 07/31/2023: * increase duloxetine to 60 mg daily * continue ergocalciferol 50,000 IU 2 x/wk 07/30/2023: * increase duloxetine to 40 mg QAM, anticipate rapid titration to target of 60 mg daily * start ergocalciferol 50,000 IU 2 x/wk 07/29/2023: * stop bupropion XL - started 07/26/2023 at 75 mg, increased to 150 mg * start duloxetine 20 mg QAM, anticipate rapid titration to target of 60 mg daily * In addition to the screening labs ordered in the ED, will order vitamin B12 level, folic acid level, 25-OH vitamin D level, ESR to rule out conditions pertinent to psychiatric symptoms. 07/28/23: continue Wellbutrin SR 150 mg. Family meeting. 07/27/23: no evidence of activation on Wellbutrin. Obessive thoughts experiencing are typical of what he was experiencing at home. New disclosure re: past trauma exposure and act of furtherance. 07/26/23: Risks/benefits/alternatives reviewed re: antidepressants for the treatment of depression and/or anxiety. The patient agreed to a trial of Wellbutrin 75 mg this afternoon then 150 mg SR qam with plan to shift to XL if sleep remains OK. 07/25/23: The [facility] on q15 min checks (behavioral with suicide precautions) for safety. The patient will participate in group, recreational, and milieu therapies and will be offered additional individual and family sessions as clinically appropriate. Discussed possible trial of an SNRI. Inventory Assets Strengths: verbal, utilizes family supports Needs: improve coping skills, safety plan around weapons Suicide Risk Level Suicide Risk Level: Moderate (q15 min suicide checks) Risk Factors Assessment Male: Yes : Yes Do You Have Access To A Gun?: Yes ( to secure) Health Problems: No Mental Health Diagnoses: Yes Substance Use Disorders: No Previous Attempt: No Family History of Suicide: Yes Previous Psychiatric Hospitalization: No Hopelessness: Yes Protective Factors Assessment Confucianist Beliefs: Yes : Yes Employed: Yes Stable Relationships: Yes Supportive Family: Yes Interval History Identifying Information DALIA MEJIAS is a 48-year-old M who currently lives in [place], has no prior inpatient hospitalizations, and was admitted on 07/24/23 21:13 on a 201 voluntary commitment for SI with plan. Chief Complaint "Feeling a lot better". Review of Systems Sleep Information Total Hours of Sleep: 6.5 Sleep Comments: HS Trazadone Meal Information Percent Meal Consumed - Breakfast: 100 Percent Meal Consumed - Lunch: 100 Percent Meal Consumed - Dinner: 100 Nutrition Comment: Was documented that pt ate 100% of lunch but wasn't charted yet Subjective Subjective The patient was seen and assessed and interval progress reviewed in a multidisciplinary team meeting with the treatment team. For details, see the "Impression" section. Overall I spent a total of 50 minutes for this inpatient follow-up including review of chart records, review of test results, direct evaluation of the patient [id number], counseling the patient, medication education with the patient, risk assessment, discussion during interdisciplinary treatment rounds, and documentation in the electronic health record. Physical Exam Psychiatric Orientation: alert, oriented to person, oriented to place, oriented to time and cooperative Apperance: appropriately dressed and appropriately groomed Eye Contact: good eye contact Motor Behavior: no abnormal motor movements Speech: normal rate/rhythm/volume of speech Affect: euthymic affect Mood: + anxious mood Thought Process: goal directed thought process Thought Content: reality based without delusions Suicidal Thoughts: denies suicidal plan (on unit) and denies suicidal intent; + reports suicidal thoughts Homicidal Thoughts: denies homicidal thoughts Hallucinations: no auditory hallucinations and no visual hallucinations Cognition: attention grossly intact and language grossly intact Estimated Intelligence: consistent with education level Insight: + limited insight Judgment: + limited judgement Vital Signs (Past 24 Hours) Last Vital Signs Temp 36.5 C 08/09/23 06:36 Pulse 98 H 08/09/23 06:37 Resp 16 08/09/23 06:36 BP 106/63 08/09/23 06:37 Pulse Ox 97 07/31/23 06:41 O2 Del Method Room Air 07/31/23 06:41 Results & Data ([facility]) Current Inpatient Medications Current Inpatient Medications: Current Inpatient Medications Acetaminophen (Acetaminophen 325 Mg Tab) 650 mg PO Q4H PRN PRN Reason: Headache or Minor Fever Stop: 08/23/23 21:12 Al Hydrox/Mg Hydrox/Simethicone (Aluminum/Magnesium Susp 30 Ml Udc) 30 ml PO Q4H PRN PRN Reason: GI Upset Stop: 08/23/23 21:12 Bismuth Subsalicylate (Bismuth Subsalicylate Liqd 236 Ml) 15 ml PO PRN PRN PRN Reason: Loose Stool Stop: 08/23/23 21:12 Clonazepam (Clonazepam 0.5 Mg Tab) 1.5 mg PO BID [facility] Stop: 09/08/23 08:59 Last Admin: 08/09/23 08:43 Dose: 1.5 mg Duloxetine HCl (Duloxetine Hcl 60 Mg Cap) 60 mg PO QAM [facility] Stop: 09/01/23 08:59 Last Admin: 08/09/23 08:42 Dose: 60 mg Ergocalciferol (Ergocalciferol 50,000 Units 1250 Mcg Cap) 50,000 units PO [id number]@[id number] [facility] Stop: 08/29/23 13:59 Last Admin: 08/06/23 14:11 Dose: 50,000 units Hydroxyzine HCl (Hydroxyzine Hcl 25 Mg Tab) 50 mg PO HSZ PRN PRN Reason: Insomnia Stop: 08/23/23 21:12 Last Admin: 07/30/23 21:51 Dose: 50 mg Hydroxyzine HCl (Hydroxyzine Hcl 25 Mg Tab) 25 mg PO Q4H PRN PRN Reason: Anxiety Stop: 08/23/23 21:12 Lorazepam (Lorazepam 1 Mg Tab) 1 mg PO BID PRN PRN Reason: Anxiety/Insomnia Stop: 08/23/23 21:23 Last Admin: 07/30/23 09:04 Dose: 1 mg Magnesium Hydroxide (Magnesium Hydroxide Susp 30 Ml Udc) 30 ml PO DAILY PRN PRN Reason: Constipation Stop: 08/23/23 21:12 Sodium Chloride (Sodium Chloride 0.65% Na Soln 45 Ml ([place])) 1 - 2 sprays NA PRN PRN PRN Reason: Nasal Dryness/Congestion Stop: 08/23/23 21:12 Trazodone HCl (Trazodone Hcl 50 Mg Tab) 50 mg PO HS PRN PRN Reason: if not asleep within 1 hour of initial dose Stop: 09/01/23 21:59 Trazodone HCl (Trazodone Hcl 50 Mg Tab) 150 mg PO HS JOSELYN Stop: 09/05/23 21:59 Last Admin: 08/08/23 21:07 Dose: 150 mg Mental Health & Subst Abuse Tx Psychiatrist Name of Psychiatrist: [facility] Date Of Appointment With Psychiatric Provider: 09/05/2022 Time of Appointment with Psychiatrist: 10:30am Psychiatric Appointment Comment[address] [place] [address] Therapist Name of Therapist: Josephine Priest [facility] Appointments Primary Care Physician Name Of Family Doctor/PCP: Jason Deluca DO at [facility] Date of Future Appointment with PCP: 08/10/23 Time of Appointment with PCP: 1:15pm Provider Appointment Comment: [place] [id number] (1) Major depressive disorder, recurrent episode Major depression episode severity: severe Psychotic features: with psychotic features Qualified Code(s): F33.3 - Major depressive disorder, recurrent, severe with psychotic symptoms
[2023-08-09] MEDS: ERGOCALCIFEROL 50,000 UNITS 1250 MCG CAP PO SCH (13:33)
[2023-08-09] MEDS: traZODone HCL 50 MG TAB PO SCH (21:28)
[2023-08-10] MEDS: DULoxetine HCL 60 MG CAP PO SCH (08:32)
[2023-08-10] MEDS: clonazePAM 0.5 MG TAB PO SCH ×2 (08:34→20:55)
--- NOTE | 2023-08-10 11:14 | Psychiatric Progress Note ---
Date of Service August 10, 2023 Impression / Recommendations Impression 48 yo male with hx of anxiety and previous depression with worsening symptoms in past 2-4 weeks, hx of side effects to multiple SSRIs, Lexapro was most helpful but will not restart as caused hair loss and ?burning in arms. 08/10/2023: Continues to report improvement daily. He's looking forward to anticipated discharge tomorrow. Says he's sleeping well, that anxiety is under good control, that his mood is "pretty decent", and that "the dark thoughts" (suicidal ruminations) are infrequent and that he's increasingly able to address them with cognitive tools he's been practicing. We reviewed the firearms he'd had at home - he gave his the combination to the gun safe, which she has changed. He's also told her where any other firearms might be found, and she's previously reported having undertaken an extensive search of the property along with his father. She's reported that she believes that all the firearms have been removed for safekeeping elsewhere or are stored in the gun safe that he can no longer access. Pt has been working with staff to build consensus about the date on which he should return to work, and Monday08/28/2023 has been identified as seeming most appropriate. His kids and will have next week off. The following week he has scheduled a number of projects with his father. 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 08/09/2023: "Really feeling a lot better". Reports he "slept pretty good". "Less" in the way of suicidal thoughts. He is "excited about [place]", hoping for discharge prior to then. Clonazepam has been "so far, so good" in that it appears to control anxiety just as well with no apparent side effects. Discussed [id number] issues. 08/08/2023: Says he slept well again last night, again with 1 awakening. He notes "particularly dark thoughts for a while" but was able to get back to sleep. Continues to report improving mood, with corresponding improvement in affect. He has laughed spontaneously numerous times. Discussed some potential issues following discharge, including the TID lorazepam. I believe that continues to be an important part of his treatment but doubt he's likely to be able to take a midday dose consistently. He agreed. We discussed some options and decided to switch to clonazepam at an equipotent dose of 1.5 mg BID. 08/07/2023: Reports he's "feeling a lot better today" than the last 2 days "maybe about like Monday". He slept well with 150 mg trazodone, had 1 middle awakening but was able to get back to sleep quickly after getting up to urinate. He's "feeling more confident about using the tools" he's learned in groups. Doesn't volunteer suicidal thoughts but when asked says they are still quite frequent and "pretty intense". 08/06/2023: Reports middle awakenings last night with suicidal ruminations. Somewhat less negative and perseverative today but is worried that the cognitive tools he's been using to good effect haven't been as useful for his current symptoms. Chronology suggests that addition of aripiprazole may be a factor. Reviewed alternative cognitive interventions at some length. 08/05/2023: Continues to sleep well using 100 mg trazodone. "Morning went great". However, starting in the afternoon he started to feel more "foggy", less energetic, more depressed. He can't identify any precipitant. Pt also notes some subtle "double vision". This was not apparent this morning. The only clear change today is the first dose of aripiprazole this morning. No other things that seem as if they might be a side effect. More perseverative, hyperviscous today. 08/04/2023: Again reports having slept very well last night. He says his "mood has been a little better". He now says that the "dark" (suicidal) thoughts have been somewhat less frequent, though no less severe. Reports no new or worse symptoms. Discussed mood stabilizer to augment antidepressant response. Risks and benefits of, and alternatives to, the use of aripiprazole (Abilify) for mood were reviewed. This discussion included but was not limited to issues known potentially to be associated with use of such medication, especially at high doses or with longer use, including sedation, weight gain, problems with glucose metabolism including Type II diabetes, problems with lipid metabolism, cardiac conduction problems, or rarely involuntary movements, parkinsonian symptoms, or even acute dystonia or life-threatening Neuroleptic Malignant Syndrome. Discussed the need for periodic monitoring of fasting glucose or Hemoglobin A1c and fasting lipid panel, which the patient declined, for baseline monitoring. The patient agreed to start a trial of aripiprazole. 08/03/2023: Slept much better last night after taking trazodone (with no repeat) and with no roommate. His affect continues to improve, but he reports ongoing suicidal thoughts. These have a ruminative or almost obsessive quality and he tells me that at times these thoughts are ego-dystonic but that the more he "chews them over, the harder they are to shake". He really doesn't seem to have any other obsessive thoughts or any compulsive behaviors so I doubt this represents OCD. However, there certainly is a strong ruminative quality to what he describes. Discussed with pt that duloxetine is a good option for actual OCD and that the mood stabilizer olanzapine has been shown to reduce obsessive thoughts and might help reduce the intrusive and repetitive suicidal thoughts. He's really not interested in adding such a medication. 08/02/2023: Affect continues slowly to improve. He's attending most groups. Melatonin 6 mg taken last night appears to have been of no benefit for sleep. He reports finding himself very distracted by his roommate (who isn't objectively difficult-seeming) and unable to sleep with another person in the room. He's somewhat hesitant to use "a prescription for sleep". Reviewed the possibility of a mood stabilizer with sedating effects, which could also lead to faster mood response, but he was not comfortable with that option. Reviewed trazodone at some length, including rare risk of priapism. He'd like to try that. Has been tolerating duloxetine at a 60 mg dose without evidence of side effects. Will continue this dose. 08/01/2023: Humorously chides me for not yet having tried a local brand of bologna he'd recommended to me yesterday. Affect continues gradually to brighten. He attends groups but doesn't interact much with peers outside of them. He thinks his anxiety is under much better control but worries because improvement in depressed mood has been much less noticeable. He tells me he's "not really" having any suicidal thoughts and is pretty vague when I try to get him to be more specific about "not really". He asks about transfer to a facility where ECT could be an option based on a discussion about ECT after I'd completed my note yesterday. I reminded him that while ECT is probably the depression treatment with the fastest results, it still usually takes a couple of weeks to see benefit and that I'm pretty confident that his symptoms will respond to medication. Duloxetine dose has just been increased to 60 mg, at which dose he reports no side effects. Reports middle insomnia but doesn't want to take "one of those sleeping pills that make things weird". Discussed a trial of melatonin, which he has not used before. As he typically does, asks when he can be discharged to which I responded that despite his improvement I still didn't think it was safe for him to be discharged and that he was clearly benefiting from being in the hospital as evidenced by consistent if incremental improvement. 07/31/2023: Reviewed pt's suicide note (scanned into [employer] that was oddly cheerful and didn't address directly suicidality rather than alluding to it obliquely. It ended by encouraging to take a beach vacation. Presents as brighter, with occasional smile. Has been participating in groups fairly well. Still minimizes reasons for concern about suicide, since as far as he's concerned that was in the past. Discussed at some length plan of titrating duloxetine and whether to add a mood stabilizer such as aripiprazole. 07/30/2023: Guardedly reports feeling somewhat less awful. He says he slept better last night. He tolerated start of duloxetine 20 mg this morning, would like to proceed as planned with increase to 40 mg. Reviewed lab results showing moderate vitamin D deficiency and the need to treat this. Discussed again likely benefit and more rapid benefit with addition of a mood stabilizer, to which he remains opposed. : Profoundly depressed man who during an extended meeting with social work manager and revealed broad extent of suicidality, e.g., carrying a rifle when he went for walks, scoping out the most appropriate place to shoot himself so his body would be found in time that his organs could be transplanted while minimizing distress to those who found his body; having written a suicide note that he locked in the gun safe so his wouldn't happen upon it and become distressed, but so it'd be ready for use when he needed it. Pt has been very anxious and says this is one of the reasons he's been contemplating suicide. Today reports feeling "wound up" since bupropion was started. Reviewed a broad range of options, including adding an SNRI to the bupropion. However, pt acknowledges a predisposition against using medication and doesn't think he'd continue a multi-drug regimen. Risks and benefits of, and alternatives to, the use of duloxetine (Cymbalta) for Major Depression and Generalized Anxiety Disorder symptoms were reviewed. This discussion included but was not limited to issues known potentially to be associated with use of such medication, especially at high doses or with longer use, including sedation, weight gain, GI side effects, or rarely elevated blood pressure or severe diaphoresis. Discussed the need to avoid abrupt cessation due to risk of discontinuation syndrome. The patient agreed to start a trial of duloxetine. 07/28/23: improving, tolerating Wellbutrin (1) Major depressive disorder, recurrent episode: (2) Generalized anxiety disorder: (3) Vitamin D deficiency: Plan 08/10/2023: continue duloxetine 60 mg daily * continue clonazepam 1.5 mg BID - started 08/08/2023 to replace lorazepam 1 mg TID * continue ergocalciferol 50,000 IU 2 x/wk * continue trazodone 150 mg QHS with repeat of 50 mg if not asleep within 1 hour * A private room is medically necessary for the safety of self and others. * anticipate discharge tomorrow 08/09/2023: * continue duloxetine 60 mg daily * continue clonazepam 1.5 mg BID - started 08/08/2023 to replace lorazepam 1 mg TID * continue ergocalciferol 50,000 IU 2 x/wk * continue trazodone 150 mg QHS with repeat of 50 mg if not asleep within 1 hour * A private room is medically necessary for the safety of self and others. 08/08/2023: * continue duloxetine 60 mg daily * stop lorazepam 1 mg Q8H (scheduled) * start clonazepam 1.5 mg BID * continue ergocalciferol 50,000 IU 2 x/wk * continue trazodone 150 mg QHS with repeat of 50 mg if not asleep within 1 hour * A private room is medically necessary for the safety of self and others. 08/07/2023: * continue duloxetine 60 mg daily * continue lorazepam 1 mg Q8H (scheduled) * continue ergocalciferol 50,000 IU 2 x/wk * continue trazodone 150 mg QHS with repeat of 50 mg if not asleep within 1 hour * A private room is medically necessary for the safety of self and others. 08/06/2023: * stop aripiprazole 5 mg QAM - started 08/04/2023 * continue duloxetine 60 mg daily * continue lorazepam 1 mg Q8H (scheduled) * continue ergocalciferol 50,000 IU 2 x/wk * increase trazodone to 150 mg QHS with repeat of 50 mg if not asleep within 1 hour * A private room is medically necessary for the safety of self and others. 08/05/2023: * continue aripiprazole 5 mg QAM - started 08/04/2023 * continue duloxetine 60 mg daily * continue lorazepam 1 mg Q8H (scheduled) * continue ergocalciferol 50,000 IU 2 x/wk * continue trazodone 100 mg QHS with repeat of 50 mg if not asleep within 1 hour * A private room is medically necessary for the safety of self and others. 08/04/2023: * start aripiprazole 5 mg QAM * continue duloxetine 60 mg daily * continue lorazepam 1 mg Q8H (scheduled) * continue ergocalciferol 50,000 IU 2 x/wk * continue trazodone 100 mg QHS with repeat of 50 mg if not asleep within 1 hour * A private room is medically necessary for the safety of self and others. 08/03/2023: * continue duloxetine 60 mg daily * continue lorazepam 1 mg Q8H (scheduled) * continue ergocalciferol 50,000 IU 2 x/wk * continue trazodone 100 mg QHS with repeat of 50 mg if not asleep within 1 hour * A private room is medically necessary for the safety of self and others. 08/02/2023: * continue duloxetine 60 mg daily * continue lorazepam 1 mg Q8H (scheduled) * continue ergocalciferol 50,000 IU 2 x/wk * stop melatonin * trial trazodone 100 mg QHS with repeat of 50 mg if not asleep within 1 hour * A private room is medically necessary for the safety of self and others. 08/01/2023: * continue duloxetine 60 mg daily * continue lorazepam 1 mg Q8H (scheduled) * continue ergocalciferol 50,000 IU 2 x/wk * trial melatonin 6 mg QHS (scheduled) 07/31/2023: * increase duloxetine to 60 mg daily * continue ergocalciferol 50,000 IU 2 x/wk 07/30/2023: * increase duloxetine to 40 mg QAM, anticipate rapid titration to target of 60 mg daily * start ergocalciferol 50,000 IU 2 x/wk 07/29/2023: * stop bupropion XL - started 07/26/2023 at 75 mg, increased to 150 mg * start duloxetine 20 mg QAM, anticipate rapid titration to target of 60 mg daily * In addition to the screening labs ordered in the ED, will order vitamin B12 level, folic acid level, 25-OH vitamin D level, ESR to rule out conditions pertinent to psychiatric symptoms. 07/28/23: continue Wellbutrin SR 150 mg. Family meeting. 07/27/23: no evidence of activation on Wellbutrin. Obessive thoughts experiencing are typical of what he was experiencing at home. New disclosure re: past trauma exposure and act of furtherance. 07/26/23: Risks/benefits/alternatives reviewed re: antidepressants for the treatment of depression and/or anxiety. The patient agreed to a trial of Wellbutrin 75 mg this afternoon then 150 mg SR qam with plan to shift to XL if sleep remains OK. 07/25/23: [facility]) on q15 min checks (behavioral with suicide precautions) for safety. The patient will participate in group, recreational, and milieu therapies and will be offered additional individual and family sessions as clinically appropriate. Discussed possible trial of an SNRI. Inventory Assets Strengths: verbal, utilizes family supports Needs: improve coping skills, safety plan around weapons Suicide Risk Level Suicide Risk Level: Moderate (q15 min suicide checks) Risk Factors Assessment Male: Yes : Yes Do You Have Access To A Gun?: Yes ( to secure) Health Problems: No Mental Health Diagnoses: Yes Substance Use Disorders: No Previous Attempt: No Family History of Suicide: Yes Previous Psychiatric Hospitalization: No Hopelessness: Yes Protective Factors Assessment Mosque Beliefs: Yes : Yes Employed: Yes Stable Relationships: Yes Supportive Family: Yes Interval History Identifying Information DALIA MEJIAS is a 48-year-old M who currently lives in [place], has no prior inpatient hospitalizations, and was admitted on 07/24/23 21:13 on a 201 voluntary commitment for SI with plan. Chief Complaint "Really doing pretty good". Review of Systems Sleep Information Total Hours of Sleep: 6.5 Sleep Comments: HS Trazadone Meal Information Percent Meal Consumed - Breakfast: 100 Percent Meal Consumed - Lunch: 100 Percent Meal Consumed - Dinner: 100 Nutrition Comment: Was documented that pt ate 100% of lunch but wasn't charted yet Subjective Subjective The patient was seen and assessed and interval progress reviewed in a multidisciplinary team meeting with the treatment team. For details, see the "Impression" section. Overall I spent a total of 58 minutes for this inpatient follow-up including review of chart records, direct evaluation of the patient [id number], counseling the patient, medication education with the patient, risk assessment, discussion during interdisciplinary treatment rounds, and documentation in the electronic health record. Physical Exam Psychiatric Orientation: alert, oriented to person, oriented to place, oriented to time and cooperative Apperance: appropriately dressed and appropriately groomed Eye Contact: good eye contact Motor Behavior: no abnormal motor movements Speech: normal rate/rhythm/volume of speech Affect: euthymic affect Mood: + depressed mood and + anxious mood Thought Process: goal directed thought process Thought Content: reality based without delusions Suicidal Thoughts: denies suicidal plan (on unit) and denies suicidal intent; + reports suicidal thoughts Homicidal Thoughts: denies homicidal thoughts Hallucinations: no auditory hallucinations and no visual hallucinations Cognition: attention grossly intact and language grossly intact Estimated Intelligence: consistent with education level Insight: + limited insight Judgment: + limited judgement Vital Signs (Past 24 Hours) Last Vital Signs Temp 36.9 C 08/10/23 06:35 Pulse 98 H 08/10/23 06:36 Resp 16 08/10/23 06:35 BP 101/61 08/10/23 06:36 Pulse Ox 97 07/31/23 06:41 O2 Del Method Room Air 07/31/23 06:41 Results & Data (U) Current Inpatient Medications Current Inpatient Medications: Current Inpatient Medications Acetaminophen (Acetaminophen 325 Mg Tab) 650 mg PO Q4H PRN PRN Reason: Headache or Minor Fever Stop: 08/23/23 21:12 Al Hydrox/Mg Hydrox/Simethicone (Aluminum/Magnesium Susp 30 Ml Udc) 30 ml PO Q4H PRN PRN Reason: GI Upset Stop: 08/23/23 21:12 Bismuth Subsalicylate (Bismuth Subsalicylate Liqd 236 Ml) 15 ml PO PRN PRN PRN Reason: Loose Stool Stop: 08/23/23 21:12 Clonazepam (Clonazepam 0.5 Mg Tab) 1.5 mg PO BID [facility] Stop: 09/08/23 08:59 Last Admin: 08/10/23 08:34 Dose: 1.5 mg Duloxetine HCl (Duloxetine Hcl 60 Mg Cap) 60 mg PO QAM [facility] Stop: 09/01/23 08:59 Last Admin: 08/10/23 08:32 Dose: 60 mg Ergocalciferol (Ergocalciferol 50,000 Units 1250 Mcg Cap) 50,000 units PO SuWe@1400 [facility] Stop: 08/29/23 13:59 Last Admin: 08/09/23 13:33 Dose: 50,000 units Hydroxyzine HCl (Hydroxyzine Hcl 25 Mg Tab) 50 mg PO HSZ PRN PRN Reason: Insomnia Stop: 08/23/23 21:12 Last Admin: 07/30/23 21:51 Dose: 50 mg Hydroxyzine HCl (Hydroxyzine Hcl 25 Mg Tab) 25 mg PO Q4H PRN PRN Reason: Anxiety Stop: 08/23/23 21:12 Lorazepam (Lorazepam 1 Mg Tab) 1 mg PO BID PRN PRN Reason: Anxiety/Insomnia Stop: 08/23/23 21:23 Last Admin: 07/30/23 09:04 Dose: 1 mg Magnesium Hydroxide (Magnesium Hydroxide Susp 30 Ml Udc) 30 ml PO DAILY PRN PRN Reason: Constipation Stop: 08/23/23 21:12 Sodium Chloride (Sodium Chloride 0.65% Na Soln 45 Ml ([place])) 1 - 2 sprays NA PRN PRN PRN Reason: Nasal Dryness/Congestion Stop: 08/23/23 21:12 Trazodone HCl (Trazodone Hcl 50 Mg Tab) 50 mg PO HS PRN PRN Reason: if not asleep within 1 hour of initial dose Stop: 09/01/23 21:59 Trazodone HCl (Trazodone Hcl 50 Mg Tab) 150 mg PO HS JOSELYN Stop: 09/05/23 21:59 Last Admin: 08/09/23 21:28 Dose: 150 mg Mental Health & Subst Abuse Tx Psychiatrist Name of Psychiatrist: [facility] Date Of Appointment With Psychiatric Provider: 09/05/2022 Time of Appointment with Psychiatrist: 10:30am Psychiatric Appointment Comment[address] [place] [address] Therapist Name of Therapist: Josephine Priest Post Discharge Appointments Primary Care Physician Name Of Family Doctor/PCP: Jason Deluca DO at [facility] Date of Future Appointment with PCP: 08/10/23 Time of Appointment with PCP: 1:15pm Provider Appointment Comment: [place] [id number] (1) Major depressive disorder, recurrent episode Major depression episode severity: severe Psychotic features: with psychotic features Qualified Code(s): F33.3 - Major depressive disorder, recurrent, severe with psychotic symptoms
[2023-08-10] MEDS: traZODone HCL 50 MG TAB PO SCH (21:55)
--- NOTE | 2023-08-11 06:58 | Discharge Summary ---
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 Cessation Medication Prescribed at Discharge: Not Applicable/Non-Smoker Discharge Plan Discharge Items Patient Disposition: Home - Self-Care Reason For Visit: MDD Discharge Diagnosis: Major Depressive Disorder, Recurrent, Severe, without Psychotic Features Activity: Resume your previous activity Non-emergency contact: Primary Care Provider and Psychiatrist Call non-emergency contact if: you have any medication questions and your symptoms worsen Follow-up/Referrals: Tate Deluca D.O. [Primary Care Provider] - Diet: Regular Addtl Attending Provider Instructions: SPECIAL CARE INSTRUCTIONS: 1. Follow through with your scheduled aftercare appointments. If unable to keep an appointment, please call to reschedule. 2. Take your medication only as prescribed. Medication should not be changed or stopped without the approval of your doctor. In the event of worsening symptoms or concerns about side effects, contact your doctor immediately. 3. Utilize new healthy coping skills, anger management skills, and stress management skills learned during your hospitalization. Journal feelings and process them with a support person. Identify stressors or situations that may result in relapse, deterioration or inappropriate behaviors and develop a plan to deal with those issues. 4. If your coping skills are ineffective and you are in crisis, contact your outpatient providers for direction. If unable to reach your providers, please call the [facility] CRISIS LINE AT , go to the [facility] walk-in center at [address], [place], or go to the closest Emergency Room. 5. Avoid alcohol and un-prescribed drugs. 6. You have been provided with the Mental Health Advance Directives Pamphlet for your review. 7. Your condition is stable for discharge to outpatient level of care, but recovery is an ongoing process. Ifthoughts to harm yourself or others return, follow the safety plan developed during your stay. Planning for a safe return home includes securing weapons. Our treatment team recommends weaponsbe removed from the home until your outpatient provider reassesses your progress. In rare cases where the items themselvescannot be removed, guns and ammunitionshould be secured separatelyand keys stored by a reliable personoutside of the home. If you were admitted on an involuntary commitment, the police or other legal authorities may be involved in this process. AFTERCARE APPOINTMENTS: * Please call your insurance company prior to your scheduled appointment to confirm your aftercare providers are covered. Take your insurance information to your appointments. WHO TO CALL AND WHEN: Medical Emergencies: For questions or emergencies related to your hospital stay, please contact the Inpatient Behavioral Health Unit at [phone]. A fitness assistant is on-call 13/03 for the Behavioral Health Unit for emergencies At any time you feel your situation is an emergency, you may also call 911 immediately. VITAMIN D For your Vitamin D insufficiency, continue prescription Vitamin D2 (ergocalciferol) 50,000 IU one capsule by mouth once a day for 4 weeks. When the prescription Vitamin D2 is finished, start [id number] Vitamin D3 (cholecalciferol) 2,000 IU one capsule by mouth every day. After a month of daily Vitamin D3 2,000 IU you should have your Vitamin D level re-checked. Pending Studies at Discharge: No Stand-Alone Forms: My [facility] Zoc[employer], Smoking Cessation Medications and DC Order Prescriptions: New trazodone 50 mg Tablet 150 mg PO HS 30 Days Qty: 90 0RF clonazepam 0.5 mg Tablet 1.5 mg PO BID 30 Days Qty: 180 0RF hydroxyzine HCl 25 mg Tablet 25 mg PO Q4H PRN (Reason: anxiety) 30 Days Qty: 30 0RF ergocalciferol (vitamin D2) 1,250 mcg (50,000 unit) Capsule 50,000 unit PO 2XWK 30 Days Qty: 8 0RF duloxetine 60 mg Capsule,Delayed Release(Dr/Ec) 60 mg PO QAM 30 Days Qty: 30 0RF Discharge Orders: Discharge Order (Routine); Ordered 08/11/23 Ordered By: Salvador Dunn Admission Data Admit Date/Time: 07/24/23 21:13 Attending Provider: Tonya Chen Admit Provider: Andrzej Pinzon Primary Care Provider: Tate Deluca Coding Level of Care Code 98028 D/C day mgmt > 30 min Diagnoses Severe episode of recurrent major depressive disorder, with psychotic features F33.3 Major depression episode severity: severe Psychotic features: with psychotic features Generalized anxiety disorder F41.1 Vitamin D deficiency E55.9 Time Spent (min) 39
[2023-08-11] MEDS: clonazePAM 0.5 MG TAB PO SCH (08:37)
[2023-08-11] MEDS: DULoxetine HCL 60 MG CAP PO SCH (08:38)
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
== END 2023-08-11 10:45 | disposition home or self-care (01) | DRG 885 ==
LOC: ED 17:08 → SUATTDRO 21:13 → 3S 21:13

== ENCOUNTER 2023-08-22 18:37 | Inpatient (IN) ==
--- NOTE | 2023-08-22 19:07 | Emergency Department Note ---
Impression & Plan Depression with suicidal ideation ED Provider Note NAME: DALIA MEJIAS AGE: 48 SEX: M : 1975 ARRIVES VIA: Walk-In INFORMANT: Patient ED PROVIDER(S): Adarsh Huertas DO CHIEF COMPLAINT: SI HPI: Patient is a 48-year-old male who presents the ER for suicidal ideations. He was just recently admitted has been talking to Dr. Dunn from our psychiatry unit. They recommend that he come back in for admission. He admits to suicidal ideations with a plan to hang himself. He notes he cannot shake these thoughts. Denies any headache or change in vision. No chest pain or shortness of breath. No nausea, vomiting, or diarrhea. No dysuria, urgency, or frequency. No other exacerbating or remitting factors. ADDITIONAL HISTORY OBTAINED: Per HPI Chronic Medical/Social Conditions Affecting Care: Per HPI PAST MEDICAL HISTORY:See Below PAST SURGICAL HISTORY:See Below FAMILY HISTORY:See Below SOCIAL HISTORY:See Below HOME MEDICATIONS:See Below ALLERGIES:See Below VITALS:See Below PHYSICAL EXAMINATION: GENERAL: Sitting up in bed, alert, well appearing, well nourished, no distress, non-toxic EYE EXAM: normal conjunctiva. PERRL and EOM's grossly intact. OROPHARYNX: no exudate, no erythema, lips, buccal mucosa, and tongue normal and mucous membranes are moist NECK: supple, no nuchal rigidity, no adenopathy, non-tender LUNGS: Clear to auscultation. Normal chest wall mechanics HEART: no murmurs, S1 normal and S2 normal ABDOMEN: abdomen soft, non-tender, normo-active bowel sounds, no masses, no rebound or guarding. BACK: Back is symmetrical on inspection and there is no deformity, no midline tenderness, no CVA tenderness. SKIN: no rashes and no bruising UPPER EXTREMITIES: upper extremities are grossly normal. LOWER EXTREMITIES: No pitting edema. NEURO EXAM: Normal sensorium, cranial nerves II-XII grossly intact, normal speech, no gross weakness of arms, no gross weakness of legs. No drift. Finger to nose intact. Gross sensation intact. PSYCH: Admits to suicidal ideations with plan to hang himself MEDICAL DECISION MAKING: Patient is a 48-year-old male who presents ER for above-stated complaint. Patient has suicidal ideations with plan to kill himself. Labs show no significant leukocytosis or anemia. BMP with LFTs bilirubin and TSH was unremarkable. UA was clean. Tox was negative. Alcohol negative. COVID- negative. Patient was seen and evaluated by her psychiatric daycare director. I discussed with her and we made a referral to 3 S. the patient was admitted on a 201. Consults/Care Managements Discussions: Per MDM Triage Nursing notes reviewed. Limited review of prior medical records performed Vital Signs: reviewed and remarkable for no significant abnormalities Differential diagnosis: Mood disorder, infection, hypoglycemia, electrolyte abnormalities, cardiac sources, intracerebral event, toxicologic, trauma, neurologic, as well as other pathologies. ER treatment provided: See below Diagnostics interpreted by me include EKG and cardiac monitoring as listed below: -ECG: none -Laboratory studies:Interpreted by me as stated above in MDM and shown below. 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 Beliefs That Will Affect Care: None Feels Safe at Home: Yes Gender Identity: Male Assistive Devices: None Allergies Allergies Allergy/AdvReac Type Severity Reaction Status Date / Time escitalopram [From Lexapro] AdvReac Intermediate Rash Unverified 07/24/23 22:25 Home Meds Previous Rx's Medication Instructions Recorded duloxetine 60 mg capsule,delayed 60 mg PO QAM 30 days #30 caps 08/11/23 release ergocalciferol (vitamin D2) 1,250 50,000 unit PO 2XWK 30 days #8 caps 08/11/23 mcg (50,000 unit) capsule hydroxyzine HCl 25 mg tablet 25 mg PO Q4H PRN anxiety 30 days 08/11/23 #30 tabs trazodone 50 mg tablet 150 mg (3 x 50 mg) PO HS 30 days 08/11/23 #90 tabs lorazepam 1 mg tablet (Ativan) 1 mg PO TID #14 tabs 08/18/23 Results & Data (ED) Vital Signs Vital Signs - 24 hr 08/22/23 18:44 08/22/23 19:29 Temperature 36.6 C Temperature Source Temporal Artery Scan Pulse Rate 92 H Pulse Rhythm Regular Pulse Strength Normal Respiratory Rate 18 Respiratory Effort / Characteristics Non-Labored Spontaneous Non-Labored Respiratory Depth Normal Normal Respiratory Pattern Regular Blood Pressure 135/90 Blood Pressure Mean 105 Blood Pressure Position Sitting Pulse Oximetry 96 Oxygen Delivery Method Room Air Sepsis Recent Fever Within 48 Hours No Sepsis New/Unexplained Change in Mental Status No Sepsis Action Taken by Nursing No Action Required Laboratory Data 08/22/23 19:15 08/22/23 19:15 Lab Results 08/22/23 Range/Units 19:15 WBC 6.44 (4.8-10.8) K/ul RBC 4.92 (4.70-6.10) M/uL Hgb 15.3 (14.0-18.0) g/dl Hct 43.9 (42.0-52.0) % MCV 89.2 (80.0-100.0) fL MCH 31.1 (25.0-34.0) pg MCHC 34.9 (32.0-36.0) g/dL RDW Std Deviation 40.7 (36.4-46.3) fL RDW Coeff of David 12.4 (11.5-14.5) % Plt Count 187 (130-400) K/uL MPV 10.6 (9.4-12.4) fL Immature Gran % (Auto) 0.2 % Neut % (Auto) 63.9 % Lymph % (Auto) 21.0 % [place] % (Auto) 11.8 % Eos % (Auto) 2.3 % Baso % (Auto) 0.8 % Neut # (Auto) 4.12 (1.40-6.50) K/uL Lymph # (Auto) 1.35 (1.20-3.40) K/uL [place] # (Auto) 0.76 H (0.11-0.59) K/uL Eos # (Auto) 0.15 (0.00-0.50) K/uL Baso # (Auto) 0.05 (0.00-0.20) K/uL Immature Gran # (Auto) 0.01 (0.01-0.20) K/uL Sodium 139 (136-145) mmol/L Potassium 3.8 (3.5-5.1) mmol/L Chloride 103 (98-107) mmol/L Carbon Dioxide 30 (21-32) mmol/L Anion Gap 6 (3-11) BUN 12 (6-23) mg/dl Creatinine 0.94 (0.6-1.4) mg/dl Est Cr Clr Drug Dosing 100.1 ml/min Est GFR ( Amer) 109.1 ml/min Est GFR (Non-Af Amer) 94.2 ml/min BUN/Creatinine Ratio 12.8 (10-20) Glucose 86 (70-99(Fasting)) mg/dl Calcium 9.4 (8.6-10.3) mg/dl Total Bilirubin 0.6 (0.2-1.0) mg/dl AST 21 (13-39) U/L ALT 25 (7-52) U/L Alkaline Phosphatase 65 (34-104) U/L Total Protein 7.1 (6.0-8.3) gm/dl Albumin 4.6 (3.4-5.0) gm/dl Globulin 2.5 (2.5-4.0) gm/dl Albumin/Globulin Ratio 1.8 (0.9-2) TSH 2.367 (0.300-4.500) uIu/ml Urine Color Yellow Urine Appearance Clear (Clear) Urine pH 6.5 (4.5-7.5) Ur Specific [place] 1.005 (1.000-1.030) Urine Protein Negative (Negative) Urine Glucose (UA) Negative (Negative) Urine Ketones Negative (Negative) Urine Blood Negative (Negative) Urine Nitrite Negative (Negative) Urine Bilirubin Negative (Negative) Urine Urobilinogen Negative (Negative) Ur Leukocyte Esterase Trace H (Negative) Urine WBC (Auto) 1-5 (0-5) /hpf Urine RBC (Auto) 0-4 (0-4) /hpf U Hyaline Cast (Auto) 0 (0-5) /lpf U Epithel Cells (Auto) 0-5 (0-5) /lpf Urine Bacteria (Auto) Negative (Negative) Salicylates < 3.0 L (3.0-30) mg/dl Urine Opiates Screen Neg (Neg) Ur Methadone, Qual Neg (Neg) Acetaminophen < 3 L (10-30) ug/ml Urine Barbiturates Neg (Neg) Ur Phencyclidine (PCP) Neg (Neg) U Amphetamin/Meth Scrn Neg (Neg) MDMA (Ecstasy) Screen Neg (Neg) U Benzodiazepines Scrn Neg (Neg) Ur Cocaine Metabolite Neg (Neg) U Marijuana (THC) Screen Neg (Neg) Ethyl Alcohol mg/dL < 10.0 (<10.0) mg/dl SARS-CoV-2, RNA, NAAT NEGATIVE (NEGATIVE) Administered Medications Trazodone HCl (Trazodone Hcl 100 Mg Tab) 150 mg PO HS JOSELYN Stop: 09/22/23 20:59 Last Admin: 08/22/23 23:54 Dose: 150 mg Documented By: DMT Discontinued Medications Lorazepam (Lorazepam 1 Mg Tab) 1 mg SL NOW STA Stop: 08/22/23 20:24 Last Admin: 08/22/23 20:31 Dose: 1 mg Documented By: TBS Discharge Plan Visit Data Chief Complaint: Mental Health Evaluation Stated Complaint: SUICIDAL THOUGHTS ED Provider: Adarsh Huertas Discharge Problem: Depression with suicidal ideation Patient Disposition: Admitted As Inpatient Discharge Instructions Interventions: ED Discharge Assessment Last Done: 08/22/23 21:39
[2023-08-22 19:38] LABS: Appearance Urine Clear (Clear); Bacteria Urine Automated Negative (Negative); Bilirubin Urine Negative (Negative); Blood Urine Negative (Negative); Cast Urine Automated 0 /lpf (0-5); Color Urine Yellow; Epithelial Cell Urine Auto 0-5 /lpf (0-5); Glucose Urine UA Negative (Negative); Ketones Urine Negative (Negative); Leukocyte Esterase Urine Trace (Negative); Nitrite Urine Negative (Negative); Protein Urine Negative (Negative); RBC Urine Automated 0-4 /hpf (0-4); Specific Gravity Urine 1.005 (1.000-1.030); Urobilinogen Urine Negative (Negative); pH Urine 6.5 (4.5-7.5)
[2023-08-22 19:51] LABS: Basophils # (auto) 0.05 K/uL (0.00-0.20); Basophils % (auto) 0.8 %; Eosinophils # (auto) 0.15 K/uL (0.00-0.50); Eosinophils % (auto) 2.3 %; Hematocrit (blood only) 43.9 % (42.0-52.0); Hemoglobin 15.3 g/dl (14.0-18.0); Immature Granulocytes # (auto) 0.01 K/uL (0.01-0.20); Immature Granulocytes % (auto) 0.2 %; Lymphocytes # (auto) 1.35 K/uL (1.20-3.40); Mean Corpuscular Hemoglobin 31.1 pg (25.0-34.0); Mean Corpuscular Hgb Conc 34.9 g/dL (32.0-36.0); Mean Corpuscular Volume 89.2 fL (80.0-100.0); Mean Platelet Volume 10.6 fL (9.4-12.4); Monocytes # (auto) 0.76 K/uL (0.11-0.59); Monocytes % (auto) 11.8 %; Neutrophils # (auto) 4.12 K/uL (1.40-6.50); Neutrophils % (auto) 63.9 %; Platelet Count 187 K/uL (130-400); RDW Coefficient of Variation 12.4 % (11.5-14.5); RDW Standard Deviation 40.7 fL (36.4-46.3); Red Blood Count 4.92 M/uL (4.70-6.10); White Blood Count 6.44 K/ul (4.8-10.8)
[2023-08-22 19:57] LABS: Albumin Globulin Ratio 1.8 (0.9-2); Albumin Level 4.6 gm/dl (3.4-5.0); BUN Creatinine Ratio 12.8 (10-20); Bilirubin,Total 0.6 mg/dl (0.2-1.0); Calcium 9.4 mg/dl (8.6-10.3); Creatinine Clr Calc Pharmacy 100.1 ml/min; Est GFR (African American) 109.1 ml/min; Est GFR (Non-African American) 94.2 ml/min; Globulin 2.5 gm/dl (2.5-4.0); Potassium 3.8 mmol/L (3.5-5.1); Total Protein 7.1 gm/dl (6.0-8.3)
[2023-08-22 20:11] LABS: Amphetamines+Metham, Urine Neg (Neg); Barbiturates, Urine Neg (Neg); Benzodiazepine, Urine Neg (Neg); Cocaine, Urine Neg (Neg); MDMA (Ecstacy), Urine Neg (Neg); Marijuana, Urine Neg (Neg); Methadone, Urine Neg (Neg); Opiate, Urine Neg (Neg); Phencyclidine, Urine Neg (Neg)
[2023-08-22 20:12] LABS: Thyroid Stimulating Hormone 2.367 uIu/ml (0.300-4.500)
[2023-08-22 20:14] LABS: Acetaminophen < 3 ug/ml (10-30); Salicylate < 3.0 mg/dl (3.0-30)
[2023-08-22] MEDS ORDERED: LORazepam 1 MG TAB SL STA (20:23)
[2023-08-22] MEDS ORDERED: hydrOXYzine HCl 25 MG TAB PO PRN ×2 (21:18)
[2023-08-22] MEDS ORDERED: SODIUM CHLORIDE 0.65% NA SOLN 45 ML (OCEAN) PRN (21:18)
[2023-08-22] MEDS ORDERED: ACETAMINOPHEN 325 MG TAB PO PRN (21:18)
[2023-08-22] MEDS ORDERED: BISMUTH SUBSALICYLATE LIQD 236 ML PO PRN (21:18)
[2023-08-22] MEDS ORDERED: ALUMINUM/MAGNESIUM SUSP 30 ML UDC PO PRN (21:18)
[2023-08-22] MEDS ORDERED: MAGNESIUM HYDROXIDE SUSP 30 ML UDC PO PRN (21:18)
[2023-08-22] MEDS: traZODone HCL 100 MG TAB PO SCH (23:54)
--- NOTE | 2023-08-23 10:31 | History & Physical ---
Date of Service August 23, 2023 Impression / Recommendations Impression Very likeable 48 y/o man with history of depression and anxiety, recently discharged following an 18-day stay for severe depression with prominent melancholic features. Over the past few days his symptoms have worsened substantially and he's now contemplating hanging himself because he no longer has access to firearms. He has remained completely adherent to the medication regimen prescribed at discharge. Mr. Chaudhry clearly presents a somewhat alarming risk of completing suicide. An uncle and a cousin by suicide. He has a current plan of high potential lethality, and the previous very high-lethality plan that's no longer practicable for him involved detailed planning of a range of practical issues related to suicide. He feels hopeless, self-reproachful, and very anxious. Pt is psychiatrically unstable and requires psychiatric hospitalization for safety, stabilization, and medication management, but should also strongly be considered for ECT since his presentation is very consistent with features associated with excellent response to ECT. He is very interested in pursuing this. I reviewed pt's current medications and we agreed to maintain them unchanged for now. Overall I spent a total of 165 minutes on the floor for this admission including review of chart records, review of test results, direct evaluation of the patient [id number], counseling the patient, reconciling and ordering m edication, medication education with the patient, risk assessment, discussion during interdisciplinary treatment rounds, and documentation in the electronic health record. (1) Major depressive disorder, recurrent, severe without psychotic features: (2) Generalized anxiety disorder: (3) Vitamin D deficiency: Plan The patient was admitted to the [facility] on q15 minute checks (behavioral with suicide precautions) for safety.The patient will participate in group, recreational, and milieu therapies and will be offered additional individual and family sessions as clinically appropriate. * continue duloxetine 60 mg daily - prior to admission medication * continue lorazepam 1 mg TID - prior to admission medication * continue trazodone 150 mg QHS (scheduled) - prior to admission medication * continue ergocalciferol 50,000 IU twice weekly for 2 more weeks, then switch to cholecalciferol 2,000 IU daily * pursue referral for ECT Inventory Assets Strengths: supportive relationships, has local supports, voluntary, good insight, intelligent, employed Needs: safety and stabilization, medication adjustment, additional coping skills Suicide Risk Level Suicide Risk Level: High-Moderate (q15 min suicide checks) (feels safe on the unit and readily agrees to notify staff if he feels as if he might act on suicidal thoughts, but had a high-lethality plan prior to admission) Risk Factors Assessment Male: Yes : Yes Do You Have Access To A Gun?: No ( has secured firearms elsewhere) Health Problems: No Mental Health Diagnoses: Yes Substance Use Disorders: No Previous Attempt: No Family History of Suicide: Yes (uncle, cousin) Previous Psychiatric Hospitalization: Yes Hopelessness: Yes Protective Factors Assessment : Yes 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 Chief Complaint "I can't seem to make it work". History of Present Illness 48 y/o man with longstanding depression and anxiety symptoms discharged from this service on 08/15/2023 after having been admitted on 07/25/2023. He had reported constant suicidal ruminations for the preceding 2 weeks with specific plans to shoot himself with a rifle and spent long hours hiking near his house with a rifle "waiting for the moment". He had written a suicide note that he put in the gun safe so as not to alarm his if she were to "find it too early". He spent hours identifying the best location for him to shoot himself in order to avoid his 's encountering his body and to minimize distress on the part of those who found him, but also to ensure that his body was discovered in time for his organs to be harvested. He had berated himself for "not going through with it", although the intense suicidal thoughts were ego-dystonic and contributed to his self-reproach about being a bad father and . He reported feeling as if his mind were disintegrating and being unable to think or make decisions. 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 Following admission he exhibited classic melancholic features including marked anhedonia, excessive and inappropriate guilt and constant self-reproach, hopelessness, initial and middle insomnia with supervisor salvage awakening, restlessness (pacing, "fiddling" with his hands), worse mood in the mornings, loss of appetite, poor concentration and difficulty making decisions with preoccupation with the feeling that his mind no longer functioned. He reported constant "dark thoughts" (nearly obsessive suicidal rumination) and anxiety. He was started on bupropion in part because of his marked difficulty focusing and concentrating but felt more "wound up" on it. He responded moderately well to duloxetine that was titrated to 60 mg daily, and addition of lorazepam 1 mg TID was very helpful for his intense anxiety. A trial of aripiprazole 5 mg was begun in an attempt to hasten the clinical response in his mood, but appeared to cause akathisia. He slept much better with trazodone 150 mg QHS. He was committed to using cognitive-behavioral tools which he found very helpful, but each time this wasn't completely effective he would conclude there was no hope of his ever feeling better. He eventually provided his with the combination to the gun safe so his arsenal of weapons could be removed. His "dark thoughts" diminished in intensity and frequency but remained present to a degree at discharge. I phoned the patient on the day of admission related to a prescription issue. He revealed that he was "not doing too well" and "having a lot of dark thoughts". He apologized for his failure to do as well as we'd hoped and said that he felt as if his mind were "falling apart". I instructed him to come to the ED for readmission, but he didn't think he could drive safely. We constructed a plan of his 's bringing him and notifying us by 6 PM that everyone was agreed on that plan (which they did). When pt arrived in the ED, he expressed surprise that the plan was admission and seemed to think I'd told him to come for outpatient medication adjustment. In the ED, he revealed a plan to hang himself (because he no longer has access to firearms). He lost his appetite about 2 days previously and began sleeping more poorly. His anxiety worsened and he reported multiple panic attacks per day (while remaining on lorazepam 1 mg TID that had been very helpful previously). On exam today pt immediately apologizes for failing outpatient treatment. He is very distracted and has trouble focusing, with consequent difficulty following the conversation and needing to start over at several points. He looks very tired and explains he slept poorly last night. This morning he's about as anxious about money as anything else, in part because this hospital is [id number] for his insurance, and in part because he fears he'll never be able to work again if his mind doesn't start functioning properly. ECT had been discussed during his previous stay in light of the severity of his depression and clear melancholic features as well as failures of multiple medication trials. He was open to considering this but then started showing improvement when bupropion was stopped and lorazepam added. Today he brings that up and asks if it should be reconsidered. The RN, sexual assault social worker, and I each discussed this with him over the course of the morning and upon discussing it to gether in a multidisciplinary team meeting agreed that ECT appears strongly indicated. Unfortunately, that treatment is not offered here so we'll need to identify a facility where it is available and might be considered. Past Psychiatric History Previous Psych History: longstanding depression and anxiety, worsened markedly late 2022 with no identified precipitant Current Psychiatric Diagnosis: Depression, Anxiety Previous Psych Admissions: [facility] July 2023 Do You Have Access To A Gun?: No ( has secured firearms elsewhere) History of Previous Suicide Attempt: No Past Medication Trials: paroxetine. escitalopram, buspirone, (for tobacco cessation with no side effects, with excessive activation when trialed for depression at 150 mg/day), fluoxetine, quetiapine, buspirone Allergies Allergy/AdvReac Type Severity Reaction Status Date / Time escitalopram [From Lexapro] Allergy Intermediate Rash Verified 08/23/23 11:05 clonazepam AdvReac Intermediate Uncoded 08/23/23 11:05 Home Medications Medication Instructions Recorded Confirmed Type duloxetine 60 mg capsule,delayed 60 mg PO QAM 30 days #30 caps 08/11/23 08/22/23 Rx release ergocalciferol (vitamin D2) 1,250 50,000 unit PO 2XWK 30 days #8 caps 08/11/23 08/22/23 Rx mcg (50,000 unit) capsule hydroxyzine HCl 25 mg tablet 25 mg PO Q4H PRN anxiety 30 days 08/11/23 08/22/23 Rx #30 tabs trazodone 50 mg tablet 150 mg (3 x 50 mg) PO HS 30 days 08/11/23 08/22/23 Rx #90 tabs lorazepam 1 mg tablet (Ativan) 1 mg PO TID #14 tabs 08/18/23 08/22/23 Rx Family History Family History of: Depression, Anxiety and Suicide Completion Family Mental Health History Comment: Cousin and Uncle both completed suicide Alcohol History Hx of Alcohol Use Over the Past 12 Months: No AUDIT Total Score: 0 Smoking Use Have You Smoked or Used Tobacco Products in the Last 30 Days: No tobacco type: cigarettes Smoking Status: Never smoker Substance History Hx of Prescription Med Misuse Over the Past 12 Months: No Hx of Over the Counter Med Misuse Over the Past 12 Months: No Hx of Inhalent Misuse Over the Past 12 Months: No Hx of Organic Substance Use Over the Past 12 Months: No Hx of Illegal Substances/Street Drug Use Over Past 12 Months: No Problems as a Result of Past Substance Use: None Identified Personal History Living Arrangements: Home Highest Grade Completed: College Beliefs That Will Affect Care: None Hx Traumatic Life Events: No Patient History Medical History (Updated 08/23/23 @ 12:02 by Salvador Dunn MD) Major depressive disorder, recurrent, severe without psychotic features prominent melancholic features Vitamin D deficiency Crohn's disease Surgical History No pertinent past surgical history Social History Smoking Status: Never smoker Preferred Language: Croatian Communication Ability: Effective Warehouse Lead Required: No Beliefs That Will Affect Care: None Feels Safe at Home: Yes Gender Identity: Male Assistive Devices: None Review of Systems Psychiatric: + depression, + hopelessness, + anhedoni a, + abnormal sleep pattern, + suicidal ideation, + anxiety, + panic attacks, + difficulty concentrating and + confusion; no paranoia, no hallucinations and no substance abuse Physical Exam Vital Signs (Past 24 Hours): Last Vital Signs Temp 36.5 C 08/23/23 06:20 Pulse 85 08/23/23 06:21 Resp 16 08/23/23 06:20 BP 121/81 08/23/23 06:21 Pulse Ox 96 08/23/23 06:20 O2 Del Method Room Air 08/23/23 06:20 Exam Statement: A physical exam was performed in the ED for the purposes of medical clearance. I accept that physical as correct and adequate for the purposes of the inpatient physical examand have incorporated that information into my assessment. Results & Data ([facility]) Laboratory Results Laboratory Results - last 24 hr 08/22/23 19:15 WBC 6.44 RBC 4.92 Hgb 15.3 Hct 43.9 MCV 89.2 MCH 31.1 MCHC 34.9 RDW Std Deviation 40.7 RDW Coeff of David 12.4 Plt Count 187 MPV 10.6 Immature Gran % (Auto) 0.2 Neut % (Auto) 63.9 Lymph % (Auto) 21.0 [place] % (Auto) 11.8 Eos % (Auto) 2.3 Baso % (Auto) 0.8 Neut # (Auto) 4.12 Lymph # (Auto) 1.35 [place] # (Auto) 0.76 H Eos # (Auto) 0.15 Baso # (Auto) 0.05 Immature Gran # (Auto) 0.01 Sodium 139 Potassium 3.8 Chloride 103 Carbon Dioxide 30 Anion Gap 6 BUN 12 Creatinine 0.94 Est Cr Clr Drug Dosing 100.1 Est GFR ( Amer) 109.1 Est GFR (Non-Af Amer) 94.2 BUN/Creatinine Ratio 12.8 Glucose 86 Calcium 9.4 Total Bilirubin 0.6 AST 21 ALT 25 Alkaline Phosphatase 65 Total Protein 7.1 Albumin 4.6 Globulin 2.5 Albumin/Globulin Ratio 1.8 TSH 2.367 Urine Color Yellow Urine Appearance Clear Urine pH 6.5 Ur Specific Sal[place] 1.005 Urine Protein Negative Urine Glucose (UA) Negative Urine Ketones Negative Urine Blood Negative Urine Nitrite Negative Urine Bilirubin Negative Urine Urobilinogen Negative Ur Leukocyte Esterase Trace H Urine WBC (Auto) 1-5 Urine RBC (Auto) 0-4 U Hyaline Cast (Auto) 0 U Epithel Cells (Auto) 0-5 Urine Bacteria (Auto) Negative Salicylates < 3.0 L Urine Opiates Screen Neg Ur Methadone, Qual Neg Acetaminophen < 3 L Urine Barbiturates Neg Ur Phencyclidine (PCP) Neg U Amphetamin/Meth Scrn Neg MDMA (Ecstasy) Screen Neg U Benzodiazepines Scrn Neg Ur Cocaine Metabolite Neg U Marijuana (THC) Screen Neg Ethyl Alcohol mg/dL < 10.0 SARS-CoV-2, RNA, NAAT NEGATIVE Current Inpatient Medications Current Inpatient Medications: Current Inpatient Medications Acetaminophen (Acetaminophen 325 Mg Tab) 650 mg PO Q4H PRN PRN Reason: Headache or Minor Fever Stop: 09/21/23 21:17 Al Hydrox/Mg Hydrox/Simethicone (Aluminum/Magnesium Susp 30 Ml Udc) 30 ml PO Q4H PRN PRN Reason: GI Upset Stop: 09/21/23 21:17 Bismuth Subsalicylate (Bismuth Subsalicylate Liqd 236 Ml) 15 ml PO PRN PRN PRN Reason: Loose Stool Stop: 09/21/23 21:17 Hydroxyzine HCl (Hydroxyzine Hcl 25 Mg Tab) 50 mg PO HSZ PRN PRN Reason: Insomnia Stop: 09/21/23 21:17 Hydroxyzine HCl (Hydroxyzine Hcl 25 Mg Tab) 25 mg PO Q4H PRN PRN Reason: Anxiety Stop: 09/21/23 21:17 Magnesium Hydroxide (Magnesium Hydroxide Susp 30 Ml Udc) 30 ml PO DAILY PRN PRN Reason: Constipation Stop: 09/21/23 21:17 Sodium Chloride (Sodium Chloride 0.65% Na Soln 45 Ml (Vaiva Vo)) 1 - 2 sprays NA PRN PRN PRN Reason: Nasal Dryness/Congestion Stop: 09/21/23 21:17 Trazodone HCl (Trazodone Hcl 100 Mg Tab) 150 mg PO HS JOSELYN Stop: 09/22/23 20:59 Last Admin: 08/22/23 23:54 Dose: 150 mg
[2023-08-23] MEDS ORDERED: ERGOCALCIFEROL 50,000 UNITS 1250 MCG CAP PO SCH (11:00)
[2023-08-23] MEDS: DULoxetine HCL 60 MG CAP PO SCH (11:27)
[2023-08-23] MEDS: LORazepam 1 MG TAB PO SCH ×2 (13:39→21:20)
[2023-08-23] MEDS: traZODone HCL 100 MG TAB PO SCH (22:07)
[2023-08-24] MEDS: DULoxetine HCL 60 MG CAP PO SCH (07:58)
[2023-08-24] MEDS: LORazepam 1 MG TAB PO SCH ×3 (07:59→21:16)
[2023-08-24] MEDS ORDERED: DULoxetine HCL 60 MG CAP PO SCH (09:00)
--- NOTE | 2023-08-24 14:19 | Psychiatric Progress Note ---
Date of Service August 24, 2023 Impression / Recommendations Impression Very likeable 48 y/o man with history of depression and anxiety, recently discharged following an 18-day stay for severe depression with prominent melancholic features. Over the past few days his symptoms have worsened substantially and he's now contemplating hanging himself because he no longer has access to firearms. He has remained completely adherent to the medication regimen prescribed at discharge. Mr. Chaudhry clearly presents a somewhat alarming risk of completing suicide. An uncle and a cousin by suicide. He has a current plan of high potential lethality, and the previous very high-lethality plan that's no longer practicable for him involved detailed planning of a range of practical issues related to suicide. He feels hopeless, self-reproachful, and very anxious. 08/24/2023: Has been tentatively accepted for ECT by Dr. Holt at [facility], who agrees he is an excellent candidate for that treatment. We are currently awaiting bed availability. Pt has begun to have intrusive worries about the fact that he knows people who work at [facility]. Discussed that he'll almost certainly need outpatient ECT and that there is the only place for outpatient ECT that would make any sense even if he were to be admitted elsewhere. Is quite anxious, with the perseverative/obsessive worries seen during his previous admission. 08/23/2023: Pt is psychiatrically unstable and requires psychiatric hospitalization for safety, stabilization, and medication management, but should also strongly be considered for ECT since his presentation is very consistent with features associated with excellent response to ECT. He is very interested in pursuing this. I reviewed pt's current medications and we agreed to maintain them unchanged for now. (1) Major depressive disorder, recurrent, severe without psychotic features: (2) Generalized anxiety disorder: (3) Vitamin D deficiency: Plan 08/24/2023: continue duloxetine 60 mg daily - prior to admission medication * continue lorazepam 1 mg TID - prior to admission medication * continue trazodone 150 mg QHS (scheduled) - prior to admission medication * continue ergocalciferol 50,000 IU twice weekly for 2 more weeks, then switch to cholecalciferol 2,000 IU daily * await bed availability at [facility] then transfer for ECT 08/23/2023: The patient was admitted to the [facility] ([facility]) on q15 minute checks (behavioral with suicide precautions) for safety.The patient will participate in group, recreational, and milieu therapies and will be offered additional individual and family sessions as clinically appropriate. * continue duloxetine 60 mg daily - prior to admission medication * continue lorazepam 1 mg TID - prior to admission medication * continue trazodone 150 mg QHS (scheduled) - prior to admission medication * continue ergocalciferol 50,000 IU twice weekly for 2 more weeks, then switch to cholecalciferol 2,000 IU daily * pursue referral for ECT Inventory Assets Strengths: supportive relationships, has local supports, voluntary, good insight, intelligent, employed Needs: safety and stabilization, medication adjustment, additional coping skills Suicide Risk Level Suicide Risk Level: High-Moderate (q15 min suicide checks) (feels safe on the unit and readily agrees to notify staff if he feels as if he might act on suicidal thoughts, but had a high-lethality plan prior to admission) Risk Factors Assessment Male: Yes : Yes Do You Have Access To A Gun?: Yes ( is able to secure guns) Health Problems: No Mental Health Diagnoses: Yes Substance Use Disorders: No Previous Attempt: No Family History of Suicide: Yes (uncle, cousin) Previous Psychiatric Hospitalization: Yes Hopelessness: Yes Protective Factors Assessment : Yes 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 Chief Complaint "I just can't seem to get everything straight". Review of Systems Sleep Information Total Hours of Sleep: 6.5 Sleep Comments: Took scheduled Trazodone Meal Information Percent Meal Consumed - Breakfast: 100 Percent Meal Consumed - Lunch: 100 Percent Meal Consumed - Dinner: 90 Subjective Subjective The patient was seen and assessed and interval progress reviewed in a multidisciplinary team meeting with the treatment team. For details, see the "Impression" section. Overall I spent a total of 48 minutes for this inpatient follow-up including review of chart records, direct evaluation of the patient [id number], counseling the patient, medication education with the patient, risk assessment, discussion during interdisciplinary treatment rounds, and documentation in the electronic health record. Physical Exam Psychiatric Orientation: alert, oriented to person, oriented to place, oriented to time and cooperative Apperance: appropriately dressed and appropriately groomed Eye Contact: + fair eye contact Motor Behavior: + psychomotor agitation (restless) Speech: normal rate/rhythm/volume of speech Affect: + anxious affect and + labile affect Mood: + depressed mood and + anxious mood Thought Process: + circumstantial thought process and + perseveration Thought Content: reality based without delusions, + hopelessness, + guilt and + self deprecation Suicidal Thoughts: denies suicidal plan and denies suicidal intent; + reports suicidal thoughts Homicidal Thoughts: denies homicidal thoughts Hallucinations: no auditory hallucinations and no visual hallucinations Cognition: recent memory grossly intact, remote memory grossly intact and language grossly intact; + attention not intact (very distracted) Estimated Intelligence: average estimated intelligence Insight: + fair insight Judgment: + fair judgement Vital Signs (Past 24 Hours) Last Vital Signs Temp 36.5 C 08/24/23 06:00 Pulse 74 08/24/23 06:00 Resp 18 08/24/23 06:00 BP 109/74 08/24/23 06:05 Pulse Ox 96 08/23/23 06:20 O2 Del Method Room Air 08/23/23 06:20 Results & Data ([facility]) Current Inpatient Medications Current Inpatient Medications: Current Inpatient Medications Acetaminophen (Acetaminophen 325 Mg Tab) 650 mg PO Q4H PRN PRN Reason: Headache or Minor Fever Stop: 09/21/23 21:17 Al Hydrox/Mg Hydrox/Simethicone (Aluminum/Magnesium Susp 30 Ml Udc) 30 ml PO Q4H PRN PRN Reason: GI Upset Stop: 09/21/23 21:17 Bismuth Subsalicylate (Bismuth Subsalicylate Liqd 236 Ml) 15 ml PO PRN PRN PRN Reason: Loose Stool Stop: 09/21/23 21:17 Duloxetine HCl (Duloxetine Hcl 60 Mg Cap) 60 mg PO QAM JOSELYN Stop: 09/22/23 10:58 Last Admin: 08/24/23 07:58 Dose: 60 mg Ergocalciferol (Ergocalciferol 50,000 Units 1250 Mcg Cap) 50,000 units PO Q4D JOSELYN Stop: 09/22/23 10:59 Last Admin: 08/23/23 11:27 Dose: 50,000 units Hydroxyzine HCl (Hydroxyzine Hcl 25 Mg Tab) 25 mg PO Q4H PRN PRN Reason: Anxiety Stop: 09/21/23 21:17 Lorazepam (Lorazepam 1 Mg Tab) 1 mg PO TID JOSELYN Stop: 09/22/23 13:59 Last Admin: 08/24/23 13:31 Dose: 1 mg Magnesium Hydroxide (Magnesium Hydroxide Susp 30 Ml Udc) 30 ml PO DAILY PRN PRN Reason: Constipation Stop: 09/21/23 21:17 Sodium Chloride (Sodium Chloride 0.65% Na Soln 45 Ml (Mcpherson)) 1 - 2 sprays NA PRN PRN PRN Reason: Nasal Dryness/Congestion Stop: 09/21/23 21:17 Trazodone HCl (Trazodone Hcl 100 Mg Tab) 150 mg PO HS JOSELYN Stop: 09/22/23 20:59 Last Admin: 08/23/23 22:07 Dose: 150 mg Mental Health & Subst Abuse Tx Therapist Name of Therapist: Josephine Priest Post Discharge Appointments Primary Care Physician Name Of Family Doctor/PCP: Dr. Deluca
[2023-08-24] MEDS: traZODone HCL 100 MG TAB PO SCH (22:22)
[2023-08-25] MEDS: LORazepam 1 MG TAB PO SCH ×2 (08:39→14:47)
[2023-08-25] MEDS: DULoxetine HCL 60 MG CAP PO SCH (08:39)
--- NOTE | 2023-08-25 09:28 | Psychiatric Progress Note ---
Date of Service August 25, 2023 Impression / Recommendations Impression Very likeable 48 y/o man with history of depression and anxiety, recently discharged following an 18-day stay for severe depression with prominent melancholic features. Over the past few days his symptoms have worsened substantially and he's now contemplating hanging himself because he no longer has access to firearms. He has remained completely adherent to the medication regimen prescribed at discharge. Mr. Chaudhry clearly presents a somewhat alarming risk of completing suicide. An uncle and a cousin by suicide. He has a current plan of high potential lethality, and the previous very high-lethality plan that's no longer practicable for him involved detailed planning of a range of practical issues related to suicide. He feels hopeless, self-reproachful, and very anxious. 08/25/2023: Remains very negative, preoccupied with failures (most of which are objectively trivial). Remains unable to focus due to repetitive thoughts. Thinks he's sleeping OK with trazodone but wakes up "feeling awful" in terms of depressed mood and notes some gradual improvement over the course of the day. Discussed possibility of increasing duloxetine, which has been at a 60 mg dose for about 4 weeks. He'd like to do that. Pt watched "most of" an online training video about ECT yesterday evening. He says it "glitched out" after most of the didactic material but before the actual treatment was depicted. I'll track that down so he can watch the treatment itself. 08/24/2023: Has been tentatively accepted for ECT by Dr. Holt at [facility], who agrees he is an excellent candidate for that treatment. We are currently awaiting bed availability. Pt has begun to have intrusive worries about the fact that he knows people who work at [facility]. Discussed that he'll almost certainly need outpatient ECT and that there is the only place for outpatient ECT that would make any sense even if he were to be admitted elsewhere. Is quite anxious, with the perseverative/obsessive worries seen during his prev ious admission. 08/23/2023: Pt is psychiatrically unstable and requires psychiatric hospitalization for safety, stabilization, and medication management, but should also strongly be considered for ECT since his presentation is very consistent with features associated with excellent response to ECT. He is very interested in pursuing this. I reviewed pt's current medications and we agreed to maintain them unchanged for now. (1) Major depressive disorder, recurrent, severe without psychotic features: (2) Generalized anxiety disorder: (3) Vitamin D deficiency: Plan 08/25/2023: * increase duloxetine to 90 mg daily - prior to admission medication (started 07/29/2023 at 20 mg, titrated to 60 mg as of 07/31/2024) * continue lorazepam 1 mg TID (scheduled) - prior to admission medication (started 07/31/2023) * continue trazodone 150 mg QHS (scheduled) - prior to admission medication (titrated to this dose on 08/06/2024) * continue ergocalciferol 50,000 IU twice weekly until 08/27/2023), then switch to cholecalciferol 2,000 IU daily (started 07/30/2023 for level of 19.5 ng/mL) * await bed availability at [facility] then transfer for ECT 08/24/2023: * continue duloxetine 60 mg daily - prior to admission medication (started 07/29/2023 at 20 mg, titrated to 60 mg as of 07/31/2024) * continue lorazepam 1 mg TID (scheduled) - prior to admission medication (started 07/31/2023) * continue trazodone 150 mg QHS (scheduled) - prior to admission medication (titrated to this dose on 08/06/2024) * continue ergocalciferol 50,000 IU twice weekly until 08/27/2023), then switch to cholecalciferol 2,000 IU daily (started 07/30/2023 for level of 19.5 ng/mL) * await bed availability at [facility] then transfer for ECT 08/23/2023: The patient was admitted to the [facility] ([facility]) on q15 minute checks (behavioral with suicide precautions) for safety.The patient will participate in group, recreational, and milieu ther apies and will be offered additional individual and family sessions as clinically appropriate. * continue duloxetine 60 mg daily - prior to admission medication * continue lorazepam 1 mg TID - prior to admission medication * continue trazodone 150 mg QHS (scheduled) - prior to admission medication * continue ergocalciferol 50,000 IU twice weekly for 2 more weeks, then switch to cholecalciferol 2,000 IU daily * pursue referral for ECT Inventory Assets Strengths: supportive relationships, has local supports, voluntary, good insight, intelligent, employed Needs: safety and stabilization, medication adjustment, additional coping skills Suicide Risk Level Suicide Risk Level: High-Moderate (q15 min suicide checks) (feels safe on the unit and readily agrees to notify staff if he feels as if he might act on suicidal thoughts, but had a high-lethality plan prior to admission) Risk Factors Assessment Male: Yes : Yes Do You Have Access To A Gun?: Yes ( is able to secure guns) Health Problems: No Mental Health Diagnoses: Yes Substance Use Disorders: No Previous Attempt: No Family History of Suicide: Yes (uncle, cousin) Previous Psychiatric Hospitalization: Yes Hopelessness: Yes Protective Factors Assessment : Yes 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 Chief Complaint "I wish I was better". Review of Systems Sleep Information Total Hours of Sleep: 7.25 Sleep Comments: Took scheduled Trazodone Meal Information Percent Meal Consumed - Breakfast: 100 Percent Meal Consumed - Lunch: 100 Percent Meal Consumed - Dinner: 90 Subjective Subjective The patient was seen and assessed and interval progress reviewed in a multidisciplinary team meeting with the treatment team. For details, see the "Impression" section. Overall I spent a total of 38 minutes for this inpatient follow-up including review of chart records, direct evaluation of the patient [id number], counseling the patient, reconciling and ordering medication, medication education with the patient, risk assessment, discussion during interdisciplinary treatment rounds, and documentation in the electronic health record. Physical Exam Psychiatric Orientation: alert, oriented to person, oriented to place, oriented to time and cooperative Apperance: appropriately dressed and appropriately groomed Eye Contact: + fair eye contact Motor Behavior: + psychomotor agitation (restless) Speech: normal rate/rhythm/volume of speech Affect: + anxious affect and + labile affect Mood: + depressed mood and + anxious mood Thought Process: + circumstantial thought process and + perseveration Thought Content: reality based without delusions, + hopelessness, + guilt and + self deprecation Suicidal Thoughts: denies suicidal plan and denies suicidal intent; + reports suicidal thoughts Homicidal Thoughts: denies homicidal thoughts Hallucinations: no auditory hallucinations and no visual hallucinations Cognition: recent memory grossly intact, remote memory grossly intact and language grossly intact; + attention not intact (very distracted) Estimated Intelligence: average estimated intelligence Insight: + fair insight Judgment: + fair judgement Vital Signs (Past 24 Hours) Last Vital Signs Temp 36.4 C 08/25/23 06:00 Pulse 105 H 08/25/23 06:16 Resp 18 08/25/23 06:00 BP 93/61 L 08/25/23 06:16 Pulse Ox 96 08/23/23 06:20 O2 Del Method Room Air 08/23/23 06:20 Results & Data ([facility]) Current Inpatient Medications Current Inpatient Medications: Current Inpatient Medications Acetaminophen (Acetaminophen 325 Mg Tab) 650 mg PO Q4H PRN PRN Reason: Headache or Minor Fever Stop: 09/21/23 21:17 Al Hydrox/Mg Hydrox/Simethicone (Aluminum/Magnesium Susp 30 Ml Udc) 30 ml PO Q4H PRN PRN Reason: GI Upset Stop: 09/21/23 21:17 Bismuth Subsalicylate (Bismuth Subsalicylate Liqd 236 Ml) 15 ml PO PRN PRN PRN Reason: Loose Stool Stop: 09/21/23 21:17 Duloxetine HCl (Duloxetine Hcl 60 Mg Cap) 60 mg PO QAM JOSELYN Stop: 09/22/23 10:58 Last Admin: 08/25/23 08:39 Dose: 60 mg Ergocalciferol (Ergocalciferol 50,000 Units 1250 Mcg Cap) 50,000 units PO Q4D JOSELYN Stop: 09/22/23 10:59 Last Admin: 08/23/23 11:27 Dose: 50,000 units Hydroxyzine HCl (Hydroxyzine Hcl 25 Mg Tab) 25 mg PO Q4H PRN PRN Reason: Anxiety Stop: 09/21/23 21:17 Lorazepam (Lorazepam 1 Mg Tab) 1 mg PO TID JOSELYN Stop: 09/22/23 13:59 Last Admin: 08/25/23 08:39 Dose: 1 mg Magnesium Hydroxide (Magnesium Hydroxide Susp 30 Ml Udc) 30 ml PO DAILY PRN PRN Reason: Constipation Stop: 09/21/23 21:17 Sodium Chloride (Sodium Chloride 0.65% Na Soln 45 Ml ([place])) 1 - 2 sprays NA PRN PRN PRN Reason: Nasal Dryness/Congestion Stop: 09/21/23 21:17 Trazodone HCl (Trazodone Hcl 100 Mg Tab) 150 mg PO HS JOSELYN Stop: 09/22/23 20:59 Last Admin: 08/24/23 22:22 Dose: 150 mg Mental Health & Subst Abuse Tx Therapist Name of Therapist: Josephine Priest Post Discharge Appointments Primary Care Physician Name Of Family Doctor/PCP: Dr. Deluca
--- NOTE | 2023-08-25 14:42 | Discharge Summary ---
Date of Service August 25, 2023 History of Present Illness 48 y/o man with longstanding depression and anxiety symptoms discharged from this service on 08/15/2023 after having been admitted on 07/25/2023. He had reported constant suicidal ruminations for the preceding 2 weeks with specific plans to shoot himself with a rifle and spent long hours hiking near his house with a rifle "waiting for the moment". He had written a suicide note that he put in the gun safe so as not to alarm his if she were to "find it too early". He spent hours identifying the best location for him to shoot himself in order to avoid his 's encountering his body and to minimize distress on the part of those who found him, but also to ensure that his body was discovered in time for his organs to be harvested. He had berated himself for "not going through with it", although the intense suicidal thoughts were ego-dystonic and contributed to his self-reproach about being a bad father and . He reported feeling as if his mind were disintegrating and being unable to think or make decisions. 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 He reported constant "dark thoughts" (nearly obsessive suicidal rumination) and anxiety. He was started on bupropion in part because of his marked difficulty focusing and concentrating but felt more "wound up" on it. He responded moderately well to duloxetine that was titrated to 60 mg daily, and addition of lorazepam 1 mg TID was very helpful for his intense anxiety. A trial of aripiprazole 5 mg was begun in an attempt to hasten the clinical response in his mood, but appeared to cause akathisia. He slept much better with trazodone 150 mg QHS. He was committed to using cognitive-behavioral tools which he found very helpful, but each time this wasn't completely effective he would conclude there was no hope of his ever feeling better. He eventually provided his with the combination to the gun safe so his arsenal of weapons could be removed. His "dark thoughts" diminished in intensity and frequency but remained present to a degree at discharge. I phoned the patient on the day of admission related to a prescription issue. He revealed that he was "not doing too well" and "having a lot of dark thoughts". He apologized for his failure to do as well as we'd hoped and said that he felt as if his mind were "falling apart". I instructed him to come to the ED for readmission, but he didn't think he could drive safely. We constructed a plan of his 's bringing him and notifying us by 6 PM that everyone was agreed on that plan (which they did). When pt arrived in the ED, he expressed surprise that the plan was admission and seemed to think I'd told him to come for outpatient medication adjustment. In the ED, he revealed a plan to hang himself (because he no longer has access to firearms). He lost his appetite about 2 days previously and began sleeping more poorly. His anxiety worsened and he reported multiple panic attacks per day (while remaining on lorazepam 1 mg TID that had been very helpful previously). On exam today pt immediately apologizes for failing outpatient treatment. He is very distracted and has trouble focusing, with consequent difficulty following the conversation and needing to start over at several points. He looks very tired and explains he slept poorly last night. This morning he's about as anxious about money as anything else, in part because this hospital is [id number] for his insurance, and in part because he fears he'll never be able to work again if his mind doesn't start functioning properly. ECT had been discussed during his previous stay in light of the severity of his depression and clear melancholic features as well as failures of multiple medication trials. He was open to considering this but then started showing improvement when bupropion was stopped and lorazepam added. Today he brings that up and asks if it should be reconsidered. The RN, director social, and I each discussed this with him over the course of the morning and upon discussing it together in a multidisciplinary team meeting agreed that ECT appears strongly indicated. Unfortunately, that treatment is not offered here so we'll need to identify a facility where it is available and might be considered. Physical Exam Psychiatric Orientation: alert, oriented to person, oriented to place, oriented to time and cooperative Apperance: appropriately dressed and appropriately groomed Eye Contact: + fair eye contact Motor Behavior: + psychomotor agitation (restless) Speech: normal rate/rhythm/volume of speech Affect: + anxious affect and + labile affect Mood: + depressed mood and + anxious mood Thought Process: + circumstantial thought process and + perseveration Thought Content: reality based without delusions, + hopelessness, + guilt and + self deprecation Suicidal Thoughts: denies suicidal plan and denies suicidal intent; + reports suicidal thoughts Homicidal Thoughts: denies homicidal thoughts Hallucinations: no auditory hallucinations and no visual hallucinations Cognition: recent memory grossly intact, remote memory grossly intact and language grossly intact; + attention not intact (very distracted) Estimated Intelligence: average estimated intelligence Insight: + fair insight Judgment: + fair judgement Vital Signs (Past 24 Hours) Last Vital Signs Temp 36.4 C 08/25/23 06:00 Pulse 105 H 08/25/23 06:16 Resp 18 08/25/23 06:00 BP 93/61 L 08/25/23 06:16 Pulse Ox 96 08/23/23 06:20 O2 Del Method Room Air 08/23/23 06:20 See admission H&P and DOD assessment. Principal Diagnosis Major Depressive Disorder, Recurrent, Severe, without Psychotic Features Generalized Anxiety Disorder Psychiatric Data See daily stay summary. In short, safety was maintained and the patient was cooperative with care. Medication changes included [] and they tolerated this well. A family session was [held] and safety plan was completed prior to discharge. Day of Discharge Assessment Today the patient voices readiness for transfer. He notes limited improvement in mood and reports continuing "dark thoughts", though . Thoughts remain organized and they are improved from admission. There is no evidence of psychosis. They agree to take mediations as prescribed and keep follow-up appointments. They are stable for discharge to outpatient level of care. 08/25/2023: Remains very negative, preoccupied with failures (most of which are objectively trivial). Remains unable to focus due to repetitive thoughts. Thinks he's sleeping OK with trazodone but wakes up "feeling awful" in terms of depressed mood and notes some gradual improvement over the course of the day. Discussed possibility of increasing duloxetine, which has been at a 60 mg dose for about 4 weeks. He'd like to do that. Pt watched "most of" an online training video about ECT yesterday evening. He says it "glitched out" after most of the didactic material but before the actual treatment was depicted. I'll track that down so he can watch the treatment itself. 08/24/2023: Has been tentatively accepted for ECT by Dr. Holt at [facility], who agrees he is an excellent candidate for that treatment. We are currently awaiting bed availability. Pt has begun to have intrusive worries about the fact that he knows people who work at [facility]. Discussed that he'll almost certainly need outpatient ECT and that there is the only place for outpatient ECT that would make any sense even if he were to be admitted elsewhere. Is quite anxious, with the perseverative/obsessive worries seen during his previous admission. 08/23/2023: Pt is psychiatrically unstable and requires psychiatric hospitalization for safety, stabilization, and medication management, but should also strongly be considered for ECT since his presentation is very consistent with features associated with excellent response to ECT. He is very interested in pursuing this. I reviewed pt's current medications and we agreed to maintain them unchanged for now. Overall I spent a total of 44 minutes on the floor for this discharge including review of chart records, review of test results, direct evaluation of the patient [id number], counseling the patient, reconciling and ordering medication, medication education with the patient, risk assessment, discussion during interdisciplinary treatment rounds, and documentation in the electronic health record. Transition of Care Transition Of Care Record: was reviewed with the patient Advance Directives Advance Directives Information Provided: Yes Advance Directives: No Mental Health Advance Directive: No Advance Directives on File: No Living Will: No Power of Infusion Pharmacist: No Advance Directives Reason:: Declines as Mental Health Visit. 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35 Clare # (Auto) 0.76 H Eos # (Auto) 0.15 Baso # (Auto) 0.05 Immature Gran # (Auto) 0.01 Sodium 139 Potassium 3.8 Chloride 103 Carbon Dioxide 30 Anion Gap 6 BUN 12 Creatinine 0.94 Est Cr Clr Drug Dosing 100.1 Est GFR ( Amer) 109.1 Est GFR (Non-Af Amer) 94.2 BUN/Creatinine Ratio 12.8 Glucose 86 Calcium 9.4 Total Bilirubin 0.6 AST 21 ALT 25 Alkaline Phosphatase 65 Total Protein 7.1 Albumin 4.6 Globulin 2.5 Albumin/Globulin Ratio 1.8 TSH 2.367 Urine Color Yellow Urine Appearance Clear Urine pH 6.5 Ur Specific Fulton 1.005 Urine Protein Negative Urine Glucose (UA) Negative Urine Ketones Negative Urine Blood Negative Urine Nitrite Negative Urine Bilirubin Negative Urine Urobilinogen Negative Ur Leukocyte Esterase Trace H Urine WBC (Auto) 1-5 Urine RBC (Auto) 0-4 U Hyaline Cast (Auto) 0 U Epithel Cells (Auto) 0-5 Urine Bacteria (Auto) Negative Salicylates < 3.0 L Urine Opiates Screen Neg Ur Methadone, Qual Neg Acetaminophen < 3 L Urine Barbiturates Neg Ur Phencyclidine (PCP) Neg U Amphetamin/Meth Scrn Neg MDMA (Ecstasy) Screen Neg U Benzodiazepines Scrn Neg Ur Cocaine Metabolite Neg U Marijuana (THC) Screen Neg Ethyl Alcohol mg/dL < 10.0 SARS-CoV-2, RNA, NAAT NEGATIVE Hospital Course (1) Major depressive disorder, recurrent, severe without psychotic features: (2) Generalized anxiety disorder: (3) Vitamin D deficiency: Plan 08/25/2023: * increase duloxetine to 90 mg daily - prior to admission medication (started 07/29/2023 at 20 mg, titrated to 60 mg as of 07/31/2024) * continue lorazepam 1 mg TID (scheduled) - prior to admission medication (started 07/31/2023) * continue trazodone 150 mg QHS (scheduled) - prior to admission medication (titrated to this dose on 08/06/2024) * continue ergocalciferol 50,000 IU twice weekly until 08/27/2023), then switch to cholecalciferol 2,000 IU daily (started 07/30/2023 for level of 19.5 ng/mL) * await bed availability at [facility] then transfer for ECT 08/24/2023: * continue duloxetine 60 mg daily - prior to admission medication (started 07/29/2023 at 20 mg, titrated to 60 mg as of 07/31/2024) * continue lorazepam 1 mg TID (scheduled) - prior to admission medication (started 07/31/2023) * continue trazodone 150 mg QHS (scheduled) - prior to admission medication (titrated to this dose on 08/06/2024) * continue ergocalciferol 50,000 IU twice weekly until 08/27/2023), then switch to cholecalciferol 2,000 IU daily (started 07/30/2023 for level of 19.5 ng/mL) * await bed availability at [facility] then transfer for ECT 08/23/2023: The patient was admitted to the [facility] ([facility] mental health unit) on q15 minute checks (behavioral with suicide precautions) for safety.The patient will participate in group, recreational, and milieu therapies and will be offered additional individual and family sessions as clinically appropriate. * continue duloxetine 60 mg daily - prior to admission medication * continue lorazepam 1 mg TID - prior to admission medication * continue trazodone 150 mg QHS (scheduled) - prior to admission medication * continue ergocalciferol 50,000 IU twice weekly for 2 more weeks, then switch to cholecalciferol 2,000 IU daily * pursue referral for ECT Mental Health & Subst Abuse Tx Therapist Name of Therapist: Josephine Priest Post Discharge Appointments Primary Care Physician Name Of Family Doctor/PCP: Dr. Deluca Discharge Plan Discharge Items Patient Disposition: Transfer Behavioral Health Fac Reason For Visit: MAJOR DEPRESSIVE DISORDER, RECURRENT Discharge Diagnosis: Major Depressive Disorder, Recurrent, Severe, without Psychotic Features Generalized Anxiety Disorder Condition on Discharge: Good Activity: Resume your previous activity Non-emergency contact: Primary Care Provider and Psychiatrist Call non-emergency contact if: you have any medication questions and your symptoms worsen Follow-up/Referrals: Tate Deluca D.O. [Primary Care Provider] - Diet: Regular Addtl Attending Provider Instructions: SPECIAL CARE INSTRUCTIONS: 1. Follow through with your scheduled aftercare appointments. If unable to keep an appointment, please call to reschedule. 2. Take your medication only as prescribed. Medication should not be changed or stopped without the approval of your doctor. In the event of worsening symptoms or concerns about side effects, contact your doctor immediately. 3. Utilize new healthy coping skills, anger management skills, and stress management skills learned during your hospitalization. Journal feelings and process them with a support person. Identify stressors or situations that may result in relapse, deterioration or inappropriate behaviors and develop a plan to deal with those issues. 4. If your coping skills are ineffective and you are in crisis, contact your outpatient providers for direction. If unable to reach your providers, please call the [facility] CRISIS LINE AT , go to the [facility] walk-in center at [address] [place] [address] A, [place], or go to the closest Emergency Room. 5. Avoid alcohol and un-prescribed drugs. 6. You have been provided with the Mental Health Advance Directives Pamphlet for your review. 7. Your condition is stable for discharge to outpatient level of care, but recovery is an ongoing process. Ifthoughts to harm yourself or others return, follow the safety plan developed during your stay. Planning for a safe return home includes securing weapons. Our treatment team recommends weaponsbe removed from the home until your outpatient provider reassesses your progress. In rare cases where the items themselvescannot be removed, guns and ammunitionshould be secured separatelyand keys stored by a reliable personoutside of the home. If you were admitted on an involuntary commitment, the police or other legal authorities may be involved in this process. AFTERCARE APPOINTMENTS: * Please call your insurance company prior to your scheduled appointment to confirm your aftercare providers are covered. Take your insurance information to your appointments. WHO TO CALL AND WHEN: Medical Emergencies: For questions or emergencies related to your hospital stay, please contact the Inpatient Behavioral Health Unit at [phone]. A synthetic filament extruder is on-call 13/03 for the Behavioral Health Unit for emergencies At any time you feel your situation is an emergency, you may also call 911 immediately. Pending Studies at Discharge: No Stand-Alone Forms: My [facility] Skilled Items DNR: No Lines: None Urinary Catheter: No Medications and DC Order Prescriptions: New trazodone 100 mg Tablet 150 mg PO HS Qty: 0 0RF lorazepam 1 mg Tablet 1 mg PO TID Qty: 0 0RF duloxetine 30 mg Capsule,Delayed Release(Dr/Ec) 90 mg PO QAM Qty: 0 0RF Continued ergocalciferol (vitamin D2) 1,250 mcg (50,000 unit) Capsule 50,000 unit PO 2XWK 30 Days Qty: 8 0RF Rx Instructions: Every four days--next dose will be 08/23/22 Discontinued trazodone 50 mg Tablet 150 mg PO HS 30 Days Qty: 90 0RF duloxetine 60 mg Capsule,Delayed Release(Dr/Ec) 60 mg PO QAM 30 Days Qty: 30 0RF lorazepam [Ativan] 1 mg tablet 1 mg PO TID Qty: 14 0RF No Action hydroxyzine HCl 25 mg Tablet 25 mg PO Q4H PRN (Reason: anxiety) 30 Days Qty: 30 0RF Discharge Orders: Discharge Order (Routine); Ordered 08/25/23 Ordered By: Salvador Dunn Admission Data Admit Date/Time: 08/22/23 21:18 Attending Provider: Salvador Dunn Admit Provider: Salvador Dunn Primary Care Provider: Tate Deluca Coding Level of Care Code 30641 D/C day mgmt > 30 min Diagnoses Major depressive disorder, recurrent, severe without psychotic features F33.2 Generalized anxiety disorder F41.1 Vitamin D deficiency E55.9 Time Spent (min) 44
[2023-08-26] MEDS ORDERED: DULoxetine HCL 30 MG CAP PO SCH (09:00)
== END 2023-08-25 19:00 | DRG 885 ==
LOC: ED 18:37 → 3S 21:18